=== PATIENT | female | born 1940 | race Caucasian/White ===

== ENCOUNTER → 2017-04-07 | Outpatient (CLI) | payer OTHER ==
[2016-03-06 23:33] VITALS: BP 155/73
--- NOTE | 2017-04-08 10:56 | MRI ---
HISTORY: Low back pain, no known injury, pain in legs Study: MRI lumbar spine without contrast Comparison: None Technique: Multiplanar multi-sequence MRI of the lumbar spine was obtained. Sagittal T1, sagittal T2 , and stir weighted images, axial T1, and axial T2 images were obtained. Findings: There is grade 1 anterolisthesis of L4 on L5. No abnormal cord or marrow signal identified. The conu s of the cord terminates normally. The surrounding soft tissues are within normal limits. Vertebral body heights are preserved. There is multilevel spondylosis and facet arthropathy present. T12 -- L1: No significant stenosis. L1 -- L2: Mild facet degenerative changes without significant stenosis. L2 -- L3: [id number] facet degenerative changes without significant stenosis. L3 -- L4: Uaei-[id number] facet degenerative changes without significant stenosis. L4 -- L5: Moderate to severe facet arthropathy with grade 1 anterolisthesis of L4 on L5. There is mod erate spinal stenosis due to these changes and a broad-based disc bulge as well as epidural lipomatos is. There is mild bilateral foraminal narrowing. L5 -- S1: There is epidural lipomatosis and moderate facet arthropathy. There is mild bilateral ashley inal narrowing. IMPRESSION: 1. Multilevel spondylosis and facet arthropathy most prominent at L4-5 where there is moderate spinal stenosis. 2. Mild bilateral foraminal narrowing at L4-5 and L5-S1. Reported By:
== END | disposition home or self-care (01) | DRG 552 ==
LOC: RAD 11:02
PROVIDERS: ATTEND Internal Medicine
DX: M54.5 Low back pain (principal); M47.896 Other spondylosis, lumbar region
CPT/HCPCS: 72148

== ENCOUNTER 2017-05-30 15:45 | Observation (INO) | payer OTHER ==
[2017-05-30] MEDS ORDERED: TUSSIONEX PENNKINETIC SUSP PO PRN (17:11)
[2017-05-30 17:26] LABS: BASOPHILS # (AUTO) 0.1 X10^3/uL (0.0-0.1); BASOPHILS % (AUTO) 0.6 % (0.2-1.0); EOSINOPHILS # (AUTO) 0.2 x10^3/uL (0.0-0.2); EOSINOPHILS % (AUTO) 1.6 % (0.9-2.9); HEMATOCRIT 39.5 % (36.0-47.0); HEMOGLOBIN 13.4 g/dL (12.0-16.0); LYMPHOCYTES # (AUTO) 1.6 X10^3/uL (1.3-2.9); LYMPHOCYTES % (AUTO) 13.2 % (21.0-51.0); MEAN CORPUSCULAR HEMOGLOBIN 30.5 pg (27.0-34.0); MEAN CORPUSCULAR HGB CONC 33.9 g/dL (33.0-35.0); MEAN CORPUSCULAR VOLUME 90.2 fL (80.0-100.0); MONOCYTES # (AUTO) 0.8 x10^3/uL (0.3-0.8); MONOCYTES % (AUTO) 6.4 % (0.0-13.0); NEUTROPHILS # (AUTO) 9.6 x10^3/uL (2.2-4.8); NEUTROPHILS % (AUTO) 78.2 % (42.0-75.0); PLATELET COUNT 278 X10^3/uL (150.0-450.0); RED BLOOD COUNT 4.38 X10^6/uL (3.5-5.4); RED CELL DISTRIBUTION WIDTH 15.1 % (11.6-16.5); WHITE BLOOD COUNT 12.3 X10^3/uL (3.6-10.0)
[2017-05-30 17:39] VITALS: BMI 32.5
[2017-05-30] MEDS ORDERED: SALINE 3% 15 ML NEB TX ONE (17:41)
[2017-05-30 17:47] LABS: PLATELET MORPHOLOGY COMMENT NORMAL (NORMAL)
[2017-05-30 17:50] LABS: ALANINE AMINOTRANSFERASE 59 Units/L (12-78); ALBUMIN 3.1 g/dL (3.4-5.0); ALKALINE PHOSPHATASE 147 Units/L (46-116); ASPARTATE AMINO TRANSFERASE 37 Units/L (15-37); BLOOD UREA NITROGEN 10 mg/dL (7-18); CALCIUM 8.8 mg/dL (8.5-10.1); CARBON DIOXIDE 25.7 mmol/L (21-32); CHLORIDE 104 mmol/L (98-107); COR CA(FOR HYPOALB) 9.5 mg/dL (8.5-10.1); CREATININE 0.87 mg/dL (0.55-1.02); SODIUM 140 mmol/L (136-145); eGFR BLACK RACES > 60 (>60); eGFR NON BLACK RACES > 60 (>60)
[2017-05-30] MEDS ORDERED: SALINE 3% 15 ML NEB TX NEB ONE (18:00)
[2017-05-30] MEDS ORDERED: NS 1/2 1000 ML IV 1,000 ML IV ONE (20:33)
[2017-05-30] MEDS: DUONEB 0.5 MG/3 MG NEB SCH (20:42)
[2017-05-30] MEDS ORDERED: MAALOX or MYLANTA PO PRN (21:45)
[2017-05-30] MEDS: NS 1/2 1000 ML IV 1,000 ML IV SCH (21:58)
[2017-05-30] MEDS: FORTAZ or TAZICEF INJ 1 GM in NS 100 ML IV + SPIKE MINIBAG* 100 ML IV SCH (21:58)
[2017-05-30] MEDS: ROBITUSSIN DM PO SCH (22:00)
[2017-05-30 22:23] LABS: CKMB % 2.8 % (<4); CREATINE KINASE 36 Units/L (26-192); CREATINE KINASE MB < 1.0 ng/mL (0-4.0); TROPONIN I < 0.02 ng/mL (0-1.5)
--- NOTE | 2017-05-30 22:36 | RAD ---
Indication: Wheezing and cough Exam: PA and lateral Comparison: 03/06/2016 Findings: The left ventricle is mildly enlarged. The pulmonary vessels are normal. The lungs are mild ly hyperinflated. No consolidation or effusion is seen. The bones are intact. Impression: Stable chronic changes with no acute abnormality seen. Reported By:
[2017-05-31 05:37] LABS: BASOPHILS # (AUTO) 0.1 X10^3/uL (0.0-0.1); BASOPHILS % (AUTO) 0.6 % (0.2-1.0); EOSINOPHILS # (AUTO) 0.2 x10^3/uL (0.0-0.2); EOSINOPHILS % (AUTO) 2.3 % (0.9-2.9); HEMATOCRIT 34.5 % (36.0-47.0); HEMOGLOBIN 11.9 g/dL (12.0-16.0); LYMPHOCYTES # (AUTO) 1.9 X10^3/uL (1.3-2.9); LYMPHOCYTES % (AUTO) 17.6 % (21.0-51.0); MEAN CORPUSCULAR HEMOGLOBIN 31.2 pg (27.0-34.0); MEAN CORPUSCULAR HGB CONC 34.6 g/dL (33.0-35.0); MEAN CORPUSCULAR VOLUME 90.2 fL (80.0-100.0); MEAN PLATELET VOLUME 7.2 fL (7.4-11.0); MONOCYTES # (AUTO) 0.9 x10^3/uL (0.3-0.8); MONOCYTES % (AUTO) 8.6 % (0.0-13.0); NEUTROPHILS # (AUTO) 7.6 x10^3/uL (2.2-4.8); NEUTROPHILS % (AUTO) 70.9 % (42.0-75.0); PLATELET COUNT 236 X10^3/uL (150.0-450.0); RED BLOOD COUNT 3.82 X10^6/uL (3.5-5.4); RED CELL DISTRIBUTION WIDTH 14.8 % (11.6-16.5); WHITE BLOOD COUNT 10.8 X10^3/uL (3.6-10.0)
[2017-05-31 05:46] LABS: ALANINE AMINOTRANSFERASE 49 Units/L (12-78); ALBUMIN 2.5 g/dL (3.4-5.0); ALKALINE PHOSPHATASE 121 Units/L (46-116); ASPARTATE AMINO TRANSFERASE 32 Units/L (15-37); BLOOD UREA NITROGEN 10 mg/dL (7-18); CALCIUM 8.2 mg/dL (8.5-10.1); CHLORIDE 107 mmol/L (98-107); COR CA(FOR HYPOALB) 9.4 mg/dL (8.5-10.1); SODIUM 142 mmol/L (136-145); TOTAL PROTEIN 5.9 g/dL (6.4-8.2); eGFR BLACK RACES > 60 (>60); eGFR NON BLACK RACES > 60 (>60)
[2017-05-31] MEDS: FORTAZ or TAZICEF INJ 1 GM in NS 100 ML IV + SPIKE MINIBAG* 100 ML IV SCH ×3 (05:51→21:14)
[2017-05-31 06:16] LABS: METAMYELOCYTES % 3; PLATELET MORPHOLOGY COMMENT NORMAL (NORMAL)
--- NOTE | 2017-05-31 06:45 | RAD ---
HISTORY: Pneumonia, wheezing Study: Single-view chest Comparison: 05/30/2017. Findings: Cardiac monitoring electrodes are noted on the chest. The trachea is midline. The heart size is upper normal with aortic uncoiling. The lungs are normally inflated. No infiltrate, CHF, pleural fluid or pneumothorax is seen. Osseous structures are intact. IMPRESSION: No acute cardiopulmonary disease. Reported By:
[2017-05-31] MEDS: DUONEB 0.5 MG/3 MG NEB SCH ×5 (08:30→20:16)
[2017-05-31] MEDS ORDERED: ZOFRAN INJ 4 MG VIAL IVP PRN (08:44)
[2017-05-31] MEDS ORDERED: PROCALAMINE 3 % 1,000 ML IV SCH ×2 (10:00→16:00)
[2017-05-31] MEDS ORDERED: NS 1/2 1000 ML IV 1,000 ML IV ONE (10:05)
[2017-05-31] MEDS: NS 1/2 1000 ML IV 1,000 ML IV SCH ×2 (10:40→16:37)
[2017-05-31] MEDS: ROBITUSSIN DM PO SCH ×5 (10:41→21:09)
[2017-05-31] MEDS: ALBUMIN HUMAN 25%- 100ML 100 ML IV SCH (10:41)
[2017-05-31] MEDS ORDERED: TYLENOL 325 MG TAB PO PRN (15:08)
[2017-05-31] MEDS ORDERED: ULTRAM PO PRN ×2 (17:06→17:47)
[2017-05-31] MEDS ORDERED: LEVOTHYROXINE SODIUM 125 MCG PO SCH (17:15)
[2017-05-31] MEDS ORDERED: VITAMIN D3 PO SCH (21:00)
[2017-05-31] MEDS ORDERED: THEOPHYLLINE 300 MG PO SCH (21:00)
[2017-05-31] MEDS ORDERED: CHOLECALCIFEROL PO SCH (21:00)
[2017-05-31] MEDS ORDERED: ZANAFLEX PO SCH (21:00)
[2017-05-31] MEDS ORDERED: ROPINIROLE HYDROCHLORIDE 0.25 MG PO SCH (21:00)
[2017-05-31] MEDS ORDERED: KLONOPIN TAB 1 MG PO SCH (21:00)
[2017-05-31] MEDS ORDERED: CLONAZEPAM 1 MG PO SCH (21:00)
[2017-05-31] MEDS ORDERED: PATIENT'S HOME MEDICATION (Tizanidine Hcl [Zanaflex 4 Mg] 1 TAB) PO SCH (21:00)
[2017-05-31] MEDS: THEO-DUR TAB 300 MG PO SCH (21:10)
[2017-05-31] MEDS: REQUIP PO SCH (21:10)
[2017-06-01 06:12] LABS: BASOPHILS # (AUTO) 0.1 X10^3/uL (0.0-0.1); BASOPHILS % (AUTO) 0.9 % (0.2-1.0); EOSINOPHILS # (AUTO) 0.3 x10^3/uL (0.0-0.2); EOSINOPHILS % (AUTO) 2.9 % (0.9-2.9); HEMATOCRIT 32.5 % (36.0-47.0); HEMOGLOBIN 11.1 g/dL (12.0-16.0); LYMPHOCYTES # (AUTO) 1.7 X10^3/uL (1.3-2.9); LYMPHOCYTES % (AUTO) 16.2 % (21.0-51.0); MEAN CORPUSCULAR HEMOGLOBIN 30.9 pg (27.0-34.0); MEAN CORPUSCULAR HGB CONC 34.3 g/dL (33.0-35.0); MEAN CORPUSCULAR VOLUME 90.2 fL (80.0-100.0); MEAN PLATELET VOLUME 7.5 fL (7.4-11.0); MONOCYTES # (AUTO) 0.9 x10^3/uL (0.3-0.8); MONOCYTES % (AUTO) 8.7 % (0.0-13.0); NEUTROPHILS # (AUTO) 7.5 x10^3/uL (2.2-4.8); NEUTROPHILS % (AUTO) 71.3 % (42.0-75.0); PLATELET COUNT 208 X10^3/uL (150.0-450.0); RED CELL DISTRIBUTION WIDTH 14.9 % (11.6-16.5); WHITE BLOOD COUNT 10.5 X10^3/uL (3.6-10.0)
--- NOTE | 2017-06-01 06:26 | RAD ---
HISTORY: Shortness of breath Study: Chest AP portable Comparison: May 31, 2017 Findings: The heart is mildly enlarged. No congestive heart failure is noted. No acute alveolar infiltrates or pleural effusions are identified. The bony thorax is unremarkable. IMPRESSION: Mild cardiomegaly without congestive heart failure No definite infiltrates Reported By:
[2017-06-01] MEDS: FORTAZ or TAZICEF INJ 1 GM in NS 100 ML IV + SPIKE MINIBAG* 100 ML IV SCH (06:34)
[2017-06-01 06:38] LABS: ALANINE AMINOTRANSFERASE 41 Units/L (12-78); ALBUMIN 2.8 g/dL (3.4-5.0); ALKALINE PHOSPHATASE 110 Units/L (46-116); ASPARTATE AMINO TRANSFERASE 23 Units/L (15-37); BLOOD UREA NITROGEN 10 mg/dL (7-18); CALCIUM 8.4 mg/dL (8.5-10.1); CARBON DIOXIDE 28.3 mmol/L (21-32); CHLORIDE 103 mmol/L (98-107); COR CA(FOR HYPOALB) 9.4 mg/dL (8.5-10.1); CREATININE 0.73 mg/dL (0.55-1.02); SODIUM 140 mmol/L (136-145); TOTAL PROTEIN 6.1 g/dL (6.4-8.2); eGFR BLACK RACES > 60 (>60); eGFR NON BLACK RACES > 60 (>60)
[2017-06-01] MEDS ORDERED: SYNTHROID 125 mcg TAB PO SCH (07:00)
[2017-06-01 07:16] LABS: PLATELET MORPHOLOGY COMMENT NORMAL (NORMAL)
[2017-06-01] MEDS ORDERED: NS 1/2 1000 ML IV 1,000 ML IV ONE (08:56)
[2017-06-01] MEDS: THEO-DUR TAB 300 MG PO SCH (08:59)
[2017-06-01] MEDS: ROBITUSSIN DM PO SCH ×2 (08:59→13:02)
[2017-06-01] MEDS: DUONEB 0.5 MG/3 MG NEB SCH ×2 (08:59→11:45)
[2017-06-01] MEDS ORDERED: MOBIC TAB 15 MG PO SCH (09:00)
[2017-06-01] MEDS ORDERED: ASPIRIN EC 81 MG PO SCH (09:00)
[2017-06-01] MEDS: REQUIP PO SCH (09:00)
[2017-06-01] MEDS: NS 1/2 1000 ML IV 1,000 ML IV SCH ×2 (09:00→11:25)
[2017-06-01] MEDS: ALBUMIN HUMAN 25%- 100ML 100 ML IV SCH (09:00)
[2017-06-01 13:09] VITALS: BP 136/68
--- NOTE | 2017-06-01 13:11 | DR.UPDATE ---
H&P Update History and Physical Update: was seen in the office on 05/30/17. A H&P was completed prior to admission. Patient has been seen and examined with no changes noted to H&P. Changes noted: NO Yes with the following:
--- NOTE | 2017-06-02 10:44 | PCM.PROG ---
Progress Note - Progress Note for Day of Date: 05/31/17 - Subjective Subjective: IS BEING TREATED FOR BRONCHOPNEUMONIA. TODAY, SHE IS ALERT AND ORIENTED, SITTING UP IN BED ON MORNING ROUNDS. PATIENTS FAMILY IS AT BEDSIDE. SHE CONTINUES WITH COMPLAINTS OF PRODUCTIVE COUGH AND SHORTNESS OF BREATH. SHE ALSO REPORTS NAUSEA THIS MORNING. SPUTUM AT BEDSIDE IS NOTED TO BE THICK AND YELLOW IN COLOR. ON EXAMINATION, HEART IS REGULAR IN RATE AND RHYTHM. BILATERAL LUNGS CONTINUE WITH SCATTERED WHEEZING AND RHONCHI. ABDOMEN IS ROUND, SOFT, AND NON-TENDER WITH NORMAL BOWEL SOUNDS NOTED IN ALL QUADRANTS. THERE IS NORMAL RANGE OF MOTION NOTED TO ALL EXTREMITIES. HER VITALS THIS MORNING ARE 98.2-94-20-93%-162/69. LABS WERE OBTAINED. ABNORMAL LAB VALUES INCLUDE THE FOLLOWING: WBC 10.8, HGB 11.9, HCT 34.5, GLUCOSE 100, CALCIUM 8.2, ALK PHOS 121 , TOTAL PROTEIN 5.9, ALBUMIN 2.5. SPUTUM AND BLOOD CULTURES ARE PENDING RESULTS. A CHEST XRAY WAS OBTAINED THIS MORNING AND REPORTED NO ACUTE CARDIOPULMONARY DISEASE. TODAY, WE WILL START PROCALAMINE AND ALBUMIN DUE TO PROTEIN DEFICIENCY. OTHERWISE, WE WILL CONTINUE WITH IV ANTIBIOTICS AND RESPIRATORY TREATMENTS. WE PLAN TO FOLLOW UP WITH AM LABS AND CHEST XRAY AND CONTINUE TO MONITOR PATIENT. - Past Medical Family Social History Past Med/Fam/Surg Hx: No changes since H&P Allergies: Allergies cefdinir Allergy (Mild, Verified 05/30/17 17:02) patient states it makes her itch all over and grabs at her hands. - Review of Systems ROS: No change since H&P - Vital Signs and I&O's Vital Signs: Temperature 98.9 F Pulse Rate [Right Brachial] 110 Pulse Rate 100 Respiratory Rate 20 Blood Pressure [Right Arm] 136/68 Blood Pressure 155/73 O2 Sat by Pulse Oximetry 92 Intake and Output: Intake & Output 05/30/17 05/31/17 06/01/17 06/02/17 11:59 11:59 11:59 11:59 Intake Total 1520 3090 Balance 1520 3090 - Physical Exam Oriented: Normal Eyes: Normal Ear: Normal Nose: Normal Throat: Normal Respiratory: Right, Left, Generalized, Wheezes, Rhonchi Cardiovascular: Normal. negative: S3, S4, Murmur : Normal Auscultation: Bowel Sounds: Normal Palpation: Normal Tenderness: Normal. negative: Rebound, Guarding, Rigidity Skin: Normal Musculoskeletal: Normal Psychiatric: Normal Mood Description: Calm Affect: Normal Speech Pattern: Clear, Appropriate - Laboratory and Diagnostics Result Diagrams: 06/01/17 04:50 06/01/17 04:50 Labs: 05/30/17 17:10 Blood Blood Culture - Preliminary 05/30/17 17:01 Blood Blood Culture - Preliminary 05/30/17 18:36 Sputum - Expectorated Sputum Sputum Culture - Final 05/30/17 18:36 Sputum - Expectorated Sputum - Final Laboratory WBC 10.5 X10^3/uL (3.6-10.0) H 06/01/17 04:50 RBC 3.60 X10^6/uL (3.5-5.4) 06/01/17 04:50 Hgb 11.1 g/dL (12.0-16.0) L 06/01/17 04:50 Hct 32.5 % (36.0-47.0) L 06/01/17 04:50 MCV 90.2 fL (80.0-100.0) 06/01/17 04:50 MCH 30.9 pg (27.0-34.0) 06/01/17 04:50 MCHC 34.3 g/dL (33.0-35.0) 06/01/17 04:50 RDW 14.9 % (11.6-16.5) 06/01/17 04:50 Plt Count 208 X10^3/uL (150.0-450.0) 06/01/17 04:50 Plt Count Comment Adequate (ADEQUATE) 06/01/17 04:50 MPV 7.5 fL (7.4-11.0) 06/01/17 04:50 Neut % 71.3 % (42.0-75.0) 06/01/17 04:50 Lymph % 16.2 % (21.0-51.0) L 06/01/17 04:50 [place] % 8.7 % (0.0-13.0) 06/01/17 04:50 Eos % 2.9 % (0.9-2.9) 06/01/17 04:50 Baso % 0.9 % (0.2-1.0) 06/01/17 04:50 Neut # 7.5 x10^3/uL (2.2-4.8) H 06/01/17 04:50 Lymph # 1.7 X10^3/uL (1.3-2.9) 06/01/17 04:50 [place] # 0.9 x10^3/uL (0.3-0.8) H 06/01/17 04:50 Eos # 0.3 x10^3/uL (0.0-0.2) H 06/01/17 04:50 Baso # 0.1 X10^3/uL (0.0-0.1) 06/01/17 04:50 Absolute Nucleated RBC 0.0 /100WBC 06/01/17 04:50 Total Counted 100 06/01/17 04:50 Neutrophils % (Manual) 71 % (39-76) 06/01/17 04:50 Lymphocytes % (Manual) 19 % (13-43) 06/01/17 04:50 Monocytes % (Manual) 8 % (4-9) 06/01/17 04:50 Eosinophils % (Manual) 2 % (0-6) 06/01/17 04:50 Metamyelocytes % 3 05/31/17 04:42 Atypical Lymphocytes 2 05/30/17 17:01 Plt Morphology Comment Normal (NORMAL) 06/01/17 04:50 RBC Morphology Normal (NORMAL) 06/01/17 04:50 Sodium 140 mmol/L (136-145) 06/01/17 04:50 Corrected Sodium TNP 06/01/17 04:50 Potassium 4.3 mmol/L (3.5-5.1) 06/01/17 04:50 Chloride 103 mmol/L (98-107) 06/01/17 04:50 Carbon Dioxide 28.3 mmol/L (21-32) 06/01/17 04:50 BUN 10 mg/dL (7-18) 06/01/17 04:50 Creatinine 0.73 mg/dL (0.55-1.02) 06/01/17 04:50 Est GFR (MDRD) Af Amer > 60 (>60) 06/01/17 04:50 Est GFR (MDRD) Non-Af > 60 (>60) 06/01/17 04:50 Glucose 106 mg/dL (65-99) H 06/01/17 04:50 Calcium 8.4 mg/dL (8.5-10.1) L 06/01/17 04:50 Corrected Calcium 9.4 mg/dL (8.5-10.1) 06/01/17 04:50 Total Bilirubin 0.40 mg/dL (0.2-1.0) 06/01/17 04:50 AST 23 Units/L (15-37) 06/01/17 04:50 ALT 41 Units/L (12-78) 06/01/17 04:50 Alkaline Phosphatase 110 Units/L (46-116) 06/01/17 04:50 Creatine Kinase 36 Units/L (26-192) 05/30/17 21:53 CK-MB (CK-2) < 1.0 ng/mL (0-4.0) 05/30/17 21:53 CK/CKMB % Calc 2.8 % (<4) 05/30/17 21:53 Troponin I < 0.02 ng/mL (0-1.5) 05/30/17 21:53 Total Protein 6.1 g/dL (6.4-8.2) L 06/01/17 04:50 Albumin 2.8 g/dL (3.4-5.0) L 06/01/17 04:50 Globulin 3.3 g/dL (2.5-4.5) 06/01/17 04:50 Albumin/Globulin Ratio 0.8 Ratio (1.1-2.1) L 06/01/17 04:50 - Plan (1) Bronchopneumonia Status: Acute Plan: CONTINUE PNEUMONIA PROTOCOL, CONTINUE FORTAZ, CONTINUE SUPPLEMENTAL OXYGEN , CONTINUE TO MONITOR
== END 2017-06-01 13:15 | disposition home or self-care (01) ==
LOC: MED/SURG 15:45
PROVIDERS: ADMIT Internal Medicine; ATTEND Internal Medicine
DX: J18.0 Bronchopneumonia, unspecified organism (principal); E03.8 Other specified hypothyroidism; I10 Essential (primary) hypertension; E55.9 Vitamin D deficiency, unspecified; J44.9 Chronic obstructive pulmonary disease, unspecified; R06.02 Shortness of breath; D72.828 Other elevated white blood cell count
CPT/HCPCS: 36415; 71045; 71046; 80053; 82550; 82553; 84484; 85025; 87040; 87070; 87205; 93005; 94640; 94760; A4222; B5200; P9047; G0378; J0713; J2405; J7620

== ENCOUNTER 2020-05-19 16:50 | Inpatient (IN) ==
[2020-05-19 17:07] LABS: ABG BASE EXCESS 2.3 mmol/L (-2.0-2.0)
[2020-05-19 17:10] VITALS: BMI 32.3
--- NOTE | 2020-05-19 17:23 | DR.SOBA ---
HPI Time Seen Time Seen by Provider: 05/19/20 17:09 HPI Comment HPI Comment: PATIENT WITH A HISTORY OF COPD, CONGESTIVE HEART FAILURE, RECENTLY HOSPITALIZED AT [facility] IN [facility], 2 WEEKS AGO, INTUBATED FOR RESPIRATORY FAILURE. NOW COMPLAINS OF INCREASING DYSPNEA X 1 WEEK ASSOCIATED WITH A PRODUCTIVE COUGH CLEAR SPUTUM AND ORTHOPNEA. DENIES CHEST PAIN, FEVER, CHILLS. HOSPITALIZED 02/01/2020 AT [facility] FOR RESPIRATORY FAILURE, PLACED ON VENTILATOR. Complaints Chief Complaint Doctors Comments: PRODUCTIVE COUGH, DIFFICULTY BREATHING COVID-19 Coronavirus risk:travel/contact w/high risk person: No Has patient experienced Coronavirus symptoms: No Reviewed Nurses Notes Reviewed: Yes Source History Provided: Patient and EMS Mode of Arrival Mode of Arrival: Ambulatory Timing Onset of Chief Complaint: 04/14/20 Context Onset:: At Rest History of:: COPD, CHF and Intubation Modifying Factors Worsens:: Exertion and Lying Flat Associated Signs and Symptoms Associated Signs and Symptoms: Cough If Cough Cough: Productive and Clear PMH PMH Past Medical History: Angina, Asthma and Hypothyroidism Past Surgical History: Yes Surgical History: Angioplasty/Stents and Cholecystectomy Family History Family Medical History: Cancer, Coronary Artery Disease and Hypertension Social History Do you use any recreational Drugs:: No Travel Risk Coronavirus risk:travel/contact w/high risk person: No Has patient experienced Coronavirus symptoms: No Infectious screening Isolation: Standard ROS Review of Systems Constitutional: No Symptoms Reported Eyes: No Symptoms Reported ENTM: No Symptoms Reported Respiratoy: See HPI, Productive Cough, Orthopnea and Short of Breath Cardiovascular: See HPI and Other (DYSPNEA AT REST) Gastrointestinal/Abdominal: No Symptoms Reported Genitourinary: No Symptoms Reported Neurological: No Symptoms Reported Musculoskeletal: No Symptoms Reported Integumentary: No Symptoms Reported Hematologic/Lymphatic: No Symptoms Reported Endocrine: No Symptoms Reported Psychiatric: No Symptoms Reported All Other Systems: Reviewed and Negative PE Vital Signs Vitals: Temperature 99.7 F Pulse Rate 84 Respiratory Rate 27 Blood Pressure [Right Arm] 127/83 Blood Pressure 140/65 O2 Sat by Pulse Oximetry 98 General Limitations: No Limitations General Appearance: Alert and In Distress (MILD TACHYPNEA) Head Head Exam: Normal Inspection Eyes Eye exam: Normal Appearance and PERRL ENT ENT Exam: Normal Exam Neck Neck Exam: Normal Inspection and Full ROM Chest Chest Inspection: Normal Inspection and Symmetric Chest Wall Rise Respiratory Respiratory Exam: Other (COARSE BREATH SOUNDS, NO WHEEZES, RALES OR RHONCHI) Respiratory Exam: Bilateral: Clear to Auscultation Cardiovascular Cardiovascular Exam: Normal Rhythm, Tachycardia and JVD (MILD JVD AT 30 DEGREES ANGLE OF MANDIBLE) Abdominal Exam Abdominal Exam: Normal Inspection, Normal Bowel Sounds and Soft Extremities Extremities Exam: Edema (1+ PRETIBIAL EDEMA) Back Back Exam: Normal Inspection Neurologic Neurological Exam: Alert and Oriented X3 Psychiatric Psychiatric Exam: Normal Affect and Normal Mood Skin Skin Exam: Warm, Dry, Intact and Normal Color MDM Differential Diagnosis Differential Diagnosis: CHF, COPD, Pneumonia and Pulmonary embolism COURSE Treatment Treatment: ARRIVED TO EMERGENCY ROOM PULSE OXIMETRY 89% ROOM AIR, PLACED ON OXYGEN 3 LITERS NASAL CANNULA, PULSE OX IMPROVED TO 97%, AFTER 2 SETS OF BLOOD CULTURES ADMINISTERED LEVAQUIN 500 MG IVPB Consultation Call Returned: 19:35 Consultation Comments: DISCUSSED WITH DR MARTINO AT 1935 FOR ADMISSION Education/Counseling Education/Counseling: Patient and Counseling Educated On: Treatment and Diagnosis ROR Labs Reviewed Result Diagrams: 05/19/20 17:17 05/19/20 17:17 Laboratory: WBC 9.7 X10^3/uL (3.6-10.0) 05/19/20 17:17 RBC 3.07 X10^6/uL (3.5-5.4) L 05/19/20 17:17 Hgb 9.4 g/dL (12.0-16.0) L 05/19/20 17:17 Hct 27.9 % (36.0-47.0) L 05/19/20 17:17 MCV 90.9 fL (80.0-100.0) 05/19/20 17:17 MCH 30.8 pg (27.0-34.0) 05/19/20 17:17 MCHC 33.9 g/dL (33.0-35.0) 05/19/20 17:17 RDW 15.9 % (11.6-16.5) 05/19/20 17:17 Plt Count 534 X10^3/uL (150.0-450.0) H 05/19/20 17:17 Plt Count Comment Increased (ADEQUATE) A 05/19/20 17:17 MPV 6.5 fL (7.4-11.0) L 05/19/20 17:17 Neut % (Auto) 92.4 % (42.0-75.0) H 05/19/20 17:17 Lymph % (Auto) 4.9 % (21.0-51.0) L 05/19/20 17:17 [place] % (Auto) 2.2 % (0.0-13.0) 05/19/20 17:17 Eos % (Auto) 0.1 % (0.9-2.9) L 05/19/20 17:17 Baso % (Auto) 0.4 % (0.2-1.0) 05/19/20 17:17 Neut # (Auto) 9.0 x10^3/uL (2.2-4.8) H 05/19/20 17:17 Lymph # (Auto) 0.5 X10^3/uL (1.3-2.9) L 05/19/20 17:17 [place] # (Auto) 0.2 x10^3/uL (0.3-0.8) L 05/19/20 17:17 Eos # (Auto) 0.0 x10^3/uL (0.0-0.2) 05/19/20 17:17 Baso # (Auto) 0.0 X10^3/uL (0.0-0.1) 05/19/20 17:17 Absolute Nucleated RBC 0.0 /100WBC 05/19/20 17:17 Total Counted 100 05/19/20 17:17 Neutrophils % (Manual) 84 % (39-76) H 05/19/20 17:17 Band Neutrophils % 8 % (0-10) 05/19/20 17:17 Lymphocytes % (Manual) 8 % (13-43) L 05/19/20 17:17 Plt Morphology Comment Normal (NORMAL) 05/19/20 17:17 RBC Morphology Normal (NORMAL) 05/19/20 17:17 D-Dimer 0.50 ug/ml (0.0-0.57) 05/19/20 17:17 Sample Site [facility] 05/19/20 17:00 ABG pH 7.500 (7.35-7.45) H 05/19/20 17:00 ABG pCO2 32.0 mmHg (35.0-45.0) L 05/19/20 17:00 ABG pO2 66.0 mmHg (80.0-100.0) L 05/19/20 17:00 ABG HCO3 25.0 mmol/L (22-26) 05/19/20 17:00 ABG O2 Saturation 94.0 % (90-100) 05/19/20 17:00 ABG Base Excess 2.3 mmol/L (-2.0-2.0) H 05/19/20 17:00 Toro Test N/a 05/19/20 17:00 A-a Gradient 44.0 mmHg 05/19/20 17:00 FiO2 21.0 05/19/20 17:00 Blood Gas Comments Pt nuria well elj cdn 05/19/20 17:00 Sodium 135 mmol/L (136-145) L 05/19/20 17:17 Corrected Sodium 136 mmol/L (136-145) 05/19/20 17:17 Potassium 3.7 mmol/L (3.5-5.1) 05/19/20 17:17 Chloride 99 mmol/L (98-107) 05/19/20 17:17 Carbon Dioxide 24.3 mmol/L (21-32) 05/19/20 17:17 BUN 11 mg/dL (7-18) 05/19/20 17:17 Creatinine 0.91 mg/dL (0.55-1.02) 05/19/20 17:17 Est GFR (MDRD) Af Amer > 60 (>60) 05/19/20 17:17 Est GFR (MDRD) Non-Af > 60 (>60) 05/19/20 17:17 Glucose 129 mg/dL (65-99) H 05/19/20 17:17 Lactic Acid 0.8 mmol/L (0.4-2.0) 05/19/20 17:17 Calcium 8.0 mg/dL (8.5-10.1) L 05/19/20 17:17 Corrected Calcium 8.8 mg/dL (8.5-10.1) 05/19/20 17:17 Total Bilirubin 0.40 mg/dL (0.2-1.0) 05/19/20 17:17 AST 21 Units/L (15-37) 05/19/20 17:17 ALT 18 Units/L (12-78) 05/19/20 17:17 Alkaline Phosphatase 99 Units/L (46-116) 05/19/20 17:17 Creatine Kinase 13 Units/L (26-192) L 05/19/20 17:17 CK-MB (CK-2) < 1.0 ng/mL (0-4.0) 05/19/20 17:17 CK/CKMB % Calc 7.7 % (<4) 05/19/20 17:17 Troponin I < 0.02 ng/mL (0-1.5) 05/19/20 17:17 B-Natriuretic Peptide 20.5 pg/mL (0-79) 05/19/20 17:17 Total Protein 6.5 g/dL (6.4-8.2) 05/19/20 17:17 Albumin 3.0 g/dL (3.4-5.0) L 05/19/20 17:17 Globulin 3.5 g/dL (2.5-4.5) 05/19/20 17:17 Albumin/Globulin Ratio 0.9 Ratio (1.1-2.1) L 05/19/20 17:17 SARS-CoV-2 (PCR) Positive (NEGATIVE) A 05/19/20 17:40 Influenza Type A (PCR) Negative (NEGATIVE) 05/19/20 17:40 Influenza Type B (PCR) Negative (NEGATIVE) 05/19/20 17:40 RSV (PCR) Negative (NEGATIVE) 05/19/20 17:40 XRAY X-ray Results: PA AND LAT CHEST XRAY CONSISTENT WITH MODERATE TO MODERATE CARDIOMEGALY, PERIBRONCHIAL CUFFING IN THE RIGHT HILAR REGION, PROMINENT PERIPHERAL PULMONARY VASCULATURE, PATCHY AIRSPACE DISEASE IN THE LOWER LOBES, NO PLEURAL EFFUSION, OR PNEUMOTHORAX EKG Rate: 100 [place]: Normal Rhythm: NSR and ST Hypertrophy: LVH Opioid Opioid Risk Tool Age (Lei box if 16-45): No History of Preadolescent Sexual Abuse: No Total: 0 Total Score Risk Category: Low Risk Copyright: Valente LR predicting aberrant behaviors Diagnosis Discharge Problem: Pneumonia due to COVID-19 virus, Congestive heart failure, Acute dyspnea
--- NOTE | 2020-05-19 17:35 | RAD ---
HISTORYSHORTNESS OF BREATH, WORSE WITH CLEAR SPUTUM PRODUCTION. PTS PHYSICIAN CALLS DEPARTMENT AND STATES THAT HE THINKS PT IS IN EARLY HEART FAILURE. PT STATES THAT SHE HAS BEEN HOME FROM [facility] IN [facility] FOR THE LAST WEEK AND FEELS LIKE [facility] radiographic [facility], AP projection, 1 imageFINDINGSModerate to severe cardiomegaly.Peribronchial cuffing in the right hilar region.Prominent peripheral pulmonary vasculature.Patchy airspace disease in the lower lobes.No pleural effusion.No pneumothorax.No acute osseous abnormality.IMPRESSIONFindings could represent acute cardiogenic edema; although an atypical/viral infectious process could also be considered.Electronically signed by: Tony Velasquez (May 19, 2020 17:33:46)
[2020-05-19] MEDS ORDERED: LEVAQUIN PREMIX IV 500 MG 500 MG/100 ML BAG IV STA (17:38)
[2020-05-19 17:41] LABS: LYMPHOCYTES # (AUTO) 0.5 X10^3/uL (1.3-2.9); MEAN PLATELET VOLUME 6.5 fL (7.4-11.0)
[2020-05-19 17:56] LABS: LACTIC ACID 0.8 mmol/L (0.4-2.0)
[2020-05-19 17:57] LABS: BASOPHILS % (AUTO) 0.4 % (0.2-1.0); BLOOD UREA NITROGEN 11 mg/dL (7-18); CARBON DIOXIDE 24.3 mmol/L (21-32); CHLORIDE 99 mmol/L (98-107); COR NA(FOR HYPERGLY) 136 mmol/L (136-145); CREATININE 0.91 mg/dL (0.55-1.02); EOSINOPHILS % (AUTO) 0.1 % (0.9-2.9); HEMATOCRIT 27.9 % (36.0-47.0); HEMOGLOBIN 9.4 g/dL (12.0-16.0); LYMPHOCYTES % (AUTO) 4.9 % (21.0-51.0); MEAN CORPUSCULAR HEMOGLOBIN 30.8 pg (27.0-34.0); MEAN CORPUSCULAR HGB CONC 33.9 g/dL (33.0-35.0); MEAN CORPUSCULAR VOLUME 90.9 fL (80.0-100.0); MONOCYTES # (AUTO) 0.2 x10^3/uL (0.3-0.8); MONOCYTES % (AUTO) 2.2 % (0.0-13.0); NEUTROPHILS % (AUTO) 92.4 % (42.0-75.0); PLATELET COUNT 534 X10^3/uL (150.0-450.0); RED BLOOD COUNT 3.07 X10^6/uL (3.5-5.4); RED CELL DISTRIBUTION WIDTH 15.9 % (11.6-16.5); SODIUM 135 mmol/L (136-145); TROPONIN I < 0.02 ng/mL (0-1.5); WHITE BLOOD COUNT 9.7 X10^3/uL (3.6-10.0); eGFR NON BLACK RACES > 60 (>60)
[2020-05-19 18:02] LABS: ALANINE AMINOTRANSFERASE 18 Units/L (12-78); ALKALINE PHOSPHATASE 99 Units/L (46-116); ASPARTATE AMINO TRANSFERASE 21 Units/L (15-37); CKMB % 7.7 % (<4); COR CA(FOR HYPOALB) 8.8 mg/dL (8.5-10.1); CREATINE KINASE 13 Units/L (26-192); CREATINE KINASE MB < 1.0 ng/mL (0-4.0); TOTAL PROTEIN 6.5 g/dL (6.4-8.2)
[2020-05-19 18:15] LABS: BAND NEUTROPHILS % 8 % (0-10)
[2020-05-19] MEDS ORDERED: NS 100 ML IV 100 ML IV ONE (18:16)
[2020-05-19] MEDS ORDERED: LEVAQUIN PREMIX IV 500 MG 500 MG/100 ML BAG IV ONE (18:16)
[2020-05-19 18:17] LABS: PLATELET MORPHOLOGY COMMENT NORMAL (NORMAL)
[2020-05-19] MEDS ORDERED: LASIX IVP ONE ×2 (19:38→19:49)
[2020-05-19] MEDS ORDERED: IVERMECTIN PO ONE (22:21)
[2020-05-19] MEDS ORDERED: PHARMACY CONSULT - IVERMECTIN XX SCH (22:21)
[2020-05-19] MEDS ORDERED: REMDESIVIR 200 MG in NS 250 ML IV 250 ML IV ONE (22:21)
[2020-05-19] MEDS ORDERED: REMDESIVIR IV ONE (22:27)
[2020-05-19] MEDS ORDERED: NS 250 ML IV 250 ML IV ONE (22:27)
[2020-05-19 22:54] LABS: BASOPHILS % (AUTO) 0.3 % (0.2-1.0); HEMATOCRIT 29.8 % (36.0-47.0); HEMOGLOBIN 9.9 g/dL (12.0-16.0); LYMPHOCYTES # (AUTO) 0.6 X10^3/uL (1.3-2.9); LYMPHOCYTES % (AUTO) 7.9 % (21.0-51.0); MEAN CORPUSCULAR HEMOGLOBIN 30.1 pg (27.0-34.0); MEAN CORPUSCULAR HGB CONC 33.4 g/dL (33.0-35.0); MEAN CORPUSCULAR VOLUME 90.1 fL (80.0-100.0); MEAN PLATELET VOLUME 6.3 fL (7.4-11.0); MONOCYTES # (AUTO) 0.6 x10^3/uL (0.3-0.8); MONOCYTES % (AUTO) 6.9 % (0.0-13.0); NEUTROPHILS # (AUTO) 6.9 x10^3/uL (2.2-4.8); NEUTROPHILS % (AUTO) 84.9 % (42.0-75.0); PLATELET COUNT 559 X10^3/uL (150.0-450.0); RED CELL DISTRIBUTION WIDTH 16.4 % (11.6-16.5); WHITE BLOOD COUNT 8.1 X10^3/uL (3.6-10.0)
[2020-05-19 23:08] LABS: ALANINE AMINOTRANSFERASE 18 Units/L (12-78); ALKALINE PHOSPHATASE 104 Units/L (46-116); ASPARTATE AMINO TRANSFERASE 21 Units/L (15-37); BLOOD UREA NITROGEN 13 mg/dL (7-18); CALCIUM 8.3 mg/dL (8.5-10.1); CARBON DIOXIDE 28.2 mmol/L (21-32); CHLORIDE 98 mmol/L (98-107); COR CA(FOR HYPOALB) 9.1 mg/dL (8.5-10.1); COR NA(FOR HYPERGLY) 135 mmol/L (136-145); CREATININE 0.98 mg/dL (0.55-1.02); SODIUM 135 mmol/L (136-145); TOTAL PROTEIN 6.8 g/dL (6.4-8.2); TROPONIN I < 0.02 ng/mL (0-1.5); eGFR NON BLACK RACES 58 (>60)
[2020-05-20] MEDS: NS 1000 ML 1,000 ML IV SCH (00:40)
[2020-05-20] MEDS: LOVENOX INJ 30 MG SYR SC SCH ×3 (00:41→21:25)
[2020-05-20] MEDS: DECADRON TAB PO SCH ×2 (00:41→10:25)
[2020-05-20] MEDS: PEPCID TAB 40 MG PO SCH ×3 (00:41→21:34)
[2020-05-20] MEDS ORDERED: MELATONIN PO ONE (00:43)
[2020-05-20] MEDS: ASCORBIC ACID INJ MULTI-DOSE VIAL 1,500 MG in NS 100 ML IV 100 ML IV SCH ×4 (03:05→21:35)
--- NOTE | 2020-05-20 05:48 | RAD ---
PROCEDURE: Chest X-ray 1 View .HISTORY: DYSPNEA .TECHNIQUE: AP view .COMPARISON: 05/19/2020.TECHNICAL QUALITY: Satisfactory .FINDINGS:Unchanged cardiomegaly.Normal central vascularity.Some mild patchy consolidation both lung magallanes similar to previous study with no pleural fluid or pneumothorax.IMPRESSION:Unchanged cardiomegaly with bilateral patchy pneumonia.Electronically signed by: Adair Godinez (May 20, 2020 05:46:56)
[2020-05-20] MEDS ORDERED: IVERMECTIN PO ONE (09:00)
[2020-05-20] MEDS ORDERED: VIBRAMYCIN PO SCH (09:00)
[2020-05-20] MEDS ORDERED: LASIX IVP SCH (09:00)
[2020-05-20] MEDS ORDERED: VITAMIN D (1.25MG) PO SCH (09:00)
[2020-05-20] MEDS ORDERED: VITAMIN A PO SCH (09:00)
[2020-05-20] MEDS: ZINC SULFATE PO SCH ×2 (10:25→21:34)
[2020-05-20] MEDS: LIPITOR TAB 80 MG PO SCH (10:26)
[2020-05-20] MEDS: TRICOR TAB 160 MG PO SCH (10:26)
[2020-05-20] MEDS: THIAMINE HCL INJ IVP SCH ×2 (10:27→21:35)
[2020-05-20] MEDS: SYNTHROID 100 mcg TAB PO SCH (10:27)
[2020-05-20] MEDS ORDERED: ACTEMRA 400 MG in NS 100 ML IV 80 ML IV SCH (11:00)
[2020-05-20] MEDS ORDERED: VALIUM PO ONE (11:34)
[2020-05-20] MEDS ORDERED: MUCOMYST 20% 200 MG/ML NEB SCH (11:45)
[2020-05-20] MEDS ORDERED: MAGIC MOUTHWASH MT PRN (11:52)
[2020-05-20] MEDS: DIFLUCAN PO SCH (12:58)
[2020-05-20] MEDS: LEVAQUIN PREMIX IV 500 MG 500 MG/100 ML BAG IV SCH (12:58)
[2020-05-20] MEDS: FORTAZ or TAZICEF VIAL INJ 1 G in NS 100 ML IV + SPIKE MINIBAG* 100 ML IV SCH ×3 (12:58→21:32)
[2020-05-20] MEDS: ZyrTEC TAB 10 MG PO SCH (12:58)
[2020-05-20] MEDS: PROTONIX TAB 40 MG PO SCH (12:58)
[2020-05-20] MEDS: PULMICORT NEB TX 0.5 MG NEB SCH ×2 (12:59→22:15)
[2020-05-20] MEDS: BROVANA IN SCH ×2 (12:59→22:08)
[2020-05-20] MEDS: ROBITUSSIN DM PO SCH ×3 (12:59→21:36)
[2020-05-20] MEDS ORDERED: NS 100 ML IV 100 ML IV ONE (13:06)
--- NOTE | 2020-05-20 13:46 | CT ---
HISTORYSOB/ COVID +STUDYCTA CHESTCOMPARISONCTA chest 12/26/2018TECHNIQUEMultiple CT axial images of the chest were obtained with IV contrast. Coronal and sagittal images were reconstructed. 3D reconstructions using axial MIPS imaging was performed and reviewed. Dose reduction techniques included Automated Exposure Control (AEC) and adjustment of mA and kV.Stenoses are measured using NASCET criteria.FINDINGSPulmonary arteries are identified to segmental branches. There are no pulmonary emboli.Cardiomegaly is stable.Atherosclerotic calcifications are present in the coronary arteries. The pulmonary artery and aorta have a normal caliber. No mediastinal mass or significant lymphadenopathy.No thyroid abnormality.No axillary mass or significant axillary lymphadenopathy is identified.Focal areas ground-glass opacity are present, some with linear areas. Findings are compatible with bronchopneumonia. The appearance is typical for COVID-19.No pleural effusion or pneumothorax. No lung cavitation.Surgical clips are present at the esophagogastric junction.Surgical clips are present in the gallbladder fossa from a cholecystectomy. Degenerative changes are present in the spine.IMPRESSION1. No pulmonary emboli2. Bronchopneumonia typical for COVID-193. Cardiomegaly with CADElectronically signed by: Farooq Wilson (May 20, 2020 13:45:13)
[2020-05-20] MEDS: SOLU-Medrol 125 MG VIAL IVP SCH ×2 (13:48→21:34)
[2020-05-20] MEDS: ACCUNEB 1.25 MG NEBULE NEB SCH ×2 (14:03→17:40)
[2020-05-20] MEDS: MUCOMYST 20% 200 MG/ML NEB SCH (14:03)
[2020-05-20] MEDS: TESSALON PERLES PO SCH ×2 (14:11→21:34)
[2020-05-20 16:01] LABS: CRYPTOSPORIDIUM PARVUM ANTIGEN NEGATIVE (NEGATIVE); GIARDIA LAMBLIA ANTIGEN NEGATIVE (NEGATIVE)
[2020-05-20] MEDS ORDERED: LOMOTIL PO PRN (17:32)
[2020-05-20] MEDS: SINGULAIR TAB 10 MG PO SCH (21:33)
[2020-05-20] MEDS: MELATONIN PO SCH (21:34)
[2020-05-21] MEDS: SOLU-Medrol 125 MG VIAL IVP SCH ×4 (00:26→17:22)
[2020-05-21] MEDS: MUCOMYST 20% 200 MG/ML NEB SCH ×4 (01:15→17:45)
[2020-05-21] MEDS: ACCUNEB 1.25 MG NEBULE NEB SCH ×4 (01:15→17:45)
[2020-05-21] MEDS: ASCORBIC ACID INJ MULTI-DOSE VIAL 1,500 MG in NS 100 ML IV 100 ML IV SCH ×4 (02:43→21:38)
[2020-05-21] MEDS: NS 1000 ML 1,000 ML IV SCH ×2 (02:48→22:32)
[2020-05-21] MEDS: FORTAZ or TAZICEF VIAL INJ 1 G in NS 100 ML IV + SPIKE MINIBAG* 100 ML IV SCH ×3 (05:33→22:32)
[2020-05-21] MEDS: TESSALON PERLES PO SCH ×3 (05:34→22:31)
[2020-05-21 06:05] LABS: BASOPHILS % (AUTO) 0.1 % (0.2-1.0); HEMATOCRIT 24.7 % (36.0-47.0); HEMOGLOBIN 8.6 g/dL (12.0-16.0); LYMPHOCYTES # (AUTO) 0.7 X10^3/uL (1.3-2.9); LYMPHOCYTES % (AUTO) 18.5 % (21.0-51.0); MEAN CORPUSCULAR HGB CONC 34.8 g/dL (33.0-35.0); MEAN CORPUSCULAR VOLUME 89.1 fL (80.0-100.0); MEAN PLATELET VOLUME 6.4 fL (7.4-11.0); MONOCYTES # (AUTO) 0.4 x10^3/uL (0.3-0.8); NEUTROPHILS # (AUTO) 2.6 x10^3/uL (2.2-4.8); NEUTROPHILS % (AUTO) 71.4 % (42.0-75.0); PLATELET COUNT 477 X10^3/uL (150.0-450.0); RED BLOOD COUNT 2.78 X10^6/uL (3.5-5.4); RED CELL DISTRIBUTION WIDTH 15.8 % (11.6-16.5); WHITE BLOOD COUNT 3.7 X10^3/uL (3.6-10.0)
[2020-05-21 06:13] LABS: ALANINE AMINOTRANSFERASE 15 Units/L (12-78); ALBUMIN 2.6 g/dL (3.4-5.0); ALKALINE PHOSPHATASE 88 Units/L (46-116); ASPARTATE AMINO TRANSFERASE 21 Units/L (15-37); BLOOD UREA NITROGEN 13 mg/dL (7-18); CALCIUM 7.6 mg/dL (8.5-10.1); CARBON DIOXIDE 27.2 mmol/L (21-32); CHLORIDE 104 mmol/L (98-107); COR CA(FOR HYPOALB) 8.7 mg/dL (8.5-10.1); COR NA(FOR HYPERGLY) 141 mmol/L (136-145); CREATININE 0.75 mg/dL (0.55-1.02); SODIUM 140 mmol/L (136-145); TOTAL PROTEIN 5.9 g/dL (6.4-8.2); eGFR NON BLACK RACES > 60 (>60)
[2020-05-21 07:09] LABS: ABG ALLEN TEST POSS; ABG HCO3 27.1 mmol/L (22-26)
--- NOTE | 2020-05-21 07:42 | RAD ---
HISTORYSOBSTUDYCHEST, 1 VIEWCOMPARISONOne-view chest May 20, 2020.FINDINGSThe trachea is midline. The cardiac silhouette is enlarged but stable to prior day's film.. The peripheral infiltrates right greater than left are stable compared to prior day's exam. There is no effusion. The bony thorax is unremarkable.IMPRESSIONStable cardiomegaly and bilateral infiltrates consistent with bronchopneumonia are stable compared to yesterday's chest film and CT scan.Electronically signed by: GURDEEP OH (May 21, 2020 07:40:43)
[2020-05-21] MEDS: LIPITOR TAB 80 MG PO SCH (08:20)
[2020-05-21] MEDS: VITAMIN D3 125 mcg (5,000 UNITS) PO SCH (08:20)
[2020-05-21] MEDS: SYNTHROID 100 mcg TAB PO SCH (08:20)
[2020-05-21] MEDS: ROBITUSSIN DM PO SCH ×4 (08:20→21:37)
[2020-05-21] MEDS: ZyrTEC TAB 10 MG PO SCH (08:20)
[2020-05-21] MEDS: PROTONIX TAB 40 MG PO SCH (08:20)
[2020-05-21] MEDS: THIAMINE HCL INJ IVP SCH ×2 (08:20→21:37)
[2020-05-21] MEDS: TRICOR TAB 160 MG PO SCH (08:20)
[2020-05-21] MEDS: DIFLUCAN PO SCH (08:20)
[2020-05-21] MEDS: PEPCID TAB 40 MG PO SCH ×2 (08:20→21:36)
[2020-05-21] MEDS ORDERED: VITAMIN A PO SCH (09:00)
[2020-05-21] MEDS: LEVAQUIN PREMIX IV 500 MG 500 MG/100 ML BAG IV SCH (09:30)
[2020-05-21] MEDS: PULMICORT NEB TX 0.5 MG NEB SCH ×2 (09:45→22:15)
[2020-05-21] MEDS: BROVANA IN SCH ×2 (09:55→22:10)
[2020-05-21] MEDS: LOVENOX INJ 40 MG SYR SC SCH (11:17)
[2020-05-21] MEDS: REMDESIVIR 100 MG in NS 250 ML IV 250 ML IV SCH (11:17)
[2020-05-21] MEDS: ZINC SULFATE PO SCH ×2 (11:18→21:36)
--- NOTE | 2020-05-21 12:02 | DR.H&P ---
H&P - History & Physical for Day of: H&P Date: 05/19/20 - Chief Complaint Chief Complaint: COUGH, SOB, FEVER, WEAKNESS - History of Present Illness History of Present Illness: IS A 80 YEAR OLD PATIENT OF OURS WHO PRESENTED TO THE ER WITH REPORTS OF INCREASED SHORTNESS OF BREATH, PRODUCTIVE COUGH, FEVER, CHILLS, AND WEAKNESS. SHE WAS RECENTLY HOSPITALIZED AT [facility] IN [place] ON 02/01/2020 DUE TO COPD, CHF, AND RESPIRATORY FAILURE. SHE PLACED ON THE MECHANICAL VENT WHILE THERE. SHE WAS ALSO HOSPITALIZED AT [facility] IN [place] TWO WEEKS AGO FOR RESPIRATORY FAILURE. SHE HAS BEEN TAKING PREDNISONE 10MG PO BID WITHOUT IMPROVEMENT IN SYMPTOMS. HER PMH INCLUDES ASTHMA, HYPOTHYROIDISM, HTN, CARDIAC STENT X 1, CHOLECYSTECTOMY, HYSTERECTOMY, AND HERNIA REPAIR. ON ARRIVAL TO THE ER, VITALS WERE 99.7-99-27-89%-140/65. OXYGEN VIA NASAL CANNULA WAS APPLIED AT 3LPM. HER SATURATIONS INCREASED TO 97%. LABS WERE OBTAINED. ABNORMAL LAB VALUES INCLUDE THE FOLLOWING: RBC 3.07, HGB 9.4, HCT 27.9, PLT COUNT 534, SODIUM 135, GLUCOSE 129, CALCIUM 8.0, CREATINE KINASE 13, ALBUMIN 3.0. AN ABG WAS OBTAINED AND REVEALED: PH 7.500, PC02 32, P02 66, HC03 25, 02 SAT 94, A-A GRADIENT 44, FI02 21.0. COVID-19 IS POSITIVE. BLOOD, STOOL, AND SPUTUM CULTURES WERE SET UP. AN EKG WAS OBTAINED AND REVEALED SINUS TACHYCARDIA WITH HR 100. A CHEST XRAY WAS OBTAINED AND REVEALED: Findings could represent acute cardiogenic edema; although an atypical/viral infectious process could also be considered. IN THE ER, SHE WAS GIVEN LEVAQUIN 500MG IV X 1 DOSE, LASIX 40MG IV X 1 DOSE, IVERMECTIN 15MG PO X 1 DOSE, REMDESIVIR 200MG IV X 1 DOSE. SHE WAS ADMITTED TO THE HOSPITAL FOR FURTHER EVALUATION AND TREATMENT OF PNEUMONIA DUE TO COVID-19, EARLY CONGESTIVE HEART FAILURE, DYSPNEA, AND HYPOXIA. SHE WAS STARTED ON NS AT [facility], REMDESIVIR 100MG IV DAILY, LEVAQUIN 500MG IV DAILY, FORTAZ 1G IV Q8H, ASCORBIC ACID 1500MG IV Q6H, PULMICORT NEB TX, ALBUTEROL NEB TX, BROVANA NEB TX, LIPITOR 80MG PO DAILY, TESSALON PERLES 200MG PO TID, ROBITUSSIN DM 10 ML PO QID, ZYRTEC 10MG PO DAILY, TUSSIONEX 5ML PO Q12H PRN, LOMOTIL 1 TAB PO QID PRN, LOVENOX 30MG SC BID, PEPCID 40MG PO BID, TRICOR 160MG PO DAILY, DIFLUCAN 100MG PO DAILY, IVERMECTIN, SYNTHROID 100MCG PO DAILY, MAGIC MOUTHWASH 5ML QID PRN, MELATONIN 10MG PO HS, SOLU-MEDROL 125MG IV Q6H, SINGULAIR 10MG PO HS, PROTONIX 40MG PO DAILY, THIAMINE 200MG IV BID, AND ZINC SULFATE 220MG PO BID. WE PLAN TO OBTAIN AN ECHO AND A CHEST CTA. OTHERWISE, WE WILL FOLLOW UP WITH AM LABS, CHEST XRAY, ABG, AND CONTINUE TO MONITOR. TIME SPENT ON CLINICAL ASSESSMENT, REVIEWING LABS AND IMAGING, DECISION MAKING, AND DOCUMENTATION GREATER THAN 75 MINUTES. - Past Medical History Past Medical History: Angina, Asthma, Hypertension, Hypothyroidism - Past Surgical History Surgical History: Cholecystectomy, Hysterectomy Additional Surgical History: CARDIAC STENT X 1 - Family History Family Medical History: Cancer, Coronary Artery Disease, Hypertension - Social History Alcohol Use: None Drug Use: None - Medications Home Medications: cefdinir Allergy (Mild, Verified 05/30/17 17:02) CONTINUE taking the following medications apixaban [Eliquis] 5 mg PO BID 05/20/20 [History] atorvastatin 40 mg PO DAILY 05/20/20 [History] donepezil 5 mg PO DAILY 05/20/20 [History] losartan 50 mg PO DAILY 05/20/20 [History] nifedipine 60 mg PO DAILY 05/20/20 [History] pantoprazole 40 mg PO DAILY 05/20/20 [History] prednisone 10 mg PO . DIRECTED 05/20/20 [History] sotalol 40 mg PO BID 05/20/20 [History] - Review of Systems Constitutional: Fever, Chills, Weakness Eyes: No Symptoms Reported ENT: No Symptoms Reported Respiratory: Cough, Shortness of Breath Cardiovascular: No Symptoms Reported Gastrointestinal: No Symptoms Reported Genitourinary: No Symptoms Reported Musculoskeletal: No Symptoms Reported Skin: No Symptoms Reported Neurological: Weakness - Physical Exam Vital Signs: Temperature 97.4 F Pulse Rate [Left] 70 Pulse Rate 75 Respiratory Rate 22 Blood Pressure [Left Arm] 117/56 Blood Pressure [Right Arm] 127/83 Blood Pressure 140/65 O2 Sat by Pulse Oximetry 93 Oriented: Normal Eyes: Normal Ear: Normal Nose: Normal Throat: Normal Respiratory: Rales Throughout Cardiovascular: Normal : Normal Auscultation: Bowel Sounds: Normal Palpation: Normal Tenderness: Normal Skin: Normal Musculoskeletal: Normal Psychiatric: Normal Mood Description: Calm Affect: Normal Speech Pattern: Clear - Assessment/Plan (1) Pneumonia due to 2019 novel coronavirus Status: Acute Plan: ADMIT, SUPPLEMENTAL OXYGEN, NS AT KVO, REMDESIVIR 100MG IV DAILY, LEVAQUIN 500MG IV DAILY, FORTAZ 1G IV Q8H, ASCORBIC ACID 1500MG IV Q6H, PULMICORT NEB TX, ALBUTEROL NEB TX, BROVANA NEB TX, LIPITOR 80MG PO DAILY, TESSALON PERLES 200MG PO TID, ROBITUSSIN DM 10 ML PO QID, ZYRTEC 10MG PO DAILY, TUSSIONEX 5ML PO Q12H PRN, LOMOTIL 1 TAB PO QID PRN, LOVENOX 30MG SC BID, PEPCID 40MG PO BID, TRICOR 160MG PO DAILY, DIFLUCAN 100MG PO DAILY, IVERMECTIN, SYNTHROID 100MCG PO DAILY, MAGIC MOUTHWASH 5ML QID PRN, MELATONIN 10MG PO HS, SOLU-MEDROL 125MG IV Q6H, SINGULAIR 10MG PO HS, PROTONIX 40MG PO DAILY, THIAMINE 200MG IV BID, AND ZINC SULFATE 220MG PO BID (2) Hypoxia Status: Acute (3) CHF (congestive heart failure) Qualifiers: Heart failure type: unspecified Heart failure chronicity: acute on chronic Qualified Code(s): I50.9 - Heart failure, unspecified Status: Acute (4) Dyspnea Qualifiers: Dyspnea type: shortness of breath Qualified Code(s): R06.02 - Shortness of breath Status: Acute - Allergies Allergies/Adverse Reactions: Allergies Allergy/AdvReac Type Severity Reaction Status Date / Time cefdinir Allergy Mild Verified 05/30/17 17:02
[2020-05-21] MEDS: SINGULAIR TAB 10 MG PO SCH (21:36)
[2020-05-21] MEDS: MELATONIN PO SCH (21:36)
[2020-05-22] MEDS: MUCOMYST 20% 200 MG/ML NEB SCH ×4 (00:15→16:59)
[2020-05-22] MEDS: ACCUNEB 1.25 MG NEBULE NEB SCH ×4 (00:15→16:59)
[2020-05-22] MEDS: SOLU-Medrol 125 MG VIAL IVP SCH ×4 (00:45→18:47)
[2020-05-22] MEDS: ASCORBIC ACID INJ MULTI-DOSE VIAL 1,500 MG in NS 100 ML IV 100 ML IV SCH ×4 (02:21→20:29)
[2020-05-22 04:48] LABS: ABG ALLEN TEST POSS; ABG BASE EXCESS 2.8 mmol/L (-2.0-2.0); ABG HCO3 27.2 mmol/L (22-26)
[2020-05-22] MEDS: FORTAZ or TAZICEF VIAL INJ 1 G in NS 100 ML IV + SPIKE MINIBAG* 100 ML IV SCH ×3 (05:19→22:07)
[2020-05-22] MEDS: TESSALON PERLES PO SCH ×3 (05:19→22:08)
[2020-05-22 06:29] LABS: BASOPHILS % (AUTO) 0.1 % (0.2-1.0); HEMATOCRIT 25.9 % (36.0-47.0); HEMOGLOBIN 8.8 g/dL (12.0-16.0); LYMPHOCYTES # (AUTO) 0.5 X10^3/uL (1.3-2.9); LYMPHOCYTES % (AUTO) 8.9 % (21.0-51.0); MEAN CORPUSCULAR HEMOGLOBIN 30.6 pg (27.0-34.0); MEAN CORPUSCULAR VOLUME 90.2 fL (80.0-100.0); MEAN PLATELET VOLUME 6.2 fL (7.4-11.0); MONOCYTES # (AUTO) 0.2 x10^3/uL (0.3-0.8); MONOCYTES % (AUTO) 3.1 % (0.0-13.0); NEUTROPHILS % (AUTO) 87.9 % (42.0-75.0); PLATELET COUNT 509 X10^3/uL (150.0-450.0); RED BLOOD COUNT 2.87 X10^6/uL (3.5-5.4); RED CELL DISTRIBUTION WIDTH 16.1 % (11.6-16.5); WHITE BLOOD COUNT 5.7 X10^3/uL (3.6-10.0)
[2020-05-22 06:32] LABS: ALANINE AMINOTRANSFERASE 14 Units/L (12-78); ALBUMIN 2.6 g/dL (3.4-5.0); ALKALINE PHOSPHATASE 88 Units/L (46-116); ASPARTATE AMINO TRANSFERASE 26 Units/L (15-37); BLOOD UREA NITROGEN 12 mg/dL (7-18); CALCIUM 7.5 mg/dL (8.5-10.1); CARBON DIOXIDE 25.8 mmol/L (21-32); CHLORIDE 105 mmol/L (98-107); COR CA(FOR HYPOALB) 8.6 mg/dL (8.5-10.1); COR NA(FOR HYPERGLY) 143 mmol/L (136-145); CREATININE 0.94 mg/dL (0.55-1.02); SODIUM 142 mmol/L (136-145); TOTAL PROTEIN 5.9 g/dL (6.4-8.2); eGFR NON BLACK RACES > 60 (>60)
--- NOTE | 2020-05-22 07:52 | RAD ---
HISTORYSOBSTUDYCHEST, 1 VIEWCOMPARISONPortable chest May 21, 2020.FINDINGSThe trachea is midline. The cardiac silhouette is mildly enlarged but stable.. The bilateral right greater than left peripheral infiltrates are stable compared to yesterday's exam. There is no effusion or pneumothorax.. The bony thorax is unremarkable.IMPRESSIONStable cardiomegaly and bilateral right greater than left infiltrates without change from yesterday's exam.Electronically signed by: GURDEEP OH (May 22, 2020 07:50:42)
[2020-05-22] MEDS ORDERED: POTASSIUM CHLORIDE LIQ 20 MEQ UDC PO PRN (07:58)
[2020-05-22] MEDS ORDERED: MICRO K EXTEN CAP 10 MEQ PO PRN (07:58)
[2020-05-22] MEDS ORDERED: POTASSIUM CHL 60 MEQ/NS 0.45% 500 ML IV PRN (07:58)
[2020-05-22] MEDS ORDERED: POTASSIUM CHL 40 MEQ/NS 0.45% 500 ML IV PRN (07:58)
[2020-05-22] MEDS ORDERED: MAGNESIUM SULFATE 1 GRAM/100 mL PREMIX 1 GM/100 ML BAG IV PRN (07:58)
[2020-05-22] MEDS ORDERED: K-RIDER 10 MEQ/NS 100 ML 10 MEQ/100 ML BAG IV PRN (07:58)
[2020-05-22] MEDS: BROVANA IN SCH ×2 (09:00→20:00)
[2020-05-22] MEDS: PULMICORT NEB TX 0.5 MG NEB SCH ×2 (09:00→20:05)
[2020-05-22] MEDS ORDERED: NS 100 ML IV 100 ML IV ONE (10:13)
[2020-05-22] MEDS: LEVAQUIN PREMIX IV 500 MG 500 MG/100 ML BAG IV SCH (10:21)
[2020-05-22] MEDS: REMDESIVIR 100 MG in NS 250 ML IV 250 ML IV SCH (10:21)
[2020-05-22] MEDS: SYNTHROID 100 mcg TAB PO SCH (10:22)
[2020-05-22] MEDS: DIFLUCAN PO SCH (10:22)
[2020-05-22] MEDS: VITAMIN D3 125 mcg (5,000 UNITS) PO SCH (10:22)
[2020-05-22] MEDS: PEPCID TAB 40 MG PO SCH ×2 (10:22→20:28)
[2020-05-22] MEDS: LIPITOR TAB 80 MG PO SCH (10:23)
[2020-05-22] MEDS: ZINC SULFATE PO SCH ×2 (10:23→20:28)
[2020-05-22] MEDS: ZyrTEC TAB 10 MG PO SCH (10:23)
[2020-05-22] MEDS: TRICOR TAB 160 MG PO SCH (10:23)
[2020-05-22] MEDS: THIAMINE HCL INJ IVP SCH ×2 (10:24→20:28)
[2020-05-22] MEDS: LOVENOX INJ 40 MG SYR SC SCH (10:24)
[2020-05-22] MEDS: ROBITUSSIN DM PO SCH ×4 (10:24→20:28)
[2020-05-22] MEDS: PROTONIX TAB 40 MG PO SCH (10:24)
[2020-05-22] MEDS: K-DUR TAB 20 MEQ PO PRN (10:28)
--- NOTE | 2020-05-22 11:37 | PCM.PROG ---
Progress Note - Progress Note for Day of Date of Exam: 05/20/20 - Subjective Subjective: IS BEING TREATED FOR PNEUMONIA DUE TO COVID-19, HYPOXIA, CHF, AND DYSPNEA. TODAY, SHE IS ALERT AND ORIENTED, LYING IN BED ON MORNING ROUNDS. SHE CONTINUES WITH A NON-PRODUCTIVE COUGH, SHORTNESS OF BREATH, AND WEAKNESS THIS MORNING. SHE IS CURRENTLY UTILIZING OXYGEN VIA NASAL CANNULA AT 2- 3 LITERS PER MINUTE. HER SATURATIONS HAVE BEEN 92-98% THIS MORNING AND THROUGHOUT THE NIGHT. ON EXAMINATION, HEART IS REGULAR IN RATE AND RHYTHM. BILATERAL LUNGS ARE NOTED WITH RALES THROUGHOUT. ABDOMEN IS ROUND, SOFT, AND NON-TENDER WITH NORMAL BOWEL SOUNDS NOTED IN ALL QUADRANTS. HER VITALS THIS MORNING ARE: 97.5-71-24-93%NC-114/56. A CHEST XRAY WAS OBTAINED AND REVEALED: Unchanged cardiomegaly with bilateral patchy pneumonia. A CHEST CTA WAS OBTAINED AND REVEALED: 1. No pulmonary emboli 2. Bronchopneumonia typical for COVID-19 3. Cardiomegaly with CAD. AN ECHO WAS OBTAINED AND REVEALED AN EJECTION FRACTION OF 63%, MODERATE AORTIC VALVE LEAFLET THICKENING WITH MODERATE CALCIFICATION. SHE IS CURRENTLY RECEIVING NS AT [facility], REMDESIVIR 100MG IV DAILY, LEVAQUIN 500MG IV DAILY, FORTAZ 1G IV Q8H, ASCORBIC ACID 1500MG IV Q6H, PULMICORT NEB TX, ALBUTEROL NEB TX, BROVANA NEB TX, LIPITOR 80MG PO DAILY, TESSALON PERLES 200MG PO TID, ROBITUSSIN DM 10 ML PO QID, ZYRTEC 10MG PO DAILY, TUSSIONEX 5ML PO Q12H PRN, LOMOTIL 1 TAB PO QID PRN, LOVENOX 30MG SC BID, PEPCID 40MG PO BID, TRICOR 160MG PO DAILY, DIFLUCAN 100MG PO DAILY, IVERMECTIN, SYNTHROID 100MCG PO DAILY, MAGIC MOUTHWASH 5ML QID PRN, MELATONIN 10MG PO HS, SOLU-MEDROL 125MG IV Q6H, SINGULAIR 10MG PO HS, PROTONIX 40MG PO DAILY, THIAMINE 200MG IV BID, AND ZINC SULFATE 220MG PO BID. WE WILL CONTINUE WITH CURRENT PLAN OF CARE TODAY. OTHERWISE, WE PLAN TO FOLLOW UP WITH AM LABS, CHEST XRAY, ABG, AND CONTINUE TO MONITOR. TIME SPENT ON CLINICAL ASSESSMENT, REVIEWING LABS AND IMAGING, DECISION MAKING, AND DOCUMENTATION GREATER THAN 75 MINUTES. - Past Medical Family Social History Past Med/Fam/Surg Hx: No changes since H&P Allergies: Allergies cefdinir Allergy (Mild, Verified 05/30/17 17:02) patient states it makes her itch all over and grabs at her hands. - Review of Systems ROS: No change since H&P - Vital Signs and I&O's Vital Signs: Temperature 98.1 F Pulse Rate [Left] 76 Pulse Rate 77 Respiratory Rate 22 Blood Pressure [Left Arm] 148/68 Blood Pressure [Right Arm] 127/83 Blood Pressure 140/65 O2 Sat by Pulse Oximetry 93 Intake and Output: Intake & Output 05/19/20 05/20/20 05/21/20 05/22/20 11:59 11:59 11:59 11:59 Intake Total 575 / 575 2294 / 2294 2179 / 2179 Output Total 100 / 100 Balance 475 / 475 2294 / 2294 2179 / 2179 - Physical Exam Oriented: Normal Eyes: Normal Ear: Normal Nose: Normal Throat: Normal Respiratory: Generalized, Diminished, Rales Cardiovascular: Normal : Normal Auscultation: Bowel Sounds: Normal Palpation: Normal Tenderness: Normal Skin: Normal Musculoskeletal: Normal Psychiatric: Normal Mood Description: Calm Affect: Normal Speech Pattern: Clear, Appropriate - Laboratory and Diagnostics Result Diagrams: 05/22/20 05:55 05/22/20 05:55 Labs: 05/20/20 18:02 Sputum - Expectorated Sputum Sputum Culture - Final 05/20/20 18:02 Sputum - Expectorated Sputum - Final 05/20/20 13:34 Stool Stool Culture - Final 05/20/20 13:34 Stool - Final 05/19/20 17:17 Blood Blood Culture - Preliminary 05/19/20 17:03 Blood Blood Culture - Preliminary Laboratory WBC 5.7 X10^3/uL (3.6-10.0) 05/22/20 05:55 RBC 2.87 X10^6/uL (3.5-5.4) L 05/22/20 05:55 Hgb 8.8 g/dL (12.0-16.0) L 05/22/20 05:55 Hct 25.9 % (36.0-47.0) L 05/22/20 05:55 MCV 90.2 fL (80.0-100.0) 05/22/20 05:55 MCH 30.6 pg (27.0-34.0) 05/22/20 05:55 MCHC 34.0 g/dL (33.0-35.0) 05/22/20 05:55 RDW 16.1 % (11.6-16.5) 05/22/20 05:55 Plt Count 509 X10^3/uL (150.0-450.0) H 05/22/20 05:55 Plt Count Comment Increased (ADEQUATE) A 05/19/20 17:17 MPV 6.2 fL (7.4-11.0) L 05/22/20 05:55 Neut % (Auto) 87.9 % (42.0-75.0) H 05/22/20 05:55 Lymph % (Auto) 8.9 % (21.0-51.0) L 05/22/20 05:55 [place] % (Auto) 3.1 % (0.0-13.0) 05/22/20 05:55 Eos % (Auto) 0.0 % (0.9-2.9) L 05/22/20 05:55 Baso % (Auto) 0.1 % (0.2-1.0) L 05/22/20 05:55 Neut # (Auto) 5.0 x10^3/uL (2.2-4.8) H 05/22/20 05:55 Lymph # (Auto) 0.5 X10^3/uL (1.3-2.9) L 05/22/20 05:55 [place] # (Auto) 0.2 x10^3/uL (0.3-0.8) L 05/22/20 05:55 Eos # (Auto) 0.0 x10^3/uL (0.0-0.2) 05/22/20 05:55 Baso # (Auto) 0.0 X10^3/uL (0.0-0.1) 05/22/20 05:55 Absolute Nucleated RBC 0.1 /100WBC 05/22/20 05:55 Total Counted 100 05/19/20 17:17 Neutrophils % (Manual) 84 % (39-76) H 05/19/20 17:17 Band Neutrophils % 8 % (0-10) 05/19/20 17:17 Lymphocytes % (Manual) 8 % (13-43) L 05/19/20 17:17 Plt Morphology Comment Normal (NORMAL) 05/19/20 17:17 RBC Morphology Normal (NORMAL) 05/19/20 17:17 D-Dimer 0.38 ug/ml (0.0-0.57) 05/22/20 05:55 Sample Site R rad 05/22/20 04:40 ABG pH 7.440 (7.35-7.45) 05/22/20 04:40 ABG pCO2 40.0 mmHg (35.0-45.0) 05/22/20 04:40 ABG pO2 52.0 mmHg (80.0-100.0) L 05/22/20 04:40 ABG HCO3 27.2 mmol/L (22-26) H 05/22/20 04:40 ABG O2 Saturation 88.0 % (90-100) L 05/22/20 04:40 ABG Base Excess 2.8 mmol/L (-2.0-2.0) H 05/22/20 04:40 Toro Test Poss 05/22/20 04:40 A-a Gradient 183.0 mmHg 05/22/20 04:40 FiO2 40.0 05/22/20 04:40 Blood Gas Comments Thomas well kb 05/22/20 04:40 Sodium 142 mmol/L (136-145) 05/22/20 05:55 Corrected Sodium 143 mmol/L (136-145) 05/22/20 05:55 Potassium 3.2 mmol/L (3.5-5.1) L 05/22/20 05:55 Chloride 105 mmol/L (98-107) 05/22/20 05:55 Carbon Dioxide 25.8 mmol/L (21-32) 05/22/20 05:55 BUN 12 mg/dL (7-18) 05/22/20 05:55 Creatinine 0.94 mg/dL (0.55-1.02) 05/22/20 05:55 Est GFR (MDRD) Af Amer > 60 (>60) 05/22/20 05:55 Est GFR (MDRD) Non-Af > 60 (>60) 05/22/20 05:55 Glucose 147 mg/dL (65-99) H 05/22/20 05:55 POC Glucose (mg/dL) 105 mg/dL (65-99) H 05/21/20 11:22 Lactic Acid 0.8 mmol/L (0.4-2.0) 05/19/20 17:17 Calcium 7.5 mg/dL (8.5-10.1) L 05/22/20 05:55 Corrected Calcium 8.6 mg/dL (8.5-10.1) 05/22/20 05:55 Magnesium 1.9 mg/dL (1.7-2.9) 05/22/20 05:55 Ferritin 278 ng/mL (8-252) H 05/22/20 05:55 Total Bilirubin 0.20 mg/dL (0.2-1.0) 05/22/20 05:55 AST 26 Units/L (15-37) 05/22/20 05:55 ALT 14 Units/L (12-78) 05/22/20 05:55 Alkaline Phosphatase 88 Units/L (46-116) 05/22/20 05:55 Creatine Kinase 13 Units/L (26-192) L 05/19/20 17:17 CK-MB (CK-2) < 1.0 ng/mL (0-4.0) 05/19/20 17:17 CK/CKMB % Calc 7.7 % (<4) 05/19/20 17:17 Troponin I < 0.02 ng/mL (0-1.5) 05/19/20 22:37 C-Reactive Protein 7.50 mg/L (0-3.0) H 05/22/20 05:55 B-Natriuretic Peptide 108 pg/mL (0-79) H 05/22/20 05:55 Total Protein 5.9 g/dL (6.4-8.2) L 05/22/20 05:55 Albumin 2.6 g/dL (3.4-5.0) L 05/22/20 05:55 Globulin 3.3 g/dL (2.5-4.5) 05/22/20 05:55 Albumin/Globulin Ratio 0.8 Ratio (1.1-2.1) L 05/22/20 05:55 Stool Description 25 grms loose yellow 05/20/20 13:34 Stool Description 25 grms loose yellow 05/20/20 13:34 Stl Occult Blood (IFOB) Negative (NEGATIVE) 05/20/20 13:34 Stool for White Cells Negative (NEGATIVE) 05/20/20 13:34 Stl C. diff Tox B Gene Negative (NEGATIVE) 05/20/20 13:34 Stl C. diff [id number] Negative (NEGATIVE) 05/20/20 13:34 SARS-CoV-2 (PCR) Positive (NEGATIVE) A 05/19/20 17:40 Cryptosporid parvum Ag Negative (NEGATIVE) 05/20/20 13:34 Giardia lamblia Ag Negative (NEGATIVE) 05/20/20 13:34 Influenza Type A (PCR) Negative (NEGATIVE) 05/19/20 17:40 Influenza Type B (PCR) Negative (NEGATIVE) 05/19/20 17:40 RSV (PCR) Negative (NEGATIVE) 05/19/20 17:40 Blood Type A POSITIVE 05/20/20 11:28 - Plan (1) Pneumonia due to 2019 novel coronavirus Status: Acute Plan: SUPPLEMENTAL OXYGEN, NS AT [facility], REMDESIVIR 100MG IV DAILY, LEVAQUIN 500MG IV DAILY, FORTAZ 1G IV Q8H, ASCORBIC ACID 1500MG IV Q6H, PULMICORT NEB TX, ALBUTEROL NEB TX, BROVANA NEB TX, LIPITOR 80MG PO DAILY, TESSALON PERLES 200MG PO TID, ROBITUSSIN DM 10 ML PO QID, ZYRTEC 10MG PO DAILY, TUSSIONEX 5ML PO Q12H PRN, LOMOTIL 1 TAB PO QID PRN, LOVENOX 30MG SC BID, PEPCID 40MG PO BID, TRICOR 160MG PO DAILY, DIFLUCAN 100MG PO DAILY, IVERMECTIN, SYNTHROID 100MCG PO DAILY, MAGIC MOUTHWASH 5ML QID PRN, MELATONIN 10MG PO HS, SOLU-MEDROL 125MG IV Q6H, SINGULAIR 10MG PO HS, PROTONIX 40MG PO DAILY, THIAMINE 200MG IV BID, AND ZINC SULFATE 220MG PO BID (2) Hypoxia Status: Acute (3) CHF (congestive heart failure) Status: Acute Qualifiers: Heart failure type: unspecified Heart failure chronicity: acute on chronic Qualified Code(s): I50.9 - Heart failure, unspecified (4) Dyspnea Status: Acute Qualifiers: Dyspnea type: shortness of breath Qualified Code(s): R06.02 - Shortness of breath
--- NOTE | 2020-05-22 11:44 | PCM.PROG ---
Progress Note - Progress Note for Day of Date of Exam: 05/21/20 - Subjective Subjective: IS BEING TREATED FOR PNEUMONIA DUE TO COVID-19, HYPOXIA, CHF, AND DYSPNEA. TODAY, SHE IS ALERT AND ORIENTED, LYING IN BED ON MORNING ROUNDS. SHE CONTINUES WITH A NON-PRODUCTIVE COUGH, SHORTNESS OF BREATH, AND WEAKNESS THIS MORNING, BUT DOES REPORTS SLIGHT IMPROVEMENT IN SYMPTOMS SINCE YESTERDAY. SHE IS CURRENTLY UTILIZING OXYGEN VIA NASAL CANNULA AT 2-3 LITERS PER MINUTE. HER SATURATIONS HAVE BEEN 90-95% THIS MORNING AND THROUGHOUT THE NIGHT. ON EXAMINATION, HEART IS REGULAR IN RATE AND RHYTHM. BILATERAL LUNGS ARE NOTED WITH RALES THROUGHOUT. ABDOMEN IS ROUND, SOFT, AND NON-TENDER WITH NORMAL BOWEL SOUNDS NOTED IN ALL QUADRANTS. HER VITALS THIS MORNING ARE: 97.4-70-22-90%-11 . LABS WERE OBTAINED. ABNORMAL LAB VALUES INCLUDE THE FOLLOWING: RBC 2.78, HGB 8.6, HCT 24.7, PLT COUNT 477, GLUCOSE 135, CALCIUM 7.6, CRP 22.30, TOTAL PROTEIN 5.9, ALBUMIN 2.6. AN ABG WAS OBTAINED AND REVEALED: PH 7.450, PC02 39, P02 62, HC03 27.1, 02 SAT 92, BASE EXCESS 3.0, A-A GRADIENT 89, FI02 28. BLOOD, STOOL, AND SPUTUM CULTURES ARE PENDING. A CHEST XRAY WAS OBTAINED AND REVEALED: Stable cardiomegaly and bilateral infiltrates consistent with bronchopneumonia are stable compared to yesterday's chest film and CT scan. SHE IS CURRENTLY RECEIVING NS AT [facility], REMDESIVIR 100MG IV DAILY, LEVAQUIN 500MG IV DAILY, FORTAZ 1G IV Q8H, ASCORBIC ACID 1500MG IV Q6H, PULMICORT NEB TX, ALBUTEROL NEB TX, BROVANA NEB TX, LIPITOR 80MG PO DAILY, TESSALON PERLES 200MG PO TID, ROBITUSSIN DM 10 ML PO QID, ZYRTEC 10MG PO DAILY, TUSSIONEX 5ML PO Q12H PRN, LOMOTIL 1 TAB PO QID PRN, LOVENOX 30MG SC BID, PEPCID 40MG PO BID, TRICOR 160MG PO DAILY, DIFLUCAN 100MG PO DAILY, IVERMECTIN, SYNTHROID 100MCG PO DAILY, MAGIC MOUTHWASH 5ML QID PRN, MELATONIN 10MG PO HS, SOLU-MEDROL 125MG IV Q6H, SINGULAIR 10MG PO HS, PROTONIX 40MG PO DAILY, THIAMINE 200MG IV BID, AND ZINC SULFATE 220MG PO BID. WE WILL CONTINUE WITH CURRENT PLAN OF CARE TODAY. OTHERWISE, WE PLAN TO FOLLOW UP WITH AM LABS, CHEST XRAY, ABG, AND CONTINUE TO MONITOR. TIME SPENT ON CLINICAL ASSESSMENT, REVIEWING LABS AND IMAGING, DECISION MAKING, AND DOCUMENTATION GREATER THAN 75 MINUTES. - Past Medical Family Social History Past Med/Fam/Surg Hx: No changes since H&P Allergies: Allergies cefdinir Allergy (Mild, Verified 05/30/17 17:02) patient states it makes her itch all over and grabs at her hands. - Review of Systems ROS: No change since H&P - Vital Signs and I&O's Vital Signs: Temperature 98.1 F Pulse Rate [Left] 76 Pulse Rate 77 Respiratory Rate 22 Blood Pressure [Left Arm] 148/68 Blood Pressure [Right Arm] 127/83 Blood Pressure 140/65 O2 Sat by Pulse Oximetry 93 Intake and Output: Intake & Output 05/19/20 05/20/20 05/21/20 05/22/20 11:59 11:59 11:59 11:59 Intake Total 575 / 575 2294 / 2294 2179 / 2179 Output Total 100 / 100 Balance 475 / 475 2294 / 2294 2179 / 2179 - Physical Exam Oriented: Normal Eyes: Normal Ear: Normal Nose: Normal Throat: Normal Respiratory: Generalized, Diminished, Rales Cardiovascular: Normal : Normal Auscultation: Bowel Sounds: Normal Palpation: Normal Tenderness: Normal Skin: Normal Musculoskeletal: Normal Psychiatric: Normal Mood Description: Calm Affect: Normal Speech Pattern: Clear, Appropriate - Laboratory and Diagnostics Result Diagrams: 05/22/20 05:55 05/22/20 05:55 Labs: 05/20/20 18:02 Sputum - Expectorated Sputum Sputum Culture - Final 05/20/20 18:02 Sputum - Expectorated Sputum - Final 05/20/20 13:34 Stool Stool Culture - Final 05/20/20 13:34 Stool - Final 05/19/20 17:17 Blood Blood Culture - Preliminary 05/19/20 17:03 Blood Blood Culture - Preliminary Laboratory WBC 5.7 X10^3/uL (3.6-10.0) 05/22/20 05:55 RBC 2.87 X10^6/uL (3.5-5.4) L 05/22/20 05:55 Hgb 8.8 g/dL (12.0-16.0) L 05/22/20 05:55 Hct 25.9 % (36.0-47.0) L 05/22/20 05:55 MCV 90.2 fL (80.0-100.0) 05/22/20 05:55 MCH 30.6 pg (27.0-34.0) 05/22/20 05:55 MCHC 34.0 g/dL (33.0-35.0) 05/22/20 05:55 RDW 16.1 % (11.6-16.5) 05/22/20 05:55 Plt Count 509 X10^3/uL (150.0-450.0) H 05/22/20 05:55 Plt Count Comment Increased (ADEQUATE) A 05/19/20 17:17 MPV 6.2 fL (7.4-11.0) L 05/22/20 05:55 Neut % (Auto) 87.9 % (42.0-75.0) H 05/22/20 05:55 Lymph % (Auto) 8.9 % (21.0-51.0) L 05/22/20 05:55 [place] % (Auto) 3.1 % (0.0-13.0) 05/22/20 05:55 Eos % (Auto) 0.0 % (0.9-2.9) L 05/22/20 05:55 Baso % (Auto) 0.1 % (0.2-1.0) L 05/22/20 05:55 Neut # (Auto) 5.0 x10^3/uL (2.2-4.8) H 05/22/20 05:55 Lymph # (Auto) 0.5 X10^3/uL (1.3-2.9) L 05/22/20 05:55 [place] # (Auto) 0.2 x10^3/uL (0.3-0.8) L 05/22/20 05:55 Eos # (Auto) 0.0 x10^3/uL (0.0-0.2) 05/22/20 05:55 Baso # (Auto) 0.0 X10^3/uL (0.0-0.1) 05/22/20 05:55 Absolute Nucleated RBC 0.1 /100WBC 05/22/20 05:55 Total Counted 100 05/19/20 17:17 Neutrophils % (Manual) 84 % (39-76) H 05/19/20 17:17 Band Neutrophils % 8 % (0-10) 05/19/20 17:17 Lymphocytes % (Manual) 8 % (13-43) L 05/19/20 17:17 Plt Morphology Comment Normal (NORMAL) 05/19/20 17:17 RBC Morphology Normal (NORMAL) 05/19/20 17:17 D-Dimer 0.38 ug/ml (0.0-0.57) 05/22/20 05:55 Sample Site R rad 05/22/20 04:40 ABG pH 7.440 (7.35-7.45) 05/22/20 04:40 ABG pCO2 40.0 mmHg (35.0-45.0) 05/22/20 04:40 ABG pO2 52.0 mmHg (80.0-100.0) L 05/22/20 04:40 ABG HCO3 27.2 mmol/L (22-26) H 05/22/20 04:40 ABG O2 Saturation 88.0 % (90-100) L 05/22/20 04:40 ABG Base Excess 2.8 mmol/L (-2.0-2.0) H 05/22/20 04:40 Toro Test Poss 05/22/20 04:40 A-a Gradient 183.0 mmHg 05/22/20 04:40 FiO2 40.0 05/22/20 04:40 Blood Gas Comments Thomas well kb 05/22/20 04:40 Sodium 142 mmol/L (136-145) 05/22/20 05:55 Corrected Sodium 143 mmol/L (136-145) 05/22/20 05:55 Potassium 3.2 mmol/L (3.5-5.1) L 05/22/20 05:55 Chloride 105 mmol/L (98-107) 05/22/20 05:55 Carbon Dioxide 25.8 mmol/L (21-32) 05/22/20 05:55 BUN 12 mg/dL (7-18) 05/22/20 05:55 Creatinine 0.94 mg/dL (0.55-1.02) 05/22/20 05:55 Est GFR (MDRD) Af Amer > 60 (>60) 05/22/20 05:55 Est GFR (MDRD) Non-Af > 60 (>60) 05/22/20 05:55 Glucose 147 mg/dL (65-99) H 05/22/20 05:55 POC Glucose (mg/dL) 105 mg/dL (65-99) H 05/21/20 11:22 Lactic Acid 0.8 mmol/L (0.4-2.0) 05/19/20 17:17 Calcium 7.5 mg/dL (8.5-10.1) L 05/22/20 05:55 Corrected Calcium 8.6 mg/dL (8.5-10.1) 05/22/20 05:55 Magnesium 1.9 mg/dL (1.7-2.9) 05/22/20 05:55 Ferritin 278 ng/mL (8-252) H 05/22/20 05:55 Total Bilirubin 0.20 mg/dL (0.2-1.0) 05/22/20 05:55 AST 26 Units/L (15-37) 05/22/20 05:55 ALT 14 Units/L (12-78) 05/22/20 05:55 Alkaline Phosphatase 88 Units/L (46-116) 05/22/20 05:55 Creatine Kinase 13 Units/L (26-192) L 05/19/20 17:17 CK-MB (CK-2) < 1.0 ng/mL (0-4.0) 05/19/20 17:17 CK/CKMB % Calc 7.7 % (<4) 05/19/20 17:17 Troponin I < 0.02 ng/mL (0-1.5) 05/19/20 22:37 C-Reactive Protein 7.50 mg/L (0-3.0) H 05/22/20 05:55 B-Natriuretic Peptide 108 pg/mL (0-79) H 05/22/20 05:55 Total Protein 5.9 g/dL (6.4-8.2) L 05/22/20 05:55 Albumin 2.6 g/dL (3.4-5.0) L 05/22/20 05:55 Globulin 3.3 g/dL (2.5-4.5) 05/22/20 05:55 Albumin/Globulin Ratio 0.8 Ratio (1.1-2.1) L 05/22/20 05:55 Stool Description 25 grms loose yellow 05/20/20 13:34 Stool Description 25 grms loose yellow 05/20/20 13:34 Stl Occult Blood (IFOB) Negative (NEGATIVE) 05/20/20 13:34 Stool for White Cells Negative (NEGATIVE) 05/20/20 13:34 Stl C. diff Tox B Gene Negative (NEGATIVE) 05/20/20 13:34 Stl C. diff [id number] Negative (NEGATIVE) 05/20/20 13:34 SARS-CoV-2 (PCR) Positive (NEGATIVE) A 05/19/20 17:40 Cryptosporid parvum Ag Negative (NEGATIVE) 05/20/20 13:34 Giardia lamblia Ag Negative (NEGATIVE) 05/20/20 13:34 Influenza Type A (PCR) Negative (NEGATIVE) 05/19/20 17:40 Influenza Type B (PCR) Negative (NEGATIVE) 05/19/20 17:40 RSV (PCR) Negative (NEGATIVE) 05/19/20 17:40 Blood Type A POSITIVE 05/20/20 11:28 - Plan (1) Pneumonia due to 2019 novel coronavirus Status: Acute Plan: SUPPLEMENTAL OXYGEN, NS AT KVO, REMDESIVIR 100MG IV DAILY, LEVAQUIN 500MG IV DAILY, FORTAZ 1G IV Q8H, ASCORBIC ACID 1500MG IV Q6H, PULMICORT NEB TX, ALBUTEROL NEB TX, BROVANA NEB TX, LIPITOR 80MG PO DAILY, TESSALON PERLES 200MG PO TID, ROBITUSSIN DM 10 ML PO QID, ZYRTEC 10MG PO DAILY, TUSSIONEX 5ML PO Q12H PRN, LOMOTIL 1 TAB PO QID PRN, LOVENOX 30MG SC BID, PEPCID 40MG PO BID, TRICOR 1 60MG PO DAILY, DIFLUCAN 100MG PO DAILY, IVERMECTIN, SYNTHROID 100MCG PO DAILY, MAGIC MOUTHWASH 5ML QID PRN, MELATONIN 10MG PO HS, SOLU-MEDROL 125MG IV Q6H, SINGULAIR 10MG PO HS, PROTONIX 40MG PO DAILY, THIAMINE 200MG IV BID, AND ZINC SULFATE 220MG PO BID (2) Hypoxia Status: Acute (3) CHF (congestive heart failure) Status: Acute Qualifiers: Heart failure type: unspecified Heart failure chronicity: acute on chronic Qualified Code(s): I50.9 - Heart failure, unspecified (4) Dyspnea Status: Acute Qualifiers: Dyspnea type: shortness of breath Qualified Code(s): R06.02 - Shortness of breath
--- NOTE | 2020-05-22 11:54 | PCM.PROG ---
Progress Note - Progress Note for Day of Date of Exam: 05/22/20 - Subjective Subjective: IS BEING TREATED FOR PNEUMONIA DUE TO COVID-19, HYPOXIA, CHF, AND DYSPNEA. TODAY, SHE IS ALERT AND ORIENTED, LYING IN BED ON MORNING ROUNDS. SHE CONTINUES WITH A NON-PRODUCTIVE COUGH, SHORTNESS OF BREATH, AND WEAKNESS THIS MORNING. SHE REPORTS A SLIGHT INCREASE IN SHORTNESS OF BREATH TODAY. SHE DID HAVE AN EPISODE OF HYPOXEMIA YESTERDAY AND HER OXYGEN HAD TO BE INCREASED TO 6 LPM. SHE IS CURRENTLY UTILIZING OXYGEN VIA NASAL CANNULA AT 6 LITERS PER MINUTE. HER SATURATIONS HAVE BEEN 86-94% THIS MORNING AND THROUGHOUT THE NIGHT. ON EXAMINATION, HEART IS REGULAR IN RATE AND RHYTHM. BILATERAL LUNGS ARE NOTED WITH RALES THROUGHOUT. ABDOMEN IS ROUND, SOFT, AND NON-TENDER WITH NORMAL BOWEL SOUNDS NOTED IN ALL QUADRANTS. HER VITALS THIS MORNING ARE: 98.1-76-22-94%-148/65. LABS WERE OBTAINED. ABNORMAL LAB VALUES INCLUDE THE FOLLOWING: RBC RBC 2.87, HGB 8.8, HCT 25.9, PLT COUNT 509, POTASSIUM 3.2, GLUCOSE 147, CALCIUM 7.5, FERRITIN 278, CRP 7.50, BNP 108, TOTAL PROTEIN 5.9, ALBUMIN 2.6. AN ABG WAS OBTAINED AND REVEALED: PH 7.440, PC02 40, P02 52, HC03 27.2, 02 SAT 88, BASE EXCESS 2.8, FI02 40. BLOOD, STOOL, AND SPUTUM CULTURES ARE PENDING. A CHEST XRAY WAS OBTAINED AND REVEALED: Stable cardiomegaly and bilateral right greater than left infiltrates without change from yesterday's exam. SHE IS CURRENTLY RECEIVING NS AT [facility], REMDESIVIR 100MG IV DAILY, LEVAQUIN 500MG IV DAILY, FORTAZ 1G IV Q8H, ASCORBIC ACID 1500MG IV Q6H, PULMICORT NEB TX, ALBUTEROL NEB TX, BROVANA NEB TX, LIPITOR 80MG PO DAILY, TESSALON PERLES 200MG PO TID, ROBITUSSIN DM 10 ML PO QID, ZYRTEC 10MG PO DAILY, TUSSIONEX 5ML PO Q12H PRN, LOMOTIL 1 TAB PO QID PRN, LOVENOX 30MG SC BID, PEPCID 40MG PO BID, TRICOR 160MG PO DAILY, DIFLUCAN 100MG PO DAILY, IVERMECTIN, SYNTHROID 100MCG PO DAILY, MAGIC MOUTHWASH 5ML QID PRN, MELATONIN 10MG PO HS, SOLU-MEDROL 125MG IV Q6H, SINGULAIR 10MG PO HS, PROTONIX 40MG PO DAILY, THIAMINE 200MG IV BID, AND ZINC SULFATE 220MG PO BID. WE WILL CONTINUE WITH CURRENT PLAN OF CARE TODAY. OTHERWISE, WE PLAN TO FOLLOW UP WITH AM LABS, CHEST XRAY, ABG, AND CONTINUE TO MONITOR. TIME SPENT ON CLINICAL ASSESSMENT, REVIEWING LABS AND IMAGING, DECISION MAKING, AND DOCUMENTATION GREATER THAN 75 MINUTES. - Past Medical Family Social History Past Med/Fam/Surg Hx: No changes since H&P Allergies: Allergies cefdinir Allergy (Mild, Verified 05/30/17 17:02) patient states it makes her itch all over and grabs at her hands. - Review of Systems ROS: No change since H&P - Vital Signs and I&O's Vital Signs: Temperature 98.1 F Pulse Rate [Left] 76 Pulse Rate 77 Respiratory Rate 22 Blood Pressure [Left Arm] 148/68 Blood Pressure [Right Arm] 127/83 Blood Pressure 140/65 O2 Sat by Pulse Oximetry 93 Intake and Output: Intake & Output 05/19/20 05/20/20 05/21/20 05/22/20 11:59 11:59 11:59 11:59 Intake Total 575 / 575 2294 / 2294 2179 / 2179 Output Total 100 / 100 Balance 475 / 475 2294 / 2294 2179 / 2179 - Physical Exam Oriented: Normal Eyes: Normal Ear: Normal Nose: Normal Throat: Normal Respiratory: Generalized, Diminished, Rales Cardiovascular: Normal : Normal Auscultation: Bowel Sounds: Normal Tenderness: Normal Skin: Normal Musculoskeletal: Normal Psychiatric: Normal Mood Description: Calm Affect: Normal Speech Pattern: Clear, Appropriate - Laboratory and Diagnostics Result Diagrams: 05/22/20 05:55 05/22/20 05:55 Labs: 05/20/20 18:02 Sputum - Expectorated Sputum Sputum Culture - Final 05/20/20 18:02 Sputum - Expectorated Sputum - Final 05/20/20 13:34 Stool Stool Culture - Final 05/20/20 13:34 Stool - Final 05/19/20 17:17 Blood Blood Culture - Preliminary 05/19/20 17:03 Blood Blood Culture - Preliminary Laboratory WBC 5.7 X10^3/uL (3.6-10.0) 05/22/20 05:55 RBC 2.87 X10^6/uL (3.5-5.4) L 05/22/20 05:55 Hgb 8.8 g/dL (12.0-16.0) L 05/22/20 05:55 Hct 25.9 % (36.0-47.0) L 05/22/20 05:55 MCV 90.2 fL (80.0-100.0) 05/22/20 05:55 MCH 30.6 pg (27.0-34.0) 05/22/20 05:55 MCHC 34.0 g/dL (33.0-35.0) 05/22/20 05:55 RDW 16.1 % (11.6-16.5) 05/22/20 05:55 Plt Count 509 X10^3/uL (150.0-450.0) H 05/22/20 05:55 Plt Count Comment Increased (ADEQUATE) A 05/19/20 17:17 MPV 6.2 fL (7.4-11.0) L 05/22/20 05:55 Neut % (Auto) 87.9 % (42.0-75.0) H 05/22/20 05:55 Lymph % (Auto) 8.9 % (21.0-51.0) L 05/22/20 05:55 [place] % (Auto) 3.1 % (0.0-13.0) 05/22/20 05:55 Eos % (Auto) 0.0 % (0.9-2.9) L 05/22/20 05:55 Baso % (Auto) 0.1 % (0.2-1.0) L 05/22/20 05:55 Neut # (Auto) 5.0 x10^3/uL (2.2-4.8) H 05/22/20 05:55 Lymph # (Auto) 0.5 X10^3/uL (1.3-2.9) L 05/22/20 05:55 [place] # (Auto) 0.2 x10^3/uL (0.3-0.8) L 05/22/20 05:55 Eos # (Auto) 0.0 x10^3/uL (0.0-0.2) 05/22/20 05:55 Baso # (Auto) 0.0 X10^3/uL (0.0-0.1) 05/22/20 05:55 Absolute Nucleated RBC 0.1 /100WBC 05/22/20 05:55 Total Counted 100 05/19/20 17:17 Neutrophils % (Manual) 84 % (39-76) H 05/19/20 17:17 Band Neutrophils % 8 % (0-10) 05/19/20 17:17 Lymphocytes % (Manual) 8 % (13-43) L 05/19/20 17:17 Plt Morphology Comment Normal (NORMAL) 05/19/20 17:17 RBC Morphology Normal (NORMAL) 05/19/20 17:17 D-Dimer 0.38 ug/ml (0.0-0.57) 05/22/20 05:55 Sample Site R rad 05/22/20 04:40 ABG pH 7.440 (7.35-7.45) 05/22/20 04:40 ABG pCO2 40.0 mmHg (35.0-45.0) 05/22/20 04:40 ABG pO2 52.0 mmHg (80.0-100.0) L 05/22/20 04:40 ABG HCO3 27.2 mmol/L (22-26) H 05/22/20 04:40 ABG O2 Saturation 88.0 % (90-100) L 05/22/20 04:40 ABG Base Excess 2.8 mmol/L (-2.0-2.0) H 05/22/20 04:40 Toro Test Poss 05/22/20 04:40 A-a Gradient 183.0 mmHg 05/22/20 04:40 FiO2 40.0 05/22/20 04:40 Blood Gas Comments Thomas well kb 05/22/20 04:40 Sodium 142 mmol/L (136-145) 05/22/20 05:55 Corrected Sodium 143 mmol/L (136-145) 05/22/20 05:55 Potassium 3.2 mmol/L (3.5-5.1) L 05/22/20 05:55 Chloride 105 mmol/L (98-107) 05/22/20 05:55 Carbon Dioxide 25.8 mmol/L (21-32) 05/22/20 05:55 BUN 12 mg/dL (7-18) 05/22/20 05:55 Creatinine 0.94 mg/dL (0.55-1.02) 05/22/20 05:55 Est GFR (MDRD) Af Amer > 60 (>60) 05/22/20 05:55 Est GFR (MDRD) Non-Af > 60 (>60) 05/22/20 05:55 Glucose 147 mg/dL (65-99) H 05/22/20 05:55 POC Glucose (mg/dL) 105 mg/dL (65-99) H 05/21/20 11:22 Lactic Acid 0.8 mmol/L (0.4-2.0) 05/19/20 17:17 Calcium 7.5 mg/dL (8.5-10.1) L 05/22/20 05:55 Corrected Calcium 8.6 mg/dL (8.5-10.1) 05/22/20 05:55 Magnesium 1.9 mg/dL (1.7-2.9) 05/22/20 05:55 Ferritin 278 ng/mL (8-252) H 05/22/20 05:55 Total Bilirubin 0.20 mg/dL (0.2-1.0) 05/22/20 05:55 AST 26 Units/L (15-37) 05/22/20 05:55 ALT 14 Units/L (12-78) 05/22/20 05:55 Alkaline Phosphatase 88 Units/L (46-116) 05/22/20 05:55 Creatine Kinase 13 Units/L (26-192) L 05/19/20 17:17 CK-MB (CK-2) < 1.0 ng/mL (0-4.0) 05/19/20 17:17 CK/CKMB % Calc 7.7 % (<4) 05/19/20 17:17 Troponin I < 0.02 ng/mL (0-1.5) 05/19/20 22:37 C-Reactive Protein 7.50 mg/L (0-3.0) H 05/22/20 05:55 B-Natriuretic Peptide 108 pg/mL (0-79) H 05/22/20 05:55 Total Protein 5.9 g/dL (6.4-8.2) L 05/22/20 05:55 Albumin 2.6 g/dL (3.4-5.0) L 05/22/20 05:55 Globulin 3.3 g/dL (2.5-4.5) 05/22/20 05:55 Albumin/Globulin Ratio 0.8 Ratio (1.1-2.1) L 05/22/20 05:55 Stool Description 25 grms loose yellow 05/20/20 13:34 Stool Description 25 grms loose yellow 05/20/20 13:34 Stl Occult Blood (IFOB) Negative (NEGATIVE) 05/20/20 13:34 Stool for White Cells Negative (NEGATIVE) 05/20/20 13:34 Stl C. diff Tox B Gene Negative (NEGATIVE) 05/20/20 13:34 Stl C. diff [id number]-[id number] Negative (NEGATIVE) 05/20/20 13:34 SARS-CoV-2 (PCR) Positive (NEGATIVE) A 05/19/20 17:40 Cryptosporid parvum Ag Negative (NEGATIVE) 05/20/20 13:34 Giardia lamblia Ag Negative (NEGATIVE) 05/20/20 13:34 Influenza Type A (PCR) Negative (NEGATIVE) 05/19/20 17:40 Influenza Type B (PCR) Negative (NEGATIVE) 05/19/20 17:40 RSV (PCR) Negative (NEGATIVE) 05/19/20 17:40 Blood Type A POSITIVE 05/20/20 11:28 - Plan (1) Pneumonia due to 2019 novel coronavirus Status: Acute Plan: SUPPLEMENTAL OXYGEN, NS AT [facility], REMDESIVIR 100MG IV DAILY, LEVAQUIN 500MG IV DAILY, FORTAZ 1G IV Q8H, ASCORBIC ACID 1500MG IV Q6H, PULMICORT NEB TX, ALB UTEROL NEB TX, BROVANA NEB TX, LIPITOR 80MG PO DAILY, TESSALON PERLES 200MG PO TID, ROBITUSSIN DM 10 ML PO QID, ZYRTEC 10MG PO DAILY, TUSSIONEX 5ML PO Q12H PRN, LOMOTIL 1 TAB PO QID PRN, LOVENOX 30MG SC BID, PEPCID 40MG PO BID, TRICOR 160MG PO DAILY, DIFLUCAN 100MG PO DAILY, IVERMECTIN, SYNTHROID 100MCG PO DAILY, MAGIC MOUTHWASH 5ML QID PRN, MELATONIN 10MG PO HS, SOLU-MEDROL 125MG IV Q6H, SINGULAIR 10MG PO HS, PROTONIX 40MG PO DAILY, THIAMINE 200MG IV BID, AND ZINC SULFATE 220MG PO BID (2) Hypoxia Status: Acute (3) CHF (congestive heart failure) Status: Acute Qualifiers: Heart failure type: unspecified Heart failure chronicity: acute on chronic Qualified Code(s): I50.9 - Heart failure, unspecified (4) Dyspnea Status: Acute Qualifiers: Dyspnea type: shortness of breath Qualified Code(s): R06.02 - Shortness of breath
[2020-05-22] MEDS: SINGULAIR TAB 10 MG PO SCH (20:28)
[2020-05-22] MEDS: MELATONIN PO SCH (20:29)
[2020-05-23] MEDS: ACCUNEB 1.25 MG NEBULE NEB SCH ×5 (00:19→17:19)
[2020-05-23] MEDS: MUCOMYST 20% 200 MG/ML NEB SCH ×5 (00:20→17:19)
[2020-05-23] MEDS: SOLU-Medrol 125 MG VIAL IVP SCH ×4 (01:03→17:22)
[2020-05-23] MEDS: NS 1000 ML 1,000 ML IV SCH ×2 (01:16→22:20)
[2020-05-23] MEDS: ASCORBIC ACID INJ MULTI-DOSE VIAL 1,500 MG in NS 100 ML IV 100 ML IV SCH ×4 (02:34→20:10)
[2020-05-23] MEDS: FORTAZ or TAZICEF VIAL INJ 1 G in NS 100 ML IV + SPIKE MINIBAG* 100 ML IV SCH ×3 (05:03→22:09)
[2020-05-23] MEDS: TESSALON PERLES PO SCH ×3 (05:09→22:09)
[2020-05-23 05:30] LABS: ABG ALLEN TEST POS; ABG BASE EXCESS 5.6 mmol/L (-2.0-2.0); ABG HCO3 29.8 mmol/L (22-26)
[2020-05-23 06:20] LABS: BASOPHILS % (AUTO) 0.2 % (0.2-1.0); HEMOGLOBIN 9.6 g/dL (12.0-16.0); LYMPHOCYTES # (AUTO) 0.5 X10^3/uL (1.3-2.9); LYMPHOCYTES % (AUTO) 5.1 % (21.0-51.0); MEAN CORPUSCULAR HEMOGLOBIN 29.9 pg (27.0-34.0); MEAN CORPUSCULAR HGB CONC 33.1 g/dL (33.0-35.0); MEAN CORPUSCULAR VOLUME 90.4 fL (80.0-100.0); MEAN PLATELET VOLUME 6.5 fL (7.4-11.0); MONOCYTES # (AUTO) 0.2 x10^3/uL (0.3-0.8); MONOCYTES % (AUTO) 2.5 % (0.0-13.0); NEUTROPHILS # (AUTO) 8.5 x10^3/uL (2.2-4.8); NEUTROPHILS % (AUTO) 92.2 % (42.0-75.0); PLATELET COUNT 547 X10^3/uL (150.0-450.0); RED BLOOD COUNT 3.21 X10^6/uL (3.5-5.4); RED CELL DISTRIBUTION WIDTH 15.4 % (11.6-16.5); WHITE BLOOD COUNT 9.2 X10^3/uL (3.6-10.0)
[2020-05-23 06:34] LABS: ALANINE AMINOTRANSFERASE 13 Units/L (12-78); ALBUMIN 2.7 g/dL (3.4-5.0); ALKALINE PHOSPHATASE 104 Units/L (46-116); ASPARTATE AMINO TRANSFERASE 32 Units/L (15-37); BLOOD UREA NITROGEN 12 mg/dL (7-18); CALCIUM 7.6 mg/dL (8.5-10.1); CARBON DIOXIDE 28.7 mmol/L (21-32); CHLORIDE 106 mmol/L (98-107); COR CA(FOR HYPOALB) 8.6 mg/dL (8.5-10.1); COR NA(FOR HYPERGLY) 146 mmol/L (136-145); SODIUM 145 mmol/L (136-145); TOTAL PROTEIN 5.9 g/dL (6.4-8.2); eGFR NON BLACK RACES > 60 (>60)
[2020-05-23 07:21] LABS: BAND NEUTROPHILS % 6 % (0-10); PLATELET MORPHOLOGY COMMENT NORMAL (NORMAL)
--- NOTE | 2020-05-23 07:41 | RAD ---
HISTORYSOBSTUDYCHEST, 1 VIEWCOMPARISONOne day prior.TECHNIQUEAP view of the chestFINDINGSThe cardiac silhouette is stably enlarged. Mediastinal contours appear stable. No significant change in bilateral airspace and interstitial opacities. No definite pleural effusion or pneumothorax. Soft tissue attenuation limits evaluation.IMPRESSIONNo significant change.Electronically signed by: Carlos Singh (May 23, 2020 07:40:42)
[2020-05-23] MEDS: BROVANA IN SCH ×2 (08:30→21:30)
[2020-05-23] MEDS: PULMICORT NEB TX 0.5 MG NEB SCH ×2 (08:30→21:30)
[2020-05-23] MEDS ORDERED: IVERMECTIN PO ONE (09:00)
[2020-05-23] MEDS: VITAMIN D3 125 mcg (5,000 UNITS) PO SCH (09:40)
[2020-05-23] MEDS: PROTONIX TAB 40 MG PO SCH (09:41)
[2020-05-23] MEDS: ZINC SULFATE PO SCH ×2 (09:41→20:08)
[2020-05-23] MEDS: LIPITOR TAB 80 MG PO SCH (09:41)
[2020-05-23] MEDS: PEPCID TAB 40 MG PO SCH ×2 (09:41→20:07)
[2020-05-23] MEDS: SYNTHROID 100 mcg TAB PO SCH (09:42)
[2020-05-23] MEDS: ROBITUSSIN DM PO SCH ×4 (09:42→20:07)
[2020-05-23] MEDS: TRICOR TAB 160 MG PO SCH (09:43)
[2020-05-23] MEDS: REMDESIVIR 100 MG in NS 250 ML IV 250 ML IV SCH (10:00)
[2020-05-23] MEDS: LOVENOX INJ 40 MG SYR SC SCH (10:39)
[2020-05-23] MEDS: DIFLUCAN PO SCH (10:49)
[2020-05-23] MEDS: THIAMINE HCL INJ IVP SCH ×2 (10:50→20:08)
[2020-05-23] MEDS: LEVAQUIN PREMIX IV 500 MG 500 MG/100 ML BAG IV SCH (10:50)
[2020-05-23] MEDS: ZyrTEC TAB 10 MG PO SCH (10:50)
[2020-05-23] MEDS ORDERED: IVERMECTIN PO NR (14:00)
[2020-05-23] MEDS: MELATONIN PO SCH (20:09)
[2020-05-23] MEDS: SINGULAIR TAB 10 MG PO SCH (20:09)
[2020-05-24] MEDS: SOLU-Medrol 125 MG VIAL IVP SCH ×5 (00:15→23:37)
[2020-05-24] MEDS: ACCUNEB 1.25 MG NEBULE NEB SCH ×4 (00:48→18:00)
[2020-05-24] MEDS: MUCOMYST 20% 200 MG/ML NEB SCH ×4 (00:48→18:00)
[2020-05-24] MEDS: ASCORBIC ACID INJ MULTI-DOSE VIAL 1,500 MG in NS 100 ML IV 100 ML IV SCH ×4 (02:39→21:08)
[2020-05-24] MEDS: KLOR-CON PO PRN (03:39)
[2020-05-24 04:55] LABS: BASOPHILS % (AUTO) 0.1 % (0.2-1.0); HEMATOCRIT 29.6 % (36.0-47.0); HEMOGLOBIN 9.8 g/dL (12.0-16.0); LYMPHOCYTES # (AUTO) 0.5 X10^3/uL (1.3-2.9); LYMPHOCYTES % (AUTO) 4.5 % (21.0-51.0); MEAN CORPUSCULAR HEMOGLOBIN 29.9 pg (27.0-34.0); MEAN CORPUSCULAR HGB CONC 33.2 g/dL (33.0-35.0); MEAN CORPUSCULAR VOLUME 90.1 fL (80.0-100.0); MEAN PLATELET VOLUME 6.2 fL (7.4-11.0); MONOCYTES # (AUTO) 0.2 x10^3/uL (0.3-0.8); MONOCYTES % (AUTO) 1.4 % (0.0-13.0); NEUTROPHILS # (AUTO) 10.3 x10^3/uL (2.2-4.8); PLATELET COUNT 552 X10^3/uL (150.0-450.0); RED BLOOD COUNT 3.28 X10^6/uL (3.5-5.4); RED CELL DISTRIBUTION WIDTH 15.3 % (11.6-16.5); WHITE BLOOD COUNT 10.9 X10^3/uL (3.6-10.0)
[2020-05-24 05:02] LABS: ABG BASE EXCESS 5.7 mmol/L (-2.0-2.0); ABG HCO3 28.6 mmol/L (22-26)
[2020-05-24 05:03] LABS: ABG ALLEN TEST POS
[2020-05-24 05:13] LABS: ALANINE AMINOTRANSFERASE 15 Units/L (12-78); ALBUMIN 2.7 g/dL (3.4-5.0); ALKALINE PHOSPHATASE 114 Units/L (46-116); ASPARTATE AMINO TRANSFERASE 32 Units/L (15-37); BLOOD UREA NITROGEN 15 mg/dL (7-18); CALCIUM 7.2 mg/dL (8.5-10.1); CARBON DIOXIDE 30.2 mmol/L (21-32); CHLORIDE 104 mmol/L (98-107); COR CA(FOR HYPOALB) 8.2 mg/dL (8.5-10.1); COR NA(FOR HYPERGLY) 143 mmol/L (136-145); CREATININE 0.92 mg/dL (0.55-1.02); SODIUM 142 mmol/L (136-145); TOTAL PROTEIN 5.8 g/dL (6.4-8.2); eGFR NON BLACK RACES > 60 (>60)
[2020-05-24] MEDS: FORTAZ or TAZICEF VIAL INJ 1 G in NS 100 ML IV + SPIKE MINIBAG* 100 ML IV SCH ×3 (05:24→22:50)
[2020-05-24] MEDS: TESSALON PERLES PO SCH ×3 (05:30→21:07)
[2020-05-24 05:42] LABS: PLATELET MORPHOLOGY COMMENT NORMAL (NORMAL)
--- NOTE | 2020-05-24 06:10 | RAD ---
HISTORYCOVID PNEUMONIA, SOB, ACUTE DYSPNEASTUDYCHEST, 1 [id number]/05/2021 aFINDINGSThe trachea is midline. The cardiac silhouette is mildly enlarged.. Bilateral airspace and interstitial opacities unchanged. No pneumothorax.. The bony thorax a.IMPRESSIONStable portable chestElectronically signed by: Kannan Connor (May 24, 2020 06:08:23)
[2020-05-24] MEDS: REMDESIVIR 100 MG in NS 250 ML IV 250 ML IV SCH (08:49)
[2020-05-24] MEDS: LEVAQUIN PREMIX IV 500 MG 500 MG/100 ML BAG IV SCH (08:50)
[2020-05-24] MEDS: ROBITUSSIN DM PO SCH ×4 (08:50→21:08)
[2020-05-24] MEDS: PROTONIX TAB 40 MG PO SCH (08:51)
[2020-05-24] MEDS: DIFLUCAN PO SCH (08:51)
[2020-05-24] MEDS: TRICOR TAB 160 MG PO SCH (08:51)
[2020-05-24] MEDS: ZINC SULFATE PO SCH ×2 (08:52→21:07)
[2020-05-24] MEDS: ZyrTEC TAB 10 MG PO SCH (08:52)
[2020-05-24] MEDS: SYNTHROID 100 mcg TAB PO SCH (08:52)
[2020-05-24] MEDS: VITAMIN D3 125 mcg (5,000 UNITS) PO SCH (08:53)
[2020-05-24] MEDS: THIAMINE HCL INJ IVP SCH ×2 (08:53→21:07)
[2020-05-24] MEDS: PEPCID TAB 40 MG PO SCH ×2 (08:53→21:07)
[2020-05-24] MEDS: LIPITOR TAB 80 MG PO SCH (08:53)
[2020-05-24] MEDS: LOVENOX INJ 40 MG SYR SC SCH (08:54)
[2020-05-24] MEDS: PULMICORT NEB TX 0.5 MG NEB SCH ×2 (09:40→21:02)
[2020-05-24] MEDS: BROVANA IN SCH ×2 (09:45→20:55)
[2020-05-24] MEDS ORDERED: IMODIUM CAP 2 MG PO PRN (14:06)
[2020-05-24] MEDS: SINGULAIR TAB 10 MG PO SCH (21:07)
[2020-05-24] MEDS: MELATONIN PO SCH (21:07)
[2020-05-24] MEDS: NS 1000 ML 1,000 ML IV SCH (22:07)
[2020-05-25] MEDS: ACCUNEB 1.25 MG NEBULE NEB SCH ×4 (01:10→18:04)
[2020-05-25] MEDS: MUCOMYST 20% 200 MG/ML NEB SCH ×4 (01:10→18:04)
[2020-05-25] MEDS: ASCORBIC ACID INJ MULTI-DOSE VIAL 1,500 MG in NS 100 ML IV 100 ML IV SCH ×4 (03:03→20:25)
[2020-05-25] MEDS: KLOR-CON PO PRN (03:03)
[2020-05-25 04:56] LABS: BASOPHILS % (AUTO) 0.1 % (0.2-1.0); HEMATOCRIT 25.8 % (36.0-47.0); HEMOGLOBIN 8.6 g/dL (12.0-16.0); LYMPHOCYTES # (AUTO) 0.3 X10^3/uL (1.3-2.9); LYMPHOCYTES % (AUTO) 2.9 % (21.0-51.0); MEAN CORPUSCULAR HEMOGLOBIN 29.8 pg (27.0-34.0); MEAN CORPUSCULAR HGB CONC 33.2 g/dL (33.0-35.0); MEAN CORPUSCULAR VOLUME 89.7 fL (80.0-100.0); MEAN PLATELET VOLUME 6.3 fL (7.4-11.0); MONOCYTES # (AUTO) 0.3 x10^3/uL (0.3-0.8); MONOCYTES % (AUTO) 2.4 % (0.0-13.0); NEUTROPHILS # (AUTO) 10.8 x10^3/uL (2.2-4.8); NEUTROPHILS % (AUTO) 94.6 % (42.0-75.0); PLATELET COUNT 456 X10^3/uL (150.0-450.0); RED BLOOD COUNT 2.87 X10^6/uL (3.5-5.4); RED CELL DISTRIBUTION WIDTH 15.3 % (11.6-16.5); WHITE BLOOD COUNT 11.4 X10^3/uL (3.6-10.0)
[2020-05-25 05:10] LABS: ALANINE AMINOTRANSFERASE 14 Units/L (12-78); ALBUMIN 2.3 g/dL (3.4-5.0); ALKALINE PHOSPHATASE 103 Units/L (46-116); ASPARTATE AMINO TRANSFERASE 32 Units/L (15-37); BLOOD UREA NITROGEN 20 mg/dL (7-18); CALCIUM 6.6 mg/dL (8.5-10.1); CARBON DIOXIDE 34.2 mmol/L (21-32); CHLORIDE 105 mmol/L (98-107); COR NA(FOR HYPERGLY) 144 mmol/L (136-145); CREATININE 0.81 mg/dL (0.55-1.02); MAGNESIUM 2.2 mg/dL (1.7-2.9); SODIUM 143 mmol/L (136-145); eGFR NON BLACK RACES > 60 (>60)
[2020-05-25 05:30] LABS: PLATELET MORPHOLOGY COMMENT NORMAL (NORMAL)
[2020-05-25 05:33] LABS: ABG BASE EXCESS 12.8 mmol/L (-2.0-2.0)
[2020-05-25 05:34] LABS: ABG ALLEN TEST POS; ABG HCO3 37.5 mmol/L (22-26)
[2020-05-25] MEDS: TESSALON PERLES PO SCH ×3 (05:59→22:06)
[2020-05-25] MEDS: SOLU-Medrol 125 MG VIAL IVP SCH ×3 (05:59→17:32)
[2020-05-25] MEDS: FORTAZ or TAZICEF VIAL INJ 1 G in NS 100 ML IV + SPIKE MINIBAG* 100 ML IV SCH ×3 (05:59→22:06)
--- NOTE | 2020-05-25 06:16 | RAD ---
HISTORYCOVID PNEUMONIA, SOB, ACUTE DYSPNEASTUDYCHEST, 1 [id number]/06/2021FINDINGSThe trachea is midline. The cardiac silhouette is mildly enlarged. Bilateral airspace and interstitial opacities unchanged from prior study. No pneumothorax.. The bony thorax is unremarkable.IMPRESSIONBilateral airspace and interstitial opacities unchanged from previous 05/24/2020lectronically signed by: Kannan Connor (May 25, 2020 06:14:46)
[2020-05-25] MEDS: TUSSIONEX PENNKINETIC SUSP PO PRN (09:20)
[2020-05-25] MEDS: DIFLUCAN PO SCH (09:42)
[2020-05-25] MEDS: LEVAQUIN PREMIX IV 500 MG 500 MG/100 ML BAG IV SCH (09:45)
[2020-05-25] MEDS: LIPITOR TAB 80 MG PO SCH (09:45)
[2020-05-25] MEDS: LOVENOX INJ 40 MG SYR SC SCH (09:46)
[2020-05-25] MEDS: PULMICORT NEB TX 0.5 MG NEB SCH ×2 (09:50→21:12)
[2020-05-25] MEDS: PEPCID TAB 40 MG PO SCH ×2 (09:51→20:29)
[2020-05-25] MEDS: PROTONIX TAB 40 MG PO SCH (09:53)
[2020-05-25] MEDS: BROVANA IN SCH ×2 (09:55→21:05)
[2020-05-25] MEDS: THIAMINE HCL INJ IVP SCH ×2 (09:56→20:25)
[2020-05-25] MEDS: SYNTHROID 100 mcg TAB PO SCH (09:56)
[2020-05-25] MEDS: VITAMIN D3 125 mcg (5,000 UNITS) PO SCH (09:56)
[2020-05-25] MEDS: ZINC SULFATE PO SCH ×2 (09:56→20:28)
[2020-05-25] MEDS: ROBITUSSIN DM PO SCH ×4 (09:56→20:26)
[2020-05-25 11:14] LABS: BILIRUBIN,URINE NEGATIVE (NEGATIVE); BLOOD/HEMOGLOBIN,URINE NEGATIVE (NEGATIVE); GLUCOSE, URINE 2+ (NEGATIVE); KETONES,URINE NEGATIVE (NEGATIVE); LEUKOCYTE ESTERASE ,URINE NEGATIVE (NEGATIVE); NITRITES,URINE NEGATIVE (NEGATIVE); PROTEIN,URINE 2+ (NEGATIVE); UROBILINOGEN,URINE NORMAL (NORMAL)
[2020-05-25 11:31] LABS: APPEARANCE,URINE CLEAR (CLEAR); BACTERIA,URINE TRACE /HPF (NEGATIVE); COLOR,URINE YELLOW (YELLOW); RBC,URINE 0-2 /HPF (0-3); SQUAMOUS EPITHELIAL CELL,UR NEGATIVE /HPF (NEGATIVE)
[2020-05-25] MEDS: TRICOR TAB 160 MG PO SCH (14:20)
[2020-05-25] MEDS: ZyrTEC TAB 10 MG PO SCH (14:26)
[2020-05-25] MEDS ORDERED: APRESOLINE INJ 20 MG VIAL ONE (17:25)
[2020-05-25] MEDS: APRESOLINE INJ 20 MG VIAL IVP PRN (17:33)
[2020-05-25] MEDS: SINGULAIR TAB 10 MG PO SCH (20:28)
[2020-05-25] MEDS: MELATONIN PO SCH (20:28)
[2020-05-25] MEDS: COZAAR PO SCH (20:29)
[2020-05-25] MEDS: PROCARDIA XL 24-hr PO SCH (20:34)
[2020-05-26] MEDS: SOLU-Medrol 125 MG VIAL IVP SCH ×4 (00:43→17:17)
[2020-05-26] MEDS: ACCUNEB 1.25 MG NEBULE NEB SCH ×4 (01:06→17:42)
[2020-05-26] MEDS: MUCOMYST 20% 200 MG/ML NEB SCH ×4 (01:06→17:42)
[2020-05-26] MEDS: APRESOLINE INJ 20 MG VIAL IVP PRN (01:27)
[2020-05-26] MEDS: NS 1000 ML 1,000 ML IV SCH (02:20)
[2020-05-26] MEDS: ASCORBIC ACID INJ MULTI-DOSE VIAL 1,500 MG in NS 100 ML IV 100 ML IV SCH ×4 (02:20→21:12)
[2020-05-26] MEDS: FORTAZ or TAZICEF VIAL INJ 1 G in NS 100 ML IV + SPIKE MINIBAG* 100 ML IV SCH ×3 (05:37→22:03)
[2020-05-26] MEDS: TESSALON PERLES PO SCH ×3 (05:38→21:13)
[2020-05-26 06:05] LABS: BASOPHILS % (AUTO) 0.1 % (0.2-1.0); HEMATOCRIT 27.7 % (36.0-47.0); HEMOGLOBIN 9.4 g/dL (12.0-16.0); LYMPHOCYTES # (AUTO) 0.3 X10^3/uL (1.3-2.9); LYMPHOCYTES % (AUTO) 2.4 % (21.0-51.0); MEAN CORPUSCULAR HEMOGLOBIN 30.2 pg (27.0-34.0); MEAN CORPUSCULAR VOLUME 88.9 fL (80.0-100.0); MEAN PLATELET VOLUME 6.3 fL (7.4-11.0); MONOCYTES # (AUTO) 0.3 x10^3/uL (0.3-0.8); MONOCYTES % (AUTO) 2.5 % (0.0-13.0); NEUTROPHILS # (AUTO) 11.3 x10^3/uL (2.2-4.8); PLATELET COUNT 419 X10^3/uL (150.0-450.0); RED BLOOD COUNT 3.12 X10^6/uL (3.5-5.4); RED CELL DISTRIBUTION WIDTH 15.9 % (11.6-16.5); WHITE BLOOD COUNT 11.9 X10^3/uL (3.6-10.0)
--- NOTE | 2020-05-26 06:14 | RAD ---
HISTORYDYSPNEASTUDYCHEST, 1 [id number]/07/2021 isFINDINGSThe trachea is midline. The cardiac silhouette is mildly enlarged.. Bilateral airspace and interstitial opacities unchanged. No pneumothorax.. The bony thorax is unremarkable.IMPRESSIONStable portable chestElectronically signed by: Kannan Connor (May 26, 2020 06:13:51)
[2020-05-26 06:18] LABS: ABG BASE EXCESS 12.5 mmol/L (-2.0-2.0)
[2020-05-26 06:21] LABS: ABG ALLEN TEST POS; ABG HCO3 35.8 mmol/L (22-26)
[2020-05-26 06:26] LABS: ALANINE AMINOTRANSFERASE 20 Units/L (12-78); ALBUMIN 2.6 g/dL (3.4-5.0); ALKALINE PHOSPHATASE 121 Units/L (46-116); ASPARTATE AMINO TRANSFERASE 41 Units/L (15-37); BLOOD UREA NITROGEN 26 mg/dL (7-18); CALCIUM 6.9 mg/dL (8.5-10.1); CARBON DIOXIDE 34.5 mmol/L (21-32); CHLORIDE 104 mmol/L (98-107); COR NA(FOR HYPERGLY) 144 mmol/L (136-145); CREATININE 0.77 mg/dL (0.55-1.02); SODIUM 143 mmol/L (136-145); TOTAL PROTEIN 5.2 g/dL (6.4-8.2); eGFR NON BLACK RACES > 60 (>60)
[2020-05-26] MEDS: K-DUR TAB 20 MEQ PO PRN (06:38)
[2020-05-26 06:55] LABS: BAND NEUTROPHILS % 1 % (0-10)
[2020-05-26 06:56] LABS: PLATELET MORPHOLOGY COMMENT NORMAL (NORMAL)
[2020-05-26] MEDS: SYNTHROID 100 mcg TAB PO SCH (08:24)
[2020-05-26] MEDS: DIFLUCAN PO SCH (08:24)
[2020-05-26] MEDS: LIPITOR TAB 80 MG PO SCH (08:24)
[2020-05-26] MEDS: ROBITUSSIN DM PO SCH ×4 (08:25→21:16)
[2020-05-26] MEDS: VITAMIN D3 125 mcg (5,000 UNITS) PO SCH (08:25)
[2020-05-26] MEDS: PROTONIX TAB 40 MG PO SCH (08:25)
[2020-05-26] MEDS: PEPCID TAB 40 MG PO SCH ×2 (08:25→21:15)
[2020-05-26] MEDS: TRICOR TAB 160 MG PO SCH (08:26)
[2020-05-26] MEDS: ZINC SULFATE PO SCH ×2 (08:26→21:13)
[2020-05-26] MEDS: THIAMINE HCL INJ IVP SCH ×2 (08:26→21:13)
[2020-05-26] MEDS: ZyrTEC TAB 10 MG PO SCH (08:26)
[2020-05-26] MEDS: BROVANA IN SCH ×2 (09:20→21:00)
[2020-05-26] MEDS: PULMICORT NEB TX 0.5 MG NEB SCH ×2 (09:25→20:50)
[2020-05-26] MEDS: LOVENOX INJ 40 MG SYR SC SCH (09:45)
[2020-05-26] MEDS: LEVAQUIN PREMIX IV 500 MG 500 MG/100 ML BAG IV SCH (09:45)
--- NOTE | 2020-05-26 11:49 | PCM.PROG ---
Progress Note - Progress Note for Day of Date of Exam: 05/23/20 - Subjective Subjective: IS BEING TREATED FOR PNEUMONIA DUE TO COVID-19, HYPOXIA, CHF, AND DYSPNEA. TODAY, SHE IS ALERT AND ORIENTED, LYING IN BED ON MORNING ROUNDS. SHE CONTINUES WITH A NON-PRODUCTIVE COUGH, SHORTNESS OF BREATH, AND WEAKNESS THIS MORNING. SHE REPORTS A SLIGHT INCREASE IN SHORTNESS OF BREATH TODAY. SHE DID HAVE AN EPISODE OF HYPOXEMIA YESTERDAY AND HER OXYGEN HAD TO BE INCREASED TO 6 LPM. SHE IS CURRENTLY UTILIZING OXYGEN VIA NASAL CANNULA AT 7 LITERS PER MINUTE. HER SATURATIONS HAVE BEEN 88-94% THIS MORNING AND THROUGHOUT THE NIGHT. ON EXAMINATION, HEART IS REGULAR IN RATE AND RHYTHM. BILATERAL LUNGS ARE NOTED WITH RALES THROUGHOUT. ABDOMEN IS ROUND, SOFT, AND NON-TENDER WITH NORMAL BOWEL SOUNDS NOTED IN ALL QUADRANTS. HER VITALS THIS MORNING ARE: 97.7-92-26-88%-174/74. LABS WERE OBTAINED. ABNORMAL LAB VALUES INCLUDE THE FOLLOWING: RBC 3.21, HGB 9.6, HCT 29.0, PLT COUNT 547, GLUCOSE 123, CALCIUM 7.6, FERRITIN 281, BNP 198, TOTAL PROTEIN 5.9, ALBUMIN 2.7. AN ABG WAS OBTAINED AND REVEALED: PH 7.470, PC02 41, P02 62, HC03 29.8, 02 SAT 93, BASE EXCESS 5.6, A-A GRADIENT 200, FI02 44. BLOOD, STOOL, AND SPUTUM CULTURES ARE PENDING. A CHEST XRAY WAS OBTAINED AND REVEALED: The cardiac silhouette is stably enlarged. Mediastinal contours appear stable. No significant change in bilateral airspace and interstitial opacities. No definite pleural effusion or pneumothorax. Soft tissue attenuation limits evaluation. SHE IS CURRENTLY RECEIVING NS AT [facility], REMDESIVIR 100MG IV DAILY, LEVAQUIN 500MG IV DAILY, FORTAZ 1G IV Q8H, ASCORBIC ACID 1500MG IV Q6H, PULMICORT NEB TX, ALBUTEROL NEB TX, BROVANA NEB TX, LIPITOR 80MG PO DAILY, TESSALON PERLES 200MG PO TID, ROBITUSSIN DM 10 ML PO QID, ZYRTEC 10MG PO DAILY, TUSSIONEX 5ML PO Q12H PRN, LOMOTIL 1 TAB PO QID PRN, LOVENOX 30MG SC BID, PEPCID 40MG PO BID, TRICOR 160MG PO DAILY, DIFLUCAN 100MG PO DAILY, IVERMECTIN, SYNTHROID 100MCG PO DAILY, MAGIC MOUTHWASH 5ML QID PRN, MELATONIN 10MG PO HS, SOLU-MEDROL 125MG IV Q6H, SINGULAIR 10MG PO HS, PROTONIX 40MG PO DAILY, THIAMINE 200MG IV BID, AND ZINC SULFATE 220MG PO BID. WE WILL CONTINUE WITH CURRENT PLAN OF CARE TODAY. WE WILL ORDER FOR PATIENT TO USE THE SMARTVE[employer] THROUGHOUT THE DAY TO MOBILIZE SECRETIONS. OTHERWISE, WE PLAN TO FOLLOW UP WITH AM LABS, CHEST XRAY, ABG, AND CONTINUE TO MONITOR. TIME SPENT ON CLINICAL ASSESSMENT, REVIEWING LABS AND IMAGING, DECISION MAKING, AND DOCUMENTATION GREATER THAN 75 MINUTES. - Past Medical Family Social History Past Med/Fam/Surg Hx: No changes since H&P Allergies: Allergies cefdinir Allergy (Mild, Verified 05/30/17 17:02) patient states it makes her itch all over and grabs at her hands. - Review of Systems ROS: No change since H&P - Vital Signs and I&O's Vital Signs: Temperature 98 F Pulse Rate [Left] 59 Pulse Rate 84 Respiratory Rate 17 Blood Pressure [Left Arm] 147/68 Blood Pressure [Right Arm] 166/71 Blood Pressure 124/59 O2 Sat by Pulse Oximetry 95 Intake and Output: Intake & Output 05/23/20 05/24/20 05/25/20 05/26/20 11:59 11:59 11:59 11:59 Intake Total 2740 / 2740 1580 / 1580 1080 / 1080 1624 / 1624 Output Total 1625 / 1625 Balance 2740 / 2740 1580 / 1580 1080 / 1080 -1 / -1 - Physical Exam Oriented: Normal Eyes: Normal Ear: Normal Nose: Normal Throat: Normal Respiratory: Generalized, Diminished, Rales Cardiovascular: Normal : Normal Auscultation: Bowel Sounds: Normal Tenderness: Normal Skin: Normal Musculoskeletal: Normal Psychiatric: Normal Mood Description: Calm Affect: Normal Speech Pattern: Clear, Appropriate - Laboratory and Diagnostics Result Diagrams: 05/26/20 04:55 05/26/20 04:55 Labs: 05/19/20 17:17 Blood Blood Culture - Final 05/19/20 17:03 Blood Blood Culture - Final 05/20/20 18:02 Sputum - Expectorated Sputum Sputum Culture - Final 05/20/20 18:02 Sputum - Expectorated Sputum - Final 05/20/20 13:34 Stool Stool Culture - Final 05/20/20 13:34 Stool - Final Laboratory WBC 11.9 X10^3/uL (3.6-10.0) H 05/26/20 04:55 RBC 3.12 X10^6/uL (3.5-5.4) L 05/26/20 04:55 Hgb 9.4 g/dL (12.0-16.0) L 05/26/20 04:55 Hct 27.7 % (36.0-47.0) L 05/26/20 04:55 MCV 88.9 fL (80.0-100.0) 05/26/20 04:55 MCH 30.2 pg (27.0-34.0) 05/26/20 04:55 MCHC 34.0 g/dL (33.0-35.0) 05/26/20 04:55 RDW 15.9 % (11.6-16.5) 05/26/20 04:55 Plt Count 419 X10^3/uL (150.0-450.0) 05/26/20 04:55 Plt Count Comment Adequate (ADEQUATE) 05/26/20 04:55 MPV 6.3 fL (7.4-11.0) L 05/26/20 04:55 Neut % (Auto) 95.0 % (42.0-75.0) H 05/26/20 04:55 Lymph % (Auto) 2.4 % (21.0-51.0) L 05/26/20 04:55 [place] % (Auto) 2.5 % (0.0-13.0) 05/26/20 04:55 Eos % (Auto) 0.0 % (0.9-2.9) L 05/26/20 04:55 Baso % (Auto) 0.1 % (0.2-1.0) L 05/26/20 04:55 Neut # (Auto) 11.3 x10^3/uL (2.2-4.8) H 05/26/20 04:55 Lymph # (Auto) 0.3 X10^3/uL (1.3-2.9) L 05/26/20 04:55 [place] # (Auto) 0.3 x10^3/uL (0.3-0.8) 05/26/20 04:55 Eos # (Auto) 0.0 x10^3/uL (0.0-0.2) 05/26/20 04:55 Baso # (Auto) 0.0 X10^3/uL (0.0-0.1) 05/26/20 04:55 Absolute Nucleated RBC 0.1 /100WBC 05/26/20 04:55 Total Counted 100 05/26/20 04:55 Neutrophils % (Manual) 96 % (39-76) H 05/26/20 04:55 Band Neutrophils % 1 % (0-10) 05/26/20 04:55 Lymphocytes % (Manual) 2 % (13-43) L 05/26/20 04:55 Monocytes % (Manual) 1 % (4-9) L 05/26/20 04:55 Plt Morphology Comment Normal (NORMAL) 05/26/20 04:55 RBC Morphology Normal (NORMAL) 05/26/20 04:55 D-Dimer 2.14 ug/ml (0.0-0.57) H* 05/26/20 05:00 Sample Site Lr 05/26/20 06:10 ABG pH 7.560 (7.35-7.45) H* 05/26/20 06:10 ABG pCO2 40.0 mmHg (35.0-45.0) 05/26/20 06:10 ABG pO2 84.0 mmHg (80.0-100.0) 05/26/20 06:10 ABG HCO3 35.8 mmol/L (22-26) H* 05/26/20 06:10 ABG O2 Saturation 98.0 % (90-100) 05/26/20 06:10 ABG Base Excess 12.5 mmol/L (-2.0-2.0) H 05/26/20 06:10 Toro Test Pos 05/26/20 06:10 A-a Gradient 308.0 mmHg 05/26/20 06:10 FiO2 62.0 05/26/20 06:10 Blood Gas Comments Thomas well, kh 05/26/20 06:10 Sodium 143 mmol/L (136-145) 05/26/20 04:55 Corrected Sodium 144 mmol/L (136-145) 05/26/20 04:55 Potassium 3.4 mmol/L (3.5-5.1) L 05/26/20 04:55 Chloride 104 mmol/L (98-107) 05/26/20 04:55 Carbon Dioxide 34.5 mmol/L (21-32) H 05/26/20 04:55 BUN 26 mg/dL (7-18) H 05/26/20 04:55 Creatinine 0.77 mg/dL (0.55-1.02) 05/26/20 04:55 Est GFR (MDRD) Af Amer > 60 (>60) 05/26/20 04:55 Est GFR (MDRD) Non-Af > 60 (>60) 05/26/20 04:55 Glucose 161 mg/dL (65-99) H 05/26/20 04:55 POC Glucose (mg/dL) 105 mg/dL (65-99) H 05/21/20 11:22 Lactic Acid 0.8 mmol/L (0.4-2.0) 05/19/20 17:17 Calcium 6.9 mg/dL (8.5-10.1) L 05/26/20 04:55 Corrected Calcium 8.0 mg/dL (8.5-10.1) L 05/26/20 04:55 Magnesium 2.2 mg/dL (1.7-2.9) 05/25/20 04:25 Ferritin 130 ng/mL (8-252) 05/25/20 04:25 Total Bilirubin 0.40 mg/dL (0.2-1.0) 05/26/20 04:55 AST 41 Units/L (15-37) H 05/26/20 04:55 ALT 20 Units/L (12-78) 05/26/20 04:55 Alkaline Phosphatase 121 Units/L (46-116) H 05/26/20 04:55 Creatine Kinase 13 Units/L (26-192) L 05/19/20 17:17 CK-MB (CK-2) < 1.0 ng/mL (0-4.0) 05/19/20 17:17 CK/CKMB % Calc 7.7 % (<4) 05/19/20 17:17 Troponin I < 0.02 ng/mL (0-1.5) 05/19/20 22:37 C-Reactive Protein < 0.50 mg/L (0-3.0) 05/26/20 04:55 B-Natriuretic Peptide 147 pg/mL (0-79) H 05/26/20 04:55 Total Protein 5.2 g/dL (6.4-8.2) L 05/26/20 04:55 Albumin 2.6 g/dL (3.4-5.0) L 05/26/20 04:55 Globulin 2.6 g/dL (2.5-4.5) 05/26/20 04:55 Albumin/Globulin Ratio 1.0 Ratio (1.1-2.1) L 05/26/20 04:55 Specimen Type Catherized urine 05/25/20 10:53 Urine Color Yellow (YELLOW) 05/25/20 10:53 Urine Appearance Clear (CLEAR) 05/25/20 10:53 Urine pH 6.0 (5.0 - 8.0) 05/25/20 10:53 Ur Specific [place] 1.020 (1.000-1.030) 05/25/20 10:53 Urine Protein 2+ (NEGATIVE) 05/25/20 10:53 Urine Glucose (UA) 2+ (NEGATIVE) 05/25/20 10:53 Urine Ketones Negative (NEGATIVE) 05/25/20 10:53 Urine Occult Blood Negative (NEGATIVE) 05/25/20 10:53 Urine Nitrite Negative (NEGATIVE) 05/25/20 10:53 Urine Bilirubin Negative (NEGATIVE) 05/25/20 10:53 Urine Urobilinogen Normal (NORMAL) 05/25/20 10:53 Ur Leukocyte Esterase Negative (NEGATIVE) 05/25/20 10:53 Urine RBC 0-2 /HPF (0-3) 05/25/20 10:53 Urine WBC None seen /HPF (0-5) 05/25/20 10:53 Ur Squamous Epith Cells Negative /HPF (NEGATIVE) 05/25/20 10:53 Urine Bacteria Trace /HPF (NEGATIVE) 05/25/20 10:53 Ur Culture Indicated? No/not indicated 05/25/20 10:53 Stool Description 25 grms loose yellow 05/20/20 13:34 Stool Description 25 grms loose yellow 05/20/20 13:34 Stl Occult Blood (IFOB) Negative (NEGATIVE) 05/20/20 13:34 Stool for White Cells Negative (NEGATIVE) 05/20/20 13:34 Stl C. diff Tox B Gene Negative (NEGATIVE) 05/20/20 13:34 Stl C. diff [id number] Negative (NEGATIVE) 05/20/20 13:34 SARS-CoV-2 (PCR) Positive (NEGATIVE) A 05/19/20 17:40 Cryptosporid parvum Ag Negative (NEGATIVE) 05/20/20 13:34 Giardia lamblia Ag Negative (NEGATIVE) 05/20/20 13:34 Influenza Type A (PCR) Negative (NEGATIVE) 05/19/20 17:40 Influenza Type B (PCR) Negative (NEGATIVE) 05/19/20 17:40 RSV (PCR) Negative (NEGATIVE) 05/19/20 17:40 Blood Type A POSITIVE 05/20/20 11:28 - Plan (1) Pneumonia due to 2019 novel coronavirus Status: Acute Plan: SUPPLEMENTAL OXYGEN, NS AT KVO, REMDESIVIR 100MG IV DAILY, LEVAQUIN 500MG IV DAILY, FORTAZ 1G IV Q8H, ASCORBIC ACID 1500MG IV Q6H, PULMICORT NEB TX, ALBUTEROL NEB TX, BROVANA NEB TX, LIPITOR 80MG PO DAILY, TESSALON PERLES 200MG PO TID, ROBITUSSIN DM 10 ML PO QID, ZYRTEC 10MG PO DAILY, TUSSIONEX 5ML PO Q12H PRN, LOMOTIL 1 TAB PO QID PRN, LOVENOX 30MG SC BID, PEPCID 40MG PO BID, TRICOR 160MG PO DAILY, DIFLUCAN 100MG PO DAILY, IVERMECTIN, SYNTHROID 100MCG PO DAILY, MAGIC MOUTHWASH 5ML QID PRN, MELATONIN 10MG PO HS, SOLU-MEDROL 125MG IV Q6H, SINGULAIR 10MG PO HS, PROTONIX 40MG PO DAILY, THIAMINE 200MG IV BID, AND ZINC SULFATE 220MG PO BID (2) Hypoxia Status: Acute (3) CHF (congestive heart failure) Status: Acute Qualifiers: Heart failure type: unspecified Heart failure chronicity: acute on chronic Qualified Code(s): I50.9 - Heart failure, unspecified (4) Dyspnea Status: Acute Qualifiers: Dyspnea type: shortness of breath Qualified Code(s): R06.02 - Shortness of breath
--- NOTE | 2020-05-26 20:48 | PCM.PROG ---
Progress Note - Progress Note for Day of Date of Exam: 05/26/20 - Subjective Subjective: IS BEING TREATED FOR PNEUMONIA DUE TO COVID-19, HYPOXIA, CHF, AND DYSPNEA. TODAY, SHE IS ALERT AND ORIENTED, LYING IN BED ON MORNING ROUNDS. SHE CONTINUES WITH A NON-PRODUCTIVE COUGH, SHORTNESS OF BREATH, AND WEAKNESS THIS MORNING. SHE WAS PLACED ON HEATED HIGH FLOW OXYGEN OVER THE WEEKEND DUE TO HYPOXEMIA. SHE REMAINS ON HEATED HIGH FLOW OXYGEN AT 45%. HER SATURATIONS HAVE BEEN 95-100% THIS MORNING AND THROUGHOUT THE NIGHT. ON EXAMINATION, HEART IS REGULAR IN RATE AND RHYTHM. BILATERAL LUNGS ARE NOTED WITH RALES THROUGHOUT. ABDOMEN IS ROUND, SOFT, AND NON-TENDER WITH NORMAL BOWEL SOUNDS NOTED IN ALL QUADRANTS. HER VITALS THIS MORNING ARE: 98.0-85-22-98%-140/65. LABS WERE OBTAINED. ABNORMAL LAB VALUES INCLUDE THE FOLLOWING: WBC 11.9, RBC 3.12, HGB 9.4, HCT 27.7, D-DIMER 2.14, POTASSIUM 3.4, CARBON DIOXIDE 34.5, BUN 26, GLUCOSE 161, CALCIUM 6.9, AST 41, ALK PHOS 121, BNP 147, TOTAL PROTEIN 5.2, ALBUMIN 2.6AN ABG WAS OBTAINED AND REVEALED: PH 7.560, PC02 40, P02 84, HC03 35.8, 02 SAT 98, BASE EXCESS 12.5, A-A GRADIENT 308, FI02 62. BLOOD, STOOL, AND SPUTUM CULTURES ARE PENDING. A CHEST XRAY WAS OBTAINED AND REVEALED: The trachea is midline. The cardiac silhouette is mildly enlarged. Bilateral airspace and interstitial opacities unchanged. No pneumothorax. The bony thorax is unremarkable. SHE IS CURRENTLY RECEIVING NS AT [facility], REMDESIVIR 100MG IV DAILY, LEVAQUIN 500MG IV DAILY, FORTAZ 1G IV Q8H, ASCORBIC ACID 1500MG IV Q6H, PULMICORT NEB TX, ALBUTEROL NEB TX, BROVANA NEB TX, LIPITOR 80MG PO DAILY, TESSALON PERLES 200MG PO TID, ROBITUSSIN DM 10 ML PO QID, ZYRTEC 10MG PO DAILY, TUSSIONEX 5ML PO Q12H PRN, LOMOTIL 1 TAB PO QID PRN, LOVENOX 30MG SC BID, PEPCID 40MG PO BID, TRICOR 160MG PO DAILY, DIFLUCAN 100MG PO DAILY, IVERMECTIN, SYNTHROID 100MCG PO DAILY, MAGIC MOUTHWASH 5ML QID PRN, MELATONIN 10MG PO HS, SOLU-MEDROL 125MG IV Q6H, SINGULAIR 10MG PO HS, PROTONIX 40MG PO DAILY, THIAMINE 200MG IV BID, AND ZINC SULFATE 220MG PO BID. WE WILL CONTINUE WITH CURRENT PLAN OF CARE TODAY. OTHERWISE, WE PLAN TO FOLLOW UP WITH AM LABS, CHEST XRAY, ABG, AND CONTINUE TO MONITOR. TIME SPENT ON CLINICAL ASSESSMENT, REVIEWING LABS AND IMAGING, DECISION MAKING, AND DOCUMENTATION GREATER THAN 75 MINUTES. - Past Medical Family Social History Past Med/Fam/Surg Hx: No changes since H&P Allergies: Allergies cefdinir Allergy (Mild, Verified 05/30/17 17:02) patient states it makes her itch all over and grabs at her hands. - Review of Systems ROS: No change since H&P - Vital Signs and I&O's Vital Signs: Temperature 98.4 F Pulse Rate [Left] 59 Pulse Rate 92 Respiratory Rate 21 Blood Pressure [Left Arm] 147/68 Blood Pressure [Right Arm] 166/71 Blood Pressure 140/66 O2 Sat by Pulse Oximetry 90 Intake and Output: Intake & Output 05/24/20 05/25/20 05/26/20 05/27/20 11:59 11:59 11:59 11:59 Intake Total 1580 / 1580 1080 / 1080 1624 / 1624 801 / 801 Output Total 1625 / 1625 300 / 300 Balance 1580 / 1580 1080 / 1080 -1 / -1 501 / 501 - Physical Exam Oriented: Normal Eyes: Normal Ear: Normal Nose: Normal Throat: Normal Respiratory: Generalized, Diminished, Rales Cardiovascular: Normal : Normal Auscultation: Bowel Sounds: Normal Tenderness: Normal Skin: Normal Musculoskeletal: Normal Psychiatric: Normal Mood Description: Calm Affect: Normal Speech Pattern: Clear, Appropriate - Laboratory and Diagnostics Result Diagrams: 05/26/20 04:55 05/26/20 04:55 Labs: 05/19/20 17:17 Blood Blood Culture - Final 05/19/20 17:03 Blood Blood Culture - Final 05/20/20 18:02 Sputum - Expectorated Sputum Sputum Culture - Final 05/20/20 18:02 Sputum - Expectorated Sputum - Final 05/20/20 13:34 Stool Stool Culture - Final 05/20/20 13:34 Stool - Final Laboratory WBC 11.9 X10^3/uL (3.6-10.0) H 05/26/20 04:55 RBC 3.12 X10^6/uL (3.5-5.4) L 05/26/20 04:55 Hgb 9.4 g/dL (12.0-16.0) L 05/26/20 04:55 Hct 27.7 % (36.0-47.0) L 05/26/20 04:55 MCV 88.9 fL (80.0-100.0) 05/26/20 04:55 MCH 30.2 pg (27.0-34.0) 05/26/20 04:55 MCHC 34.0 g/dL (33.0-35.0) 05/26/20 04:55 RDW 15.9 % (11.6-16.5) 05/26/20 04:55 Plt Count 419 X10^3/uL (150.0-450.0) 05/26/20 04:55 Plt Count Comment Adequate (ADEQUATE) 05/26/20 04:55 MPV 6.3 fL (7.4-11.0) L 05/26/20 04:55 Neut % (Auto) 95.0 % (42.0-75.0) H 05/26/20 04:55 Lymph % (Auto) 2.4 % (21.0-51.0) L 05/26/20 04:55 [place] % (Auto) 2.5 % (0.0-13.0) 05/26/20 04:55 Eos % (Auto) 0.0 % (0.9-2.9) L 05/26/20 04:55 Baso % (Auto) 0.1 % (0.2-1.0) L 05/26/20 04:55 Neut # (Auto) 11.3 x10^3/uL (2.2-4.8) H 05/26/20 04:55 Lymph # (Auto) 0.3 X10^3/uL (1.3-2.9) L 05/26/20 04:55 [place] # (Auto) 0.3 x10^3/uL (0.3-0.8) 05/26/20 04:55 Eos # (Auto) 0.0 x10^3/uL (0.0-0.2) 05/26/20 04:55 Baso # (Auto) 0.0 X10^3/uL (0.0-0.1) 05/26/20 04:55 Absolute Nucleated RBC 0.1 /100WBC 05/26/20 04:55 Total Counted 100 05/26/20 04:55 Neutrophils % (Manual) 96 % (39-76) H 05/26/20 04:55 Band Neutrophils % 1 % (0-10) 05/26/20 04:55 Lymphocytes % (Manual) 2 % (13-43) L 05/26/20 04:55 Monocytes % (Manual) 1 % (4-9) L 05/26/20 04:55 Plt Morphology Comment Normal (NORMAL) 05/26/20 04:55 RBC Morphology Normal (NORMAL) 05/26/20 04:55 D-Dimer 2.14 ug/ml (0.0-0.57) H* 05/26/20 05:00 Sample Site Lr 05/26/20 06:10 ABG pH 7.560 (7.35-7.45) H* 05/26/20 06:10 ABG pCO2 40.0 mmHg (35.0-45.0) 05/26/20 06:10 ABG pO2 84.0 mmHg (80.0-100.0) 05/26/20 06:10 ABG HCO3 35.8 mmol/L (22-26) H* 05/26/20 06:10 ABG O2 Saturation 98.0 % (90-100) 05/26/20 06:10 ABG Base Excess 12.5 mmol/L (-2.0-2.0) H 05/26/20 06:10 Toro Test Pos 05/26/20 06:10 A-a Gradient 308.0 mmHg 05/26/20 06:10 FiO2 62.0 05/26/20 06:10 Blood Gas Comments Thomas aditi, 05/26/20 06:10 Sodium 143 mmol/L (136-145) 05/26/20 04:55 Corrected Sodium 144 mmol/L (136-145) 05/26/20 04:55 Potassium 3.4 mmol/L (3.5-5.1) L 05/26/20 04:55 Chloride 104 mmol/L (98-107) 05/26/20 04:55 Carbon Dioxide 34.5 mmol/L (21-32) H 05/26/20 04:55 BUN 26 mg/dL (7-18) H 05/26/20 04:55 Creatinine 0.77 mg/dL (0.55-1.02) 05/26/20 04:55 Est GFR (MDRD) Af Amer > 60 (>60) 05/26/20 04:55 Est GFR (MDRD) Non-Af > 60 (>60) 05/26/20 04:55 Glucose 161 mg/dL (65-99) H 05/26/20 04:55 POC Glucose (mg/dL) 105 mg/dL (65-99) H 05/21/20 11:22 Lactic Acid 0.8 mmol/L (0.4-2.0) 05/19/20 17:17 Calcium 6.9 mg/dL (8.5-10.1) L 05/26/20 04:55 Corrected Calcium 8.0 mg/dL (8.5-10.1) L 05/26/20 04:55 Magnesium 2.2 mg/dL (1.7-2.9) 05/25/20 04:25 Ferritin 130 ng/mL (8-252) 05/25/20 04:25 Total Bilirubin 0.40 mg/dL (0.2-1.0) 05/26/20 04:55 AST 41 Units/L (15-37) H 05/26/20 04:55 ALT 20 Units/L (12-78) 05/26/20 04:55 Alkaline Phosphatase 121 Units/L (46-116) H 05/26/20 04:55 Creatine Kinase 13 Units/L (26-192) L 05/19/20 17:17 CK-MB (CK-2) < 1.0 ng/mL (0-4.0) 05/19/20 17:17 CK/CKMB % Calc 7.7 % (<4) 05/19/20 17:17 Troponin I < 0.02 ng/mL (0-1.5) 05/19/20 22:37 C-Reactive Protein < 0.50 mg/L (0-3.0) 05/26/20 04:55 B-Natriuretic Peptide 147 pg/mL (0-79) H 05/26/20 04:55 Total Protein 5.2 g/dL (6.4-8.2) L 05/26/20 04:55 Albumin 2.6 g/dL (3.4-5.0) L 05/26/20 04:55 Globulin 2.6 g/dL (2.5-4.5) 05/26/20 04:55 Albumin/Globulin Ratio 1.0 Ratio (1.1-2.1) L 05/26/20 04:55 Specimen Type Catherized urine 05/25/20 10:53 Urine Color Yellow (YELLOW) 05/25/20 10:53 Urine Appearance Clear (CLEAR) 05/25/20 10:53 Urine pH 6.0 (5.0 - 8.0) 05/25/20 10:53 Ur Specific [place] 1.020 (1.000-1.030) 05/25/20 10:53 Urine Protein 2+ (NEGATIVE) 05/25/20 10:53 Urine Glucose (UA) 2+ (NEGATIVE) 05/25/20 10:53 Urine Ketones Negative (NEGATIVE) 05/25/20 10:53 Urine Occult Blood Negative (NEGATIVE) 05/25/20 10:53 Urine Nitrite Negative (NEGATIVE) 05/25/20 10:53 Urine Bilirubin Negative (NEGATIVE) 05/25/20 10:53 Urine Urobilinogen Normal (NORMAL) 05/25/20 10:53 Ur Leukocyte Esterase Negative (NEGATIVE) 05/25/20 10:53 Urine RBC 0-2 /HPF (0-3) 05/25/20 10:53 Urine WBC None seen /HPF (0-5) 05/25/20 10:53 Ur Squamous Epith Cells Negative /HPF (NEGATIVE) 05/25/20 10:53 Urine Bacteria Trace /HPF (NEGATIVE) 05/25/20 10:53 Ur Culture Indicated? No/not indicated 05/25/20 10:53 Stool Description 25 grms loose yellow 05/20/20 13:34 Stool Description 25 grms loose yellow 05/20/20 13:34 Stl Occult Blood (IFOB) Negative (NEGATIVE) 05/20/20 13:34 Stool for White Cells Negative (NEGATIVE) 05/20/20 13:34 Stl C. diff Tox B Gene Negative (NEGATIVE) 05/20/20 13:34 Stl C. diff [id number]-NAP1-BI Negative (NEGATIVE) 05/20/20 13:34 SARS-CoV-2 (PCR) Positive (NEGATIVE) A 05/19/20 17:40 Cryptosporid parvum Ag Negative (NEGATIVE) 05/20/20 13:34 Giardia lamblia Ag Negative (NEGATIVE) 05/20/20 13:34 Influenza Type A (PCR) Negative (NEGATIVE) 05/19/20 17:40 Influenza Type B (PCR) Negative (NEGATIVE) 05/19/20 17:40 RSV (PCR) Negative (NEGATIVE) 05/19/20 17:40 Blood Type A POSITIVE 05/20/20 11:28 - Plan (1) Pneumonia due to 2019 novel coronavirus Status: Acute Plan: SUPPLEMENTAL OXYGEN, NS AT K[facility], REMDESIVIR 100MG IV DAILY, LEVAQUIN 500MG IV DAILY, FORTAZ 1G IV Q8H, ASCORBIC ACID 1500MG IV Q6H, PULMICORT NEB TX, ALBUTEROL NEB TX, BROVANA NEB TX, LIPITOR 80MG PO DAILY, TESSALON PERLES 200MG PO TID, ROBITUSSIN DM 10 ML PO QID, ZYRTEC 10MG PO DAILY, TUSSIONEX 5ML PO Q12H PRN, LOMOTIL 1 TAB PO QID PRN, LOVENOX 30MG SC BID, PEPCID 40MG PO BID, TRICOR 160MG PO DAILY, DIFLUCAN 100MG PO DAILY, IVERMECTIN, SYNTHROID 100MCG PO DAILY, MAGIC MOUTHWASH 5ML QID PRN, MELATONIN 10MG PO HS, SOLU-MEDROL 125MG IV Q6H, SINGULAIR 10MG PO HS, PROTONIX 40MG PO DAILY, THIAMINE 200MG IV BID, AND ZINC SULFATE 220MG PO BID (2) Hypoxia Status: Acute (3) CHF (congestive heart failure) Status: Acute Qualifiers: Heart failure type: unspecified Heart failure chronicity: acute on chronic Qualified Code(s): I50.9 - Heart failure, unspecified (4) Dyspnea Status: Acute Qualifiers: Dyspnea type: shortness of breath Qualified Code(s): R06.02 - Shortness of breath
[2020-05-26] MEDS: COZAAR PO SCH (21:15)
[2020-05-26] MEDS: SINGULAIR TAB 10 MG PO SCH (21:15)
[2020-05-26] MEDS: PROCARDIA XL 24-hr PO SCH (21:15)
[2020-05-26] MEDS: MELATONIN PO SCH (21:16)
[2020-05-26] MEDS: TUSSIONEX PENNKINETIC SUSP PO PRN (22:55)
[2020-05-27] MEDS: MUCOMYST 20% 200 MG/ML NEB SCH ×4 (00:04→17:48)
[2020-05-27] MEDS: ACCUNEB 1.25 MG NEBULE NEB SCH ×4 (00:04→17:48)
[2020-05-27] MEDS: NS 1000 ML 1,000 ML IV SCH (01:34)
[2020-05-27] MEDS: ASCORBIC ACID INJ MULTI-DOSE VIAL 1,500 MG in NS 100 ML IV 100 ML IV SCH ×4 (02:43→20:02)
[2020-05-27 04:35] LABS: ABG ALLEN TEST POS; ABG BASE EXCESS 12.3 mmol/L (-2.0-2.0); ABG HCO3 35.9 mmol/L (22-26)
[2020-05-27] MEDS: SOLU-Medrol 125 MG VIAL IVP SCH ×5 (05:12→23:48)
[2020-05-27] MEDS: FORTAZ or TAZICEF VIAL INJ 1 G in NS 100 ML IV + SPIKE MINIBAG* 100 ML IV SCH ×3 (05:12→21:32)
[2020-05-27] MEDS: TESSALON PERLES PO SCH ×3 (05:12→21:31)
[2020-05-27 05:27] LABS: BASOPHILS % (AUTO) 0.2 % (0.2-1.0); EOSINOPHILS % (AUTO) 0.1 % (0.9-2.9); HEMATOCRIT 25.5 % (36.0-47.0); HEMOGLOBIN 8.6 g/dL (12.0-16.0); LYMPHOCYTES # (AUTO) 0.2 X10^3/uL (1.3-2.9); LYMPHOCYTES % (AUTO) 2.4 % (21.0-51.0); MEAN CORPUSCULAR HEMOGLOBIN 30.4 pg (27.0-34.0); MEAN CORPUSCULAR HGB CONC 33.6 g/dL (33.0-35.0); MEAN CORPUSCULAR VOLUME 90.5 fL (80.0-100.0); MEAN PLATELET VOLUME 6.7 fL (7.4-11.0); MONOCYTES # (AUTO) 0.3 x10^3/uL (0.3-0.8); MONOCYTES % (AUTO) 3.2 % (0.0-13.0); NEUTROPHILS % (AUTO) 94.1 % (42.0-75.0); PLATELET COUNT 360 X10^3/uL (150.0-450.0); RED BLOOD COUNT 2.82 X10^6/uL (3.5-5.4); RED CELL DISTRIBUTION WIDTH 16.1 % (11.6-16.5); WHITE BLOOD COUNT 8.5 X10^3/uL (3.6-10.0)
[2020-05-27 05:54] LABS: ALANINE AMINOTRANSFERASE 20 Units/L (12-78); ALBUMIN 2.5 g/dL (3.4-5.0); ALKALINE PHOSPHATASE 91 Units/L (46-116); ASPARTATE AMINO TRANSFERASE 36 Units/L (15-37); BLOOD UREA NITROGEN 27 mg/dL (7-18); CARBON DIOXIDE 33.4 mmol/L (21-32); CHLORIDE 105 mmol/L (98-107); COR CA(FOR HYPOALB) 8.2 mg/dL (8.5-10.1); COR NA(FOR HYPERGLY) 147 mmol/L (136-145); CREATININE 0.84 mg/dL (0.55-1.02); SODIUM 146 mmol/L (136-145); TOTAL PROTEIN 5.1 g/dL (6.4-8.2); eGFR NON BLACK RACES > 60 (>60)
--- NOTE | 2020-05-27 06:15 | RAD ---
HISTORYShortness of breathSTUDYChest AP portableCOMPARISON8 May 2020FINDINGSThe heart remains enlarged. Bilateral interstitial and some patchy airspace disease again identified but slightly improved when compared to the prior examination even considering a difference in technique. There is a focus of subsegmental atelectasis peripherally in the left midlung. No pleural effusions are identified. Bony thorax is unremarkable.IMPRESSIONNo change cardiomegaly without congestive heart failureSome improvement in the bilateral interstitial and patchy airspace disease being followedElectronically signed by: ALTHEA ETIENNE (May 27, 2020 06:13:44)
[2020-05-27 06:48] LABS: BAND NEUTROPHILS % 3 % (0-10); PLATELET MORPHOLOGY COMMENT NORMAL (NORMAL)
[2020-05-27] MEDS: LIPITOR TAB 80 MG PO SCH (08:12)
[2020-05-27] MEDS: DIFLUCAN PO SCH (08:12)
[2020-05-27] MEDS: PROTONIX TAB 40 MG PO SCH (08:12)
[2020-05-27] MEDS: PEPCID TAB 40 MG PO SCH ×2 (08:12→20:03)
[2020-05-27] MEDS: ZINC SULFATE PO SCH ×2 (08:13→20:04)
[2020-05-27] MEDS: SYNTHROID 100 mcg TAB PO SCH (08:13)
[2020-05-27] MEDS: VITAMIN D3 125 mcg (5,000 UNITS) PO SCH (08:13)
[2020-05-27] MEDS: ROBITUSSIN DM PO SCH ×4 (08:13→20:05)
[2020-05-27] MEDS: THIAMINE HCL INJ IVP SCH ×2 (08:14→20:05)
[2020-05-27] MEDS: PULMICORT NEB TX 0.5 MG NEB SCH ×2 (09:20→20:29)
[2020-05-27] MEDS: LEVAQUIN PREMIX IV 500 MG 500 MG/100 ML BAG IV SCH (09:23)
[2020-05-27] MEDS: LOVENOX INJ 40 MG SYR SC SCH (09:24)
[2020-05-27] MEDS: BROVANA IN SCH ×2 (09:25→20:29)
[2020-05-27] MEDS: ZyrTEC TAB 10 MG PO SCH (11:44)
[2020-05-27] MEDS: TRICOR TAB 160 MG PO SCH (11:44)
[2020-05-27] MEDS: XANAX PO PRN ×2 (15:06→20:04)
[2020-05-27] MEDS: MELATONIN PO SCH (20:02)
[2020-05-27] MEDS: PROCARDIA XL 24-hr PO SCH (20:03)
[2020-05-27] MEDS: COZAAR PO SCH (20:04)
[2020-05-27] MEDS: SINGULAIR TAB 10 MG PO SCH (20:06)
[2020-05-27] MEDS: TUSSIONEX PENNKINETIC SUSP PO PRN (21:38)
[2020-05-28] MEDS: MUCOMYST 20% 200 MG/ML NEB SCH ×4 (00:15→17:00)
[2020-05-28] MEDS: ACCUNEB 1.25 MG NEBULE NEB SCH ×4 (00:15→17:00)
[2020-05-28] MEDS: ASCORBIC ACID INJ MULTI-DOSE VIAL 1,500 MG in NS 100 ML IV 100 ML IV SCH ×4 (03:12→20:22)
[2020-05-28] MEDS: NS 1000 ML 1,000 ML IV SCH (03:13)
[2020-05-28 04:45] LABS: BASOPHILS % (AUTO) 0.1 % (0.2-1.0); HEMATOCRIT 26.6 % (36.0-47.0); HEMOGLOBIN 8.8 g/dL (12.0-16.0); LYMPHOCYTES # (AUTO) 0.2 X10^3/uL (1.3-2.9); LYMPHOCYTES % (AUTO) 1.7 % (21.0-51.0); MEAN CORPUSCULAR HEMOGLOBIN 29.9 pg (27.0-34.0); MEAN CORPUSCULAR HGB CONC 33.2 g/dL (33.0-35.0); MEAN PLATELET VOLUME 6.5 fL (7.4-11.0); MONOCYTES # (AUTO) 0.2 x10^3/uL (0.3-0.8); MONOCYTES % (AUTO) 2.3 % (0.0-13.0); NEUTROPHILS # (AUTO) 9.6 x10^3/uL (2.2-4.8); NEUTROPHILS % (AUTO) 95.9 % (42.0-75.0); PLATELET COUNT 305 X10^3/uL (150.0-450.0); RED BLOOD COUNT 2.95 X10^6/uL (3.5-5.4); RED CELL DISTRIBUTION WIDTH 16.4 % (11.6-16.5)
[2020-05-28 05:12] LABS: ALANINE AMINOTRANSFERASE 20 Units/L (12-78); ALBUMIN 2.6 g/dL (3.4-5.0); ALKALINE PHOSPHATASE 86 Units/L (46-116); ASPARTATE AMINO TRANSFERASE 30 Units/L (15-37); BLOOD UREA NITROGEN 28 mg/dL (7-18); CALCIUM 7.3 mg/dL (8.5-10.1); CARBON DIOXIDE 29.5 mmol/L (21-32); CHLORIDE 106 mmol/L (98-107); COR CA(FOR HYPOALB) 8.4 mg/dL (8.5-10.1); COR NA(FOR HYPERGLY) 146 mmol/L (136-145); CREATININE 0.89 mg/dL (0.55-1.02); SODIUM 144 mmol/L (136-145); TOTAL PROTEIN 5.2 g/dL (6.4-8.2); eGFR NON BLACK RACES > 60 (>60)
[2020-05-28] MEDS: FORTAZ or TAZICEF VIAL INJ 1 G in NS 100 ML IV + SPIKE MINIBAG* 100 ML IV SCH ×3 (05:13→22:13)
[2020-05-28] MEDS: TESSALON PERLES PO SCH ×3 (05:14→22:13)
[2020-05-28] MEDS: SOLU-Medrol 125 MG VIAL IVP SCH ×4 (05:15→23:57)
[2020-05-28 05:17] LABS: ABG BASE EXCESS 9.2 mmol/L (-2.0-2.0); ABG HCO3 32.6 mmol/L (22-26)
[2020-05-28 05:18] LABS: ABG ALLEN TEST POS
[2020-05-28 06:04] LABS: PLATELET MORPHOLOGY COMMENT NORMAL (NORMAL)
--- NOTE | 2020-05-28 06:23 | RAD ---
HISTORYSOBSTUDYCHEST, 1 [id number]/2021FINDINGSThe trachea is midline. The cardiac silhouette is mildly enlarged.. Bilateral interstitial and patchy airspace disease again noted. No pneumothorax.. The bony thorax is unremarkable.IMPRESSIONStable portable chestElectronically signed by: Kannan Connor (May 28, 2020 06:21:32)
[2020-05-28] MEDS: PULMICORT NEB TX 0.5 MG NEB SCH ×2 (08:30→22:10)
[2020-05-28] MEDS: BROVANA IN SCH ×2 (08:35→22:00)
[2020-05-28] MEDS: LEVAQUIN PREMIX IV 500 MG 500 MG/100 ML BAG IV SCH (09:38)
[2020-05-28] MEDS: LIPITOR TAB 80 MG PO SCH (09:39)
[2020-05-28] MEDS: VITAMIN D3 125 mcg (5,000 UNITS) PO SCH (09:39)
[2020-05-28] MEDS: ZyrTEC TAB 10 MG PO SCH (09:39)
[2020-05-28] MEDS: DIFLUCAN PO SCH (09:39)
[2020-05-28] MEDS: ZINC SULFATE PO SCH ×2 (09:39→20:20)
[2020-05-28] MEDS: PEPCID TAB 40 MG PO SCH ×2 (09:40→20:19)
[2020-05-28] MEDS: PROTONIX TAB 40 MG PO SCH (09:40)
[2020-05-28] MEDS: LOVENOX INJ 40 MG SYR SC SCH (09:40)
[2020-05-28] MEDS: THIAMINE HCL INJ IVP SCH ×2 (09:41→20:19)
[2020-05-28] MEDS: TRICOR TAB 160 MG PO SCH (09:41)
[2020-05-28] MEDS: ROBITUSSIN DM PO SCH ×4 (09:41→20:18)
[2020-05-28] MEDS: SYNTHROID 100 mcg TAB PO SCH (09:41)
[2020-05-28] MEDS: XANAX PO PRN ×2 (10:58→20:22)
--- NOTE | 2020-05-28 10:58 | PCM.PROG ---
Progress Note - Progress Note for Day of Date of Exam: 05/27/20 - Subjective Subjective: IS BEING TREATED FOR PNEUMONIA DUE TO COVID-19, HYPOXIA, CHF, AND DYSPNEA. TODAY, SHE IS ALERT AND ORIENTED, LYING IN BED ON MORNING ROUNDS. SHE CONTINUES WITH A NON-PRODUCTIVE COUGH, SHORTNESS OF BREATH, AND WEAKNESS THIS MORNING. SHE REPORTS IMPROVEMENT IN SYMPTOMS TODAY. SHE IS C URRENTLY ON NASAL CANNULA AT 5 LPM. HER SATURATIONS HAVE BEEN 90-95% THIS MORNING AND THROUGHOUT THE NIGHT. ON EXAMINATION, HEART IS REGULAR IN RATE AND RHYTHM. BILATERAL LUNGS ARE NOTED WITH RALES THROUGHOUT. ABDOMEN IS ROUND, SOFT, AND NON-TENDER WITH NORMAL BOWEL SOUNDS NOTED IN ALL QUADRANTS. HER VITALS THIS MORNING ARE: 98.2-90-23-93%-129/64. LABS WERE OBTAINED. ABNORMAL LAB VALUES INCLUDE THE FOLLOWING: RBC 2.82, HGB 8.6, HCT 25.5, D-DIMER 1.92, POTASSIUM 3.1, BUN 28, GLUCOSE 165, CALCIUM 7.3, BNP 81.5, TOTAL PROTEIN 5.2, ALBUMIN 2.6. AN ABG WAS OBTAINED AND REVEALED: PH 7.550, PC02 41, [02 58, HC03 35.9, 02 SAT 93, BASE EXCESS 12.3, A-A GRADIENT 176, FI02 40. BLOOD, STOOL, AND SPUTUM CULTURES ARE NEGATIVE WITH THE EXCEPTION OF A FEW YEAST IN STPUTUM CULTURE. A CHEST XRAY WAS OBTAINED AND REVEALED: No change cardiomegaly without congestive heart failure. Some improvement in the bilateral interstitial and patchy airspace disease being followed. SHE IS CURRENTLY RECEIVING NS AT [facility], REMDESIVIR 100MG IV DAILY, LEVAQUIN 500MG IV DAILY, FORTAZ 1G IV Q8H, ASCORBIC ACID 1500MG IV Q6H, PULMICORT NEB TX, ALBUTEROL NEB TX, BROVANA NEB TX, LIPITOR 80MG PO DAILY, TESSALON PERLES 200MG PO TID, ROBITUSSIN DM 10 ML PO QID, ZYRTEC 10MG PO DAILY, TUSSIONEX 5ML PO Q12H PRN, LOMOTIL 1 TAB PO QID PRN, LOVENOX 30MG SC BID, PEPCID 40MG PO BID, TRICOR 160MG PO DAILY, DIFLUCAN 100MG PO DAILY, IVERMECTIN, SYNTHROID 100MCG PO DAILY, MAGIC MOUTHWASH 5ML QID PRN, MELATONIN 10MG PO HS, SOLU-MEDROL 125MG IV Q6H, SINGULAIR 10MG PO HS, PROTONIX 40MG PO DAILY, THIAMINE 200MG IV BID, AND ZINC SULFATE 220MG PO BID. WE WILL CONTINUE WITH CURRENT PLAN OF CARE TODAY AND CONTINUE TO DECREASE OXYGEN TOLERATED. OTHERWISE, WE PLAN TO FOLLOW UP WITH AM LABS, CHEST XRAY, ABG, AND CONTINUE TO MONITOR. TIME SPENT ON CLINICAL ASSESSMENT, REVIEWING LABS AND IMAGING, DECISION MAKING, AND DOCUMENTATION GREATER THAN 75 MINUTES. - Past Medical Family Social History Past Med/Fam/Surg Hx: No changes since H&P Allergies: Allergies cefdinir Allergy (Mild, Verified 05/30/17 17:02) patient states it makes her itch all over and grabs at her hands. - Review of Systems ROS: No change since H&P - Vital Signs and I&O's Vital Signs: Temperature 98 F Pulse Rate [Left] 59 Pulse Rate 90 Respiratory Rate 20 Blood Pressure [Left Arm] 147/68 Blood Pressure [Right Arm] 166/71 Blood Pressure 137/63 O2 Sat by Pulse Oximetry 92 Intake and Output: Intake & Output 05/25/20 05/26/20 05/27/20 05/28/20 11:59 11:59 11:59 11:59 Intake Total 1080 / 1080 1624 / 1624 2320 / 2320 1404 / 1404 Output Total 1625 / 1625 825 / 825 1050 / 1050 Balance 1080 / 1080 -1 / -1 1495 / 1495 354 / 354 - Physical Exam Oriented: Normal Eyes: Normal Ear: Normal Nose: Normal Throat: Normal Respiratory: Generalized, Diminished, Rales Cardiovascular: Normal : Normal Auscultation: Bowel Sounds: Normal Tenderness: Normal Skin: Normal Musculoskeletal: Normal Psychiatric: Normal Mood Description: Calm Affect: Normal Speech Pattern: Clear, Appropriate - Laboratory and Diagnostics Result Diagrams: 05/28/20 04:10 05/28/20 04:10 Labs: 05/19/20 17:17 Blood Blood Culture - Final 05/19/20 17:03 Blood Blood Culture - Final 05/20/20 18:02 Sputum - Expectorated Sputum Sputum Culture - Final 05/20/20 18:02 Sputum - Expectorated Sputum - Final 05/20/20 13:34 Stool Stool Culture - Final 05/20/20 13:34 Stool - Final Laboratory WBC 10.0 X10^3/uL (3.6-10.0) 05/28/20 04:10 RBC 2.95 X10^6/uL (3.5-5.4) L 05/28/20 04:10 Hgb 8.8 g/dL (12.0-16.0) L 05/28/20 04:10 Hct 26.6 % (36.0-47.0) L 05/28/20 04:10 MCV 90.0 fL (80.0-100.0) 05/28/20 04:10 MCH 29.9 pg (27.0-34.0) 05/28/20 04:10 MCHC 33.2 g/dL (33.0-35.0) 05/28/20 04:10 RDW 16.4 % (11.6-16.5) 05/28/20 04:10 Plt Count 305 X10^3/uL (150.0-450.0) 05/28/20 04:10 Plt Count Comment Adequate (ADEQUATE) 05/28/20 04:10 MPV 6.5 fL (7.4-11.0) L 05/28/20 04:10 Neut % (Auto) 95.9 % (42.0-75.0) H 05/28/20 04:10 Lymph % (Auto) 1.7 % (21.0-51.0) L 05/28/20 04:10 [place] % (Auto) 2.3 % (0.0-13.0) 05/28/20 04:10 Eos % (Auto) 0.0 % (0.9-2.9) L 05/28/20 04:10 Baso % (Auto) 0.1 % (0.2-1.0) L 05/28/20 04:10 Neut # (Auto) 9.6 x10^3/uL (2.2-4.8) H 05/28/20 04:10 Lymph # (Auto) 0.2 X10^3/uL (1.3-2.9) L 05/28/20 04:10 [place] # (Auto) 0.2 x10^3/uL (0.3-0.8) L 05/28/20 04:10 Eos # (Auto) 0.0 x10^3/uL (0.0-0.2) 05/28/20 04:10 Baso # (Auto) 0.0 X10^3/uL (0.0-0.1) 05/28/20 04:10 Absolute Nucleated RBC 0.3 /100WBC 05/28/20 04:10 Total Counted 100 05/28/20 04:10 Neutrophils % (Manual) 97 % (39-76) H 05/28/20 04:10 Band Neutrophils % 3 % (0-10) 05/27/20 04:15 Lymphocytes % (Manual) 3 % (13-43) L 05/28/20 04:10 Monocytes % (Manual) 1 % (4-9) L 05/27/20 04:15 Plt Morphology Comment Normal (NORMAL) 05/28/20 04:10 RBC Morphology Normal (NORMAL) 05/28/20 04:10 D-Dimer 1.69 ug/ml (0.0-0.57) H* 05/28/20 04:10 Sample Site Rrad 05/28/20 05:10 ABG pH 7.530 (7.35-7.45) H 05/28/20 05:10 ABG pCO2 39.0 mmHg (35.0-45.0) 05/28/20 05:10 ABG pO2 65.0 mmHg (80.0-100.0) L 05/28/20 05:10 ABG HCO3 32.6 mmol/L (22-26) H* 05/28/20 05:10 ABG O2 Saturation 95.0 % (90-100) 05/28/20 05:10 ABG Base Excess 9.2 mmol/L (-2.0-2.0) H 05/28/20 05:10 Toro Test Pos 05/28/20 05:10 A-a Gradient 114.0 mmHg 05/28/20 05:10 FiO2 32.0 05/28/20 05:10 Blood Gas Comments [facility] well 05/28/20 05:10 Sodium 144 mmol/L (136-145) 05/28/20 04:10 Corrected Sodium 146 mmol/L (136-145) H 05/28/20 04:10 Potassium 3.1 mmol/L (3.5-5.1) L 05/28/20 04:10 Chloride 106 mmol/L (98-107) 05/28/20 04:10 Carbon Dioxide 29.5 mmol/L (21-32) 05/28/20 04:10 BUN 28 mg/dL (7-18) H 05/28/20 04:10 Creatinine 0.89 mg/dL (0.55-1.02) 05/28/20 04:10 Est GFR (MDRD) Af Amer > 60 (>60) 05/28/20 04:10 Est GFR (MDRD) Non-Af > 60 (>60) 05/28/20 04:10 Glucose 165 mg/dL (65-99) H 05/28/20 04:10 POC Glucose (mg/dL) 105 mg/dL (65-99) H 05/21/20 11:22 Lactic Acid 0.8 mmol/L (0.4-2.0) 05/19/20 17:17 Calcium 7.3 mg/dL (8.5-10.1) L 05/28/20 04:10 Corrected Calcium 8.4 mg/dL (8.5-10.1) L 05/28/20 04:10 Magnesium 2.3 mg/dL (1.7-2.9) 05/28/20 04:10 Ferritin 130 ng/mL (8-252) 05/25/20 04:25 Total Bilirubin 0.30 mg/dL (0.2-1.0) 05/28/20 04:10 AST 30 Units/L (15-37) 05/28/20 04:10 ALT 20 Units/L (12-78) 05/28/20 04:10 Alkaline Phosphatase 86 Units/L (46-116) 05/28/20 04:10 Creatine Kinase 13 Units/L (26-192) L 05/19/20 17:17 CK-MB (CK-2) < 1.0 ng/mL (0-4.0) 05/19/20 17:17 CK/CKMB % Calc 7.7 % (<4) 05/19/20 17:17 Troponin I < 0.02 ng/mL (0-1.5) 05/19/20 22:37 C-Reactive Protein < 0.50 mg/L (0-3.0) 05/28/20 04:10 B-Natriuretic Peptide 81.5 pg/mL (0-79) H 05/28/20 04:10 Total Protein 5.2 g/dL (6.4-8.2) L 05/28/20 04:10 Albumin 2.6 g/dL (3.4-5.0) L 05/28/20 04:10 Globulin 2.6 g/dL (2.5-4.5) 05/28/20 04:10 Albumin/Globulin Ratio 1.0 Ratio (1.1-2.1) L 05/28/20 04:10 Specimen Type Catherized urine 05/25/20 10:53 Urine Color Yellow (YELLOW) 05/25/20 10:53 Urine Appearance Clear (CLEAR) 05/25/20 10:53 Urine pH 6.0 (5.0 - 8.0) 05/25/20 10:53 Ur Specific [place] 1.020 (1.000-1.030) 05/25/20 10:53 Urine Protein 2+ (NEGATIVE) 05/25/20 10:53 Urine Glucose (UA) 2+ (NEGATIVE) 05/25/20 10:53 Urine Ketones Negative (NEGATIVE) 05/25/20 10:53 Urine Occult Blood Negative (NEGATIVE) 05/25/20 10:53 Urine Nitrite Negative (NEGATIVE) 05/25/20 10:53 Urine Bilirubin Negative (NEGATIVE) 05/25/20 10:53 Urine Urobilinogen Normal (NORMAL) 05/25/20 10:53 Ur Leukocyte Esterase Negative (NEGATIVE) 05/25/20 10:53 Urine RBC 0-2 /HPF (0-3) 05/25/20 10:53 Urine WBC None seen /HPF (0-5) 05/25/20 10:53 Ur Squamous Epith Cells Negative /HPF (NEGATIVE) 05/25/20 10:53 Urine Bacteria Trace /HPF (NEGATIVE) 05/25/20 10:53 Ur Culture Indicated? No/not indicated 05/25/20 10:53 Stool Description 25 grms loose yellow 05/20/20 13:34 Stool Description 25 grms loose yellow 05/20/20 13:34 Stl Occult Blood (IFOB) Negative (NEGATIVE) 05/20/20 13:34 Stool for White Cells Negative (NEGATIVE) 05/20/20 13:34 Stl C. diff Tox B Gene Negative (NEGATIVE) 05/20/20 13:34 Stl C. diff [id number]-BI Negative (NEGATIVE) 05/20/20 13:34 SARS-CoV-2 (PCR) Positive (NEGATIVE) A 05/19/20 17:40 Cryptosporid parvum Ag Negative (NEGATIVE) 05/20/20 13:34 Giardia lamblia Ag Negative (NEGATIVE) 05/20/20 13:34 Influenza Type A (PCR) Negative (NEGATIVE) 05/19/20 17:40 Influenza Type B (PCR) Negative (NEGATIVE) 05/19/20 17:40 RSV (PCR) Negative (NEGATIVE) 05/19/20 17:40 Blood Type A POSITIVE 05/20/20 11:28 - Plan (1) Pneumonia due to 2019 novel coronavirus Status: Acute Plan: SUPPLEMENTAL OXYGEN, NS AT KVO, REMDESIVIR 100MG IV DAILY, LEVAQUIN 500MG IV DAILY, FORTAZ 1G IV Q8H, ASCORBIC ACID 1500MG IV Q6H, PULMICORT NEB TX, ALBUTEROL NEB TX, BROVANA NEB TX, LIPITOR 80MG PO DAILY, TESSALON PERLES 200MG PO TID, ROBITUSSIN DM 10 ML PO QID, ZYRTEC 10MG PO DAILY, TUSSIONEX 5ML PO Q12H PRN, LOMOTIL 1 TAB PO QID PRN, LOVENOX 30MG SC BID, PEPCID 40MG PO BID, TRICOR 160MG PO DAILY, DIFLUCAN 100MG PO DAILY, IVERMECTIN, SYNTHROID 100MCG PO DAILY, MAGIC MOUTHWASH 5ML QID PRN, MELATONIN 10MG PO HS, SOLU-MEDROL 125MG IV Q6H, SINGULAIR 10MG PO HS, PROTONIX 40MG PO DAILY, THIAMINE 200MG IV BID, AND ZINC SULFATE 220MG PO BID (2) Hypoxia Status: Acute (3) CHF (congestive heart failure) Status: Acute Qualifiers: Heart failure type: unspecified Heart failure chronicity: acute on chronic Qualified Code(s): I50.9 - Heart failure, unspecified (4) Dyspnea Status: Acute Qualifiers: Dyspnea type: shortness of breath Qualified Code(s): R06.02 - Shortness of breath
--- NOTE | 2020-05-28 11:06 | PCM.PROG ---
Progress Note - Progress Note for Day of Date of Exam: 05/28/20 - Subjective Subjective: IS BEING TREATED FOR PNEUMONIA DUE TO COVID-19, HYPOXIA, CHF, AND DYSPNEA. TODAY, SHE IS ALERT AND ORIENTED, LYING IN BED ON MORNING ROUNDS. SHE CONTINUES WITH A NON-PRODUCTIVE COUGH, SHORTNESS OF BREATH, AND WEAKNESS THIS MORNING. SHE REPORTS IMPROVEMENT IN SYMPTOMS TODAY. SHE IS C URRENTLY ON NASAL CANNULA AT 3 LPM. HER SATURATIONS HAVE BEEN 91-94% THIS MORNING AND THROUGHOUT THE NIGHT. ON EXAMINATION, HEART IS REGULAR IN RATE AND RHYTHM. BILATERAL LUNGS ARE NOTED WITH RALES THROUGHOUT. ABDOMEN IS ROUND, SOFT, AND NON-TENDER WITH NORMAL BOWEL SOUNDS NOTED IN ALL QUADRANTS. HER VITALS THIS MORNING ARE: 98.0-90-20-92%-137/63. LABS WERE OBTAINED. ABNORMAL LAB VALUES INCLUDE THE FOLLOWING: RBC 2.95, HGB 8.8, HCT 26.6, D-DIMER 1.69, POTASSIUM 3.1, BUN 28, GLUCOSE 165, CALCIUM 7.3, BNP 81.50, TOTAL PROTEIN 5.2, ALBUMIN 2.6. AN ABG WAS OBTAINED AND REVEALED: PH 7.530, PC02 39, P02 65, HC03 32.6, 02 SAT 95, BASE EXCESS 9.2, A-A GRADIENT 114, FI02 32. BLOOD, STOOL, AND SPUTUM CULTURES ARE NEGATIVE WITH THE EXCEPTION OF A FEW YEAST IN STPUTUM CULTURE. A CHEST XRAY WAS OBTAINED AND REVEALED: The trachea is midline. The cardiac silhouette is mildly enlarged. Bilateral interstitial and patchy airspace disease again noted. No pneumothorax. The bony thorax is unremarkable. SHE IS CURRENTLY RECEIVING NS AT [facility], REMDESIVIR 100MG IV DAILY, LEVAQUIN 500MG IV DAILY, FORTAZ 1G IV Q8H, ASCORBIC ACID 1500MG IV Q6H, PULMICORT NEB TX, ALBUTEROL NEB TX, BROVANA NEB TX, LIPITOR 80MG PO DAILY, TESSALON PERLES 200MG PO TID, ROBITUSSIN DM 10 ML PO QID, ZYRTEC 10MG PO DAILY, TUSSIONEX 5ML PO Q12H PRN, LOMOTIL 1 TAB PO QID PRN, LOVENOX 30MG SC BID, PEPCID 40MG PO BID, TRICOR 160MG PO DAILY, DIFLUCAN 100MG PO DAILY, IVERMECTIN, SYNTHROID 100MCG PO DAILY, MAGIC MOUTHWASH 5ML QID PRN, MELATONIN 10MG PO HS, SOLU-MEDROL 125MG IV Q6H, SINGULAIR 10MG PO HS, PROTONIX 40MG PO DAILY, THIAMINE 200MG IV BID, AND ZINC SULFATE 220MG PO BID. WE WILL CONTINUE WITH CURRENT PLAN OF CARE TODAY AND CONTINUE TO DECREASE OXYGEN TOLERATED. OTHERWISE, WE PLAN TO FOLLOW UP WITH AM LABS, CHEST XRAY, ABG, AND CONTINUE TO MONITOR. TIME SPENT ON CLINICAL ASSESSMENT, REVIEWING LABS AND IMAGING, DECISION MAKING, AND DOCUMENTATION GREATER THAN 75 MINUTES. - Past Medical Family Social History Past Med/Fam/Surg Hx: No changes since H&P Allergies: Allergies cefdinir Allergy (Mild, Verified 05/30/17 17:02) patient states it makes her itch all over and grabs at her hands. - Review of Systems ROS: No change since H&P - Vital Signs and I&O's Vital Signs: Temperature 98 F Pulse Rate [Left] 59 Pulse Rate 90 Respiratory Rate 20 Blood Pressure [Left Arm] 147/68 Blood Pressure [Right Arm] 166/71 Blood Pressure 137/63 O2 Sat by Pulse Oximetry 92 Intake and Output: Intake & Output 05/25/20 05/26/20 05/27/20 05/28/20 11:59 11:59 11:59 11:59 Intake Total 1080 / 1080 1624 / 1624 2320 / 2320 1404 / 1404 Output Total 1625 / 1625 825 / 825 1050 / 1050 Balance 1080 / 1080 -1 / -1 1495 / 1495 354 / 354 - Physical Exam Oriented: Normal Eyes: Normal Ear: Normal Nose: Normal Throat: Normal Respiratory: Generalized, Diminished, Rales Cardiovascular: Normal : Normal Auscultation: Bowel Sounds: Normal Palpation: Normal Tenderness: Normal Skin: Normal Musculoskeletal: Normal Psychiatric: Normal Mood Description: Calm Affect: Normal Speech Pattern: Clear, Appropriate - Laboratory and Diagnostics Result Diagrams: 05/28/20 04:10 05/28/20 04:10 Labs: 05/19/20 17:17 Blood Blood Culture - Final 05/19/20 17:03 Blood Blood Culture - Final 05/20/20 18:02 Sputum - Expectorated Sputum Sputum Culture - Final 05/20/20 18:02 Sputum - Expectorated Sputum - Final 05/20/20 13:34 Stool Stool Culture - Final 05/20/20 13:34 Stool - Final Laboratory WBC 10.0 X10^3/uL (3.6-10.0) 05/28/20 04:10 RBC 2.95 X10^6/uL (3.5-5.4) L 05/28/20 04:10 Hgb 8.8 g/dL (12.0-16.0) L 05/28/20 04:10 Hct 26.6 % (36.0-47.0) L 05/28/20 04:10 MCV 90.0 fL (80.0-100.0) 05/28/20 04:10 MCH 29.9 pg (27.0-34.0) 05/28/20 04:10 MCHC 33.2 g/dL (33.0-35.0) 05/28/20 04:10 RDW 16.4 % (11.6-16.5) 05/28/20 04:10 Plt Count 305 X10^3/uL (150.0-450.0) 05/28/20 04:10 Plt Count Comment Adequate (ADEQUATE) 05/28/20 04:10 MPV 6.5 fL (7.4-11.0) L 05/28/20 04:10 Neut % (Auto) 95.9 % (42.0-75.0) H 05/28/20 04:10 Lymph % (Auto) 1.7 % (21.0-51.0) L 05/28/20 04:10 Boyle % (Auto) 2.3 % (0.0-13.0) 05/28/20 04:10 Eos % (Auto) 0.0 % (0.9-2.9) L 05/28/20 04:10 Baso % (Auto) 0.1 % (0.2-1.0) L 05/28/20 04:10 Neut # (Auto) 9.6 x10^3/uL (2.2-4.8) H 05/28/20 04:10 Lymph # (Auto) 0.2 X10^3/uL (1.3-2.9) L 05/28/20 04:10 Boyle # (Auto) 0.2 x10^3/uL (0.3-0.8) L 05/28/20 04:10 Eos # (Auto) 0.0 x10^3/uL (0.0-0.2) 05/28/20 04:10 Baso # (Auto) 0.0 X10^3/uL (0.0-0.1) 05/28/20 04:10 Absolute Nucleated RBC 0.3 /100WBC 05/28/20 04:10 Total Counted 100 05/28/20 04:10 Neutrophils % (Manual) 97 % (39-76) H 05/28/20 04:10 Band Neutrophils % 3 % (0-10) 05/27/20 04:15 Lymphocytes % (Manual) 3 % (13-43) L 05/28/20 04:10 Monocytes % (Manual) 1 % (4-9) L 05/27/20 04:15 Plt Morphology Comment Normal (NORMAL) 05/28/20 04:10 RBC Morphology Normal (NORMAL) 05/28/20 04:10 D-Dimer 1.69 ug/ml (0.0-0.57) H* 05/28/20 04:10 Sample Site Rrad 05/28/20 05:10 ABG pH 7.530 (7.35-7.45) H 05/28/20 05:10 ABG pCO2 39.0 mmHg (35.0-45.0) 05/28/20 05:10 ABG pO2 65.0 mmHg (80.0-100.0) L 05/28/20 05:10 ABG HCO3 32.6 mmol/L (22-26) H* 05/28/20 05:10 ABG O2 Saturation 95.0 % (90-100) 05/28/20 05:10 ABG Base Excess 9.2 mmol/L (-2.0-2.0) H 05/28/20 05:10 Toro Test Pos 05/28/20 05:10 A-a Gradient 114.0 mmHg 05/28/20 05:10 FiO2 32.0 05/28/20 05:10 Blood Gas Comments Thomas well ah 05/28/20 05:10 Sodium 144 mmol/L (136-145) 05/28/20 04:10 Corrected Sodium 146 mmol/L (136-145) H 05/28/20 04:10 Potassium 3.1 mmol/L (3.5-5.1) L 05/28/20 04:10 Chloride 106 mmol/L (98-107) 05/28/20 04:10 Carbon Dioxide 29.5 mmol/L (21-32) 05/28/20 04:10 BUN 28 mg/dL (7-18) H 05/28/20 04:10 Creatinine 0.89 mg/dL (0.55-1.02) 05/28/20 04:10 Est GFR (MDRD) Af Amer > 60 (>60) 05/28/20 04:10 Est GFR (MDRD) Non-Af > 60 (>60) 05/28/20 04:10 Glucose 165 mg/dL (65-99) H 05/28/20 04:10 POC Glucose (mg/dL) 105 mg/dL (65-99) H 05/21/20 11:22 Lactic Acid 0.8 mmol/L (0.4-2.0) 05/19/20 17:17 Calcium 7.3 mg/dL (8.5-10.1) L 05/28/20 04:10 Corrected Calcium 8.4 mg/dL (8.5-10.1) L 05/28/20 04:10 Magnesium 2.3 mg/dL (1.7-2.9) 05/28/20 04:10 Ferritin 130 ng/mL (8-252) 05/25/20 04:25 Total Bilirubin 0.30 mg/dL (0.2-1.0) 05/28/20 04:10 AST 30 Units/L (15-37) 05/28/20 04:10 ALT 20 Units/L (12-78) 05/28/20 04:10 Alkaline Phosphatase 86 Units/L (46-116) 05/28/20 04:10 Creatine Kinase 13 Units/L (26-192) L 05/19/20 17:17 CK-MB (CK-2) < 1.0 ng/mL (0-4.0) 05/19/20 17:17 CK/CKMB % Calc 7.7 % (<4) 05/19/20 17:17 Troponin I < 0.02 ng/mL (0-1.5) 05/19/20 22:37 C-Reactive Protein < 0.50 mg/L (0-3.0) 05/28/20 04:10 B-Natriuretic Peptide 81.5 pg/mL (0-79) H 05/28/20 04:10 Total Protein 5.2 g/dL (6.4-8.2) L 05/28/20 04:10 Albumin 2.6 g/dL (3.4-5.0) L 05/28/20 04:10 Globulin 2.6 g/dL (2.5-4.5) 05/28/20 04:10 Albumin/Globulin Ratio 1.0 Ratio (1.1-2.1) L 05/28/20 04:10 Specimen Type Catherized urine 05/25/20 10:53 Urine Color Yellow (YELLOW) 05/25/20 10:53 Urine Appearance Clear (CLEAR) 05/25/20 10:53 Urine pH 6.0 (5.0 - 8.0) 05/25/20 10:53 Ur Specific Catron 1.020 (1.000-1.030) 05/25/20 10:53 Urine Protein 2+ (NEGATIVE) 05/25/20 10:53 Urine Glucose (UA) 2+ (NEGATIVE) 05/25/20 10:53 Urine Ketones Negative (NEGATIVE) 05/25/20 10:53 Urine Occult Blood Negative (NEGATIVE) 05/25/20 10:53 Urine Nitrite Negative (NEGATIVE) 05/25/20 10:53 Urine Bilirubin Negative (NEGATIVE) 05/25/20 10:53 Urine Urobilinogen Normal (NORMAL) 05/25/20 10:53 Ur Leukocyte Esterase Negative (NEGATIVE) 05/25/20 10:53 Urine RBC 0-2 /HPF (0-3) 05/25/20 10:53 Urine WBC None seen /HPF (0-5) 05/25/20 10:53 Ur Squamous Epith Cells Negative /HPF (NEGATIVE) 05/25/20 10:53 Urine Bacteria Trace /HPF (NEGATIVE) 05/25/20 10:53 Ur Culture Indicated? No/not indicated 05/25/20 10:53 Stool Description 25 grms loose yellow 05/20/20 13:34 Stool Description 25 grms loose yellow 05/20/20 13:34 Stl Occult Blood (IFOB) Negative (NEGATIVE) 05/20/20 13:34 Stool for White Cells Negative (NEGATIVE) 05/20/20 13:34 Stl C. diff Tox B Gene Negative (NEGATIVE) 05/20/20 13:34 Stl C. diff [id number] Negative (NEGATIVE) 05/20/20 13:34 SARS-CoV-2 (PCR) Positive (NEGATIVE) A 05/19/20 17:40 Cryptosporid parvum Ag Negative (NEGATIVE) 05/20/20 13:34 Giardia lamblia Ag Negative (NEGATIVE) 05/20/20 13:34 Influenza Type A (PCR) Negative (NEGATIVE) 05/19/20 17:40 Influenza Type B (PCR) Negative (NEGATIVE) 05/19/20 17:40 RSV (PCR) Negative (NEGATIVE) 05/19/20 17:40 Blood Type A POSITIVE 05/20/20 11:28 - Plan (1) Pneumonia due to 2019 novel coronavirus Status: Acute Plan: SUPPLEMENTAL OXYGEN, NS AT [facility], REMDESIVIR 100MG IV DAILY, LEVAQUIN 500MG IV DAILY, FORTAZ 1G IV Q8H, ASCORBIC ACID 1500MG IV Q6H, PULMICORT NEB TX, ALBUTEROL NEB TX, BROVANA NEB TX, LIPITOR 80MG PO DAILY, TESSALON PERLES 200MG PO TID, ROBITUSSIN DM 10 ML PO QID, ZYRTEC 10MG PO DAILY, TUSSIONEX 5ML PO Q12H PRN, LOMOTIL 1 TAB PO QID PRN, LOVENOX 30MG SC BID, PEPCID 40MG PO BID, TRICOR 160MG PO DAILY, DIFLUCAN 100MG PO DAILY, IVERMECTIN, SYNTHROID 100MCG PO DAILY, MAGIC MOUTHWASH 5ML QID PRN, MELATONIN 10MG PO HS, SOLU-MEDROL 125MG IV Q6H, SINGULAIR 10MG PO HS, PROTONIX 40MG PO DAILY, THIAMINE 200MG IV BID, AND ZINC SULFATE 220MG PO BID (2) Hypoxia Status: Acute (3) CHF (congestive heart failure) Status: Acute Qualifiers: Heart failure type: unspecified Heart failure chronicity: acute on chronic Qualified Code(s): I50.9 - Heart failure, unspecified (4) Dyspnea Status: Acute Qualifiers: Dyspnea type: shortness of breath Qualified Code(s): R06.02 - Shortness of breath
[2020-05-28] MEDS: K-DUR TAB 20 MEQ PO PRN (13:13)
[2020-05-28] MEDS: SINGULAIR TAB 10 MG PO SCH (20:20)
[2020-05-28] MEDS: PROCARDIA XL 24-hr PO SCH (20:20)
[2020-05-28] MEDS: MELATONIN PO SCH (20:21)
[2020-05-28] MEDS: COZAAR PO SCH (20:21)
[2020-05-29] MEDS: MUCOMYST 20% 200 MG/ML NEB SCH ×3 (00:27→15:00)
[2020-05-29] MEDS: ACCUNEB 1.25 MG NEBULE NEB SCH ×3 (00:27→15:00)
[2020-05-29] MEDS: NS 1000 ML 1,000 ML IV SCH (02:18)
[2020-05-29] MEDS: ASCORBIC ACID INJ MULTI-DOSE VIAL 1,500 MG in NS 100 ML IV 100 ML IV SCH ×2 (02:24→09:23)
[2020-05-29] MEDS: TESSALON PERLES PO SCH (05:12)
[2020-05-29] MEDS: FORTAZ or TAZICEF VIAL INJ 1 G in NS 100 ML IV + SPIKE MINIBAG* 100 ML IV SCH (05:12)
[2020-05-29] MEDS: SOLU-Medrol 125 MG VIAL IVP SCH (05:23)
[2020-05-29 05:53] LABS: ABG BASE EXCESS 7.8 mmol/L (-2.0-2.0)
[2020-05-29 05:54] LABS: ABG ALLEN TEST POSS; ABG HCO3 30.9 mmol/L (22-26)
[2020-05-29 06:05] LABS: BASOPHILS % (AUTO) 0.2 % (0.2-1.0); HEMATOCRIT 27.5 % (36.0-47.0); HEMOGLOBIN 9.2 g/dL (12.0-16.0); LYMPHOCYTES # (AUTO) 0.2 X10^3/uL (1.3-2.9); LYMPHOCYTES % (AUTO) 1.4 % (21.0-51.0); MEAN CORPUSCULAR HEMOGLOBIN 30.1 pg (27.0-34.0); MEAN CORPUSCULAR HGB CONC 33.5 g/dL (33.0-35.0); MEAN PLATELET VOLUME 6.7 fL (7.4-11.0); MONOCYTES # (AUTO) 0.3 x10^3/uL (0.3-0.8); NEUTROPHILS # (AUTO) 12.6 x10^3/uL (2.2-4.8); NEUTROPHILS % (AUTO) 96.4 % (42.0-75.0); PLATELET COUNT 287 X10^3/uL (150.0-450.0); RED BLOOD COUNT 3.06 X10^6/uL (3.5-5.4); RED CELL DISTRIBUTION WIDTH 16.2 % (11.6-16.5)
--- NOTE | 2020-05-29 06:11 | RAD ---
HISTORYShortness of breathSTUDYChest AP [id number] May 2020FINDINGSThe heart remains enlarged. No definite congestive heart failure is identified. Bilateral interstitial and some patchy alveolar infiltrates are unchanged in degree or distribution from the prior examination. No pleural effusions are identified. Bony thorax is unremarkable.IMPRESSIONNo change cardiomegaly without congestive heart failureNo change bilateral interstitial and patchy alveolar infiltrate right greater than leftElectronically signed by: ALTHEA ETIENNE (May 29, 2020 06:09:48)
[2020-05-29 06:27] LABS: ALANINE AMINOTRANSFERASE 22 Units/L (12-78); ALBUMIN 2.7 g/dL (3.4-5.0); ALKALINE PHOSPHATASE 96 Units/L (46-116); ASPARTATE AMINO TRANSFERASE 27 Units/L (15-37); BLOOD UREA NITROGEN 28 mg/dL (7-18); CALCIUM 7.8 mg/dL (8.5-10.1); CARBON DIOXIDE 27.8 mmol/L (21-32); CHLORIDE 108 mmol/L (98-107); COR CA(FOR HYPOALB) 8.8 mg/dL (8.5-10.1); COR NA(FOR HYPERGLY) 147 mmol/L (136-145); CREATININE 1.09 mg/dL (0.55-1.02); SODIUM 146 mmol/L (136-145); TOTAL PROTEIN 5.3 g/dL (6.4-8.2); eGFR NON BLACK RACES 52 (>60)
[2020-05-29 06:52] LABS: BAND NEUTROPHILS % 1 % (0-10); PLATELET MORPHOLOGY COMMENT NORMAL (NORMAL)
[2020-05-29] MEDS: PULMICORT NEB TX 0.5 MG NEB SCH (08:26)
[2020-05-29] MEDS: BROVANA IN SCH (08:31)
[2020-05-29] MEDS: ZINC SULFATE PO SCH (09:23)
[2020-05-29] MEDS: PEPCID TAB 40 MG PO SCH (09:24)
[2020-05-29] MEDS: VITAMIN D3 125 mcg (5,000 UNITS) PO SCH (09:24)
[2020-05-29] MEDS: LIPITOR TAB 80 MG PO SCH (09:25)
[2020-05-29] MEDS: ZyrTEC TAB 10 MG PO SCH (09:25)
[2020-05-29] MEDS: LOVENOX INJ 40 MG SYR SC SCH (09:25)
[2020-05-29] MEDS: PROTONIX TAB 40 MG PO SCH (09:25)
[2020-05-29] MEDS: SYNTHROID 100 mcg TAB PO SCH (09:26)
[2020-05-29] MEDS: TRICOR TAB 160 MG PO SCH (09:26)
[2020-05-29] MEDS: LEVAQUIN PREMIX IV 500 MG 500 MG/100 ML BAG IV SCH (09:26)
[2020-05-29] MEDS: DIFLUCAN PO SCH (09:26)
[2020-05-29] MEDS: THIAMINE HCL INJ IVP SCH (09:26)
[2020-05-29] MEDS: ROBITUSSIN DM PO SCH (09:26)
[2020-05-29 12:28] VITALS: BP 114/53
== END 2020-05-29 12:54 | disposition home health service (06) | DRG 177 ==
LOC: ER 16:50 → MED/SURG 22:21 → ICU 05-25 15:13 → MED/SURG 05-27 13:30
PROVIDERS: ADMIT Obstetrics & Gynecology Obstetrics; ATTEND Internal Medicine
DX: E78.2 Mixed hyperlipidemia; E03.8 Other specified hypothyroidism; J44.9 Chronic obstructive pulmonary disease, unspecified; I25.10 Atherosclerotic heart disease of native coronary artery without angina pectoris; I87.2 Venous insufficiency (chronic) (peripheral); I10 Essential (primary) hypertension; J12.82 Pneumonia due to coronavirus disease 2019; R06.02 Shortness of breath; Z79.01 Long term (current) use of anticoagulants; R79.89 Other specified abnormal findings of blood chemistry; R79.82 Elevated C-reactive protein (CRP); R09.02 Hypoxemia; R06.00 Dyspnea, unspecified; U07.1 COVID-19; I50.9 Heart failure, unspecified